=== PATIENT | male | born 1960 | race African-American/Black ===

== ENCOUNTER 2017-05-29 13:09 | Inpatient (IN) | payer OTHER ==
[2017-05-29] MEDS ORDERED: ASPIRIN 81 MG CHEWABLE TABLETS PO ONE (13:33)
--- NOTE | 2017-05-29 13:38 | PDOC ---
History of Present Illness - General Stated Complaint: DEFIBRILLATOR WENT OFF Time Seen by Provider: 05/29/17 13:25 History Source: Patient Exam Limitations: No Limitations - History of Present Illness Initial Comments: 05/29/17 13:36 Patient is a 56M with history of HTN, HLD, non-ischemic cardiomyopthy s/p defibrillator placement due to arrhythmia, TIA s/p ANTONIO showing vegetation, and ? afib (patient reported, not on chart or ekg) here today complaining of defibrillator discharge. Patient states that he was getting out of bed, started feeling dizzy, short of breath and off, then he was shocked. He states that he felt normal afterwards. He states that he feels fine now. He specifically denies chest pain, shortness of breath, abdominal pain and palpitations. [employer] was contacted, they state that the device discharged at 13:15 twice for vfib at 21 and 41J, with a normal rhythm both before and after the event. They also state that the device is still working properly according to their diagnostics. Patient denies nausea, vomiting, fever and chills. Past History - Past Medical History Allergies/Adverse Reactions: Allergies Allergy/AdvReac Type Severity Reaction Status Date / Time No Known Allergies Allergy Verified 05/29/17 13:37 Home Medications: Ambulatory Orders Metoprolol Tartrate [Lopressor -] 25 mg PO DAILY 02/15/12 Lisinopril [Prinivil -] 10 mg PO DAILY 07/16/13 Warfarin Na [Coumadin] 5 mg PO DAILY@1800 07/16/13 Atorvastatin Ca [Lipitor] 20 mg PO HS 05/29/17 Cardiac Disorders: Yes (cardiomyopathy; mural thrombus, defibrilator) CVA: Yes HTN: Yes - Surgical History Cardiac Surgery: Yes (ICD) - Suicide/Smoking/Psychosocial Hx Smoking Status: No Smoking History: Never smoked Number of Cigarettes Smoked Daily: 0 Hx Alcohol Use: Yes (OCCASIONALLY) Drug/Substance Use Hx: No Substance Use Type: Alcohol Review of Systems - Review of Systems Comments:: 05/29/17 13:54 GENERAL/CONSTITUTIONAL: No fever or chills. No weakness. HEAD, EYES, EARS, NOSE AND THROAT: No change in vision. No sore throat. CARDIOVASCULAR: No chest pain. Positive for shortness of breath RESPIRATORY: No cough, wheezing, or hemoptysis. GASTROINTESTINAL: No nausea, vomiting, diarrhea or constipation. GENITOURINARY: No dysuria, frequency, or change in urination. MUSCULOSKELETAL: No joint or muscle swelling or pain. No neck or back pain. SKIN: No rash NEUROLOGIC: No headache, vertigo, loss of consciousness, or change in strength/ sensation. ALLERGIC/IMMUNOLOGIC: No hives or skin allergy. *Physical Exam - Physical Exam Comments: 05/29/17 14:25 GENERAL: Awake, alert, and fully oriented, in no acute distress HEAD: No signs of trauma, normocephalic, atraumatic EYES: PERRLA, EOMI, sclera anicteric, conjunctiva clear LUNGS: No distress, speaks full sentences, clear to auscultation bilaterally HEART: Regular rate and rhythm, normal S1 and S2, no murmurs, rubs or gallops, peripheral pulses normal and equal bilaterally. ABDOMEN: Soft, nontender, normoactive bowel sounds. No guarding, no rebound. No masses EXTREMITIES: Normal inspection, Normal range of motion, no edema. No clubbing or cyanosis. NEUROLOGICAL: Cranial nerves II through XII grossly intact. Normal speech, no focal sensorimotor deficits SKIN: Warm, Dry, normal turgor, no rashes or lesions noted. ED Treatment Course - LABORATORY CBC & Chemistry Diagram: 05/29/17 14:00 05/29/17 14:00 - RADIOLOGY Radiology Studies Ordered: Category Date Time Status CHEST X-RAY PORTABLE* [RAD] Stat Radiology 05/29/17 13:34 Ordered Medical Decision Making - Medical Decision Making 05/29/17 14:25 56M with history of HTN, HLD, non-ischemic cardiomyopthy s/p defibrillator placement due to arrhythmia, TIA s/p ANTONIO showing vegetation, and ?afib (patient reported, not on chart or ekg) here today complaining of defibrillator discharge. Vital signs stable. Exam unremarkable. Two shocks for vfib per [employer] tech. Records and rhythm strip pending fax. Will evaluate further with cbc, cmp, mag, ekg, cxr, trop. Will give aspirin. EKG shows normal sinus rhythm with one PVC. Normal rate, normal axis. No st elevations/depressions. T-wave inversions in lateral leads. 05/29/17 14:40 Dr Leana Perez consulted on patient, requested full rhythm strip. No further reqs. Will put in formal consult. 05/29/17 14:47 CXR shows no acute cardiopulmonary process. 05/29/17 14:56 Laboratory Tests 05/29/17 05/29/17 14:00 14:00 WBC 6.8 Hgb 13.6 Hct 43.2 Plt Count 209 Potassium 4.6 Creatinine 1.7 H Troponin I 0.02 CBC normal. K and mag normal. Cr 1.7 at baseline. Trop .02. Spoke with Dr Acevedo , will admit to inpatient tele. Second trop scheduled for 7:15. *DC/Admit/Observation/Transfer Diagnosis at time of Disposition: Arrhythmia - Discharge Dispostion Condition at time of disposition: Stable Admit: Yes - Referrals - Patient Instructions - Post Discharge Activity
[2017-05-29] MEDS ORDERED: ASPIRIN 81 MG CHEWABLE TABLETS ONE (13:49)
[2017-05-29 14:13] LABS: BASO % 0.3 % (0-2.0); EOS % 1.2 % (0-4.5); MCH 28.6 pg (25.7-33.7); MCHC 31.5 g/dl (32.0-35.9); MEAN CELL VOLUME 90.8 fl (80-96); MEAN PLT VOLUME 10.2 fl (7.5-11.1); NEUT % 70.9 % (42.8-82.8); PLATELET COUNT 209 K/MM3 (134-434); RDW 13.6 % (11.9-15.9); WHITE BLOOD COUNT 6.8 K/mm3 (4.0-10.0)
--- NOTE | 2017-05-29 14:23 | PDOC ---
Attending Attestation - Resident Resident Name: Kirill Rivas - ED Attending Attestation I have performed the following: I have examined & evaluated the patient, The case was reviewed & discussed with the resident, I agree w/resident's findings & plan, Exceptions are as noted - HPI HPI: 05/29/17 15:19 56yo male presnets for eval of debrillator firing. Per [employer] had vfib at home. Defib x 2 episodes. Currently in sinus. [place] normal prior to defibrillation - Physicial Exam PE: 05/29/17 15:20 Gen: aaox3, nad heart: +s1s2 reg Lungs: cta b/l, L defib L chest wall abd: soft, nt/nd +bs ext: no c/c/e - Medical Decision Making 05/29/17 14:17 I, Dr. Terri Arango, DO, attest that this document has been prepared under my direction and personally reviewed by me in its entirety. I further attest, that it accurately reflects all work, treatment, procedures and medical decision -making performed by me. 05/29/17 14:17 56yo male s/p ICD defibrillation -vfib per [employer] strip faxed from them will check labs cxr currently in sinus rhythm sinus at 85, q waves anterior leads, t wave inversions lateral leads, abnl ekg 05/29/17 14:55 patient will be admitted to tele currently stable will be admitted to dr. brown
[2017-05-29 14:35] LABS: INR 1.54 (0.82-1.09); PROTHROMBIN TIME (PATIENT) 17.4 SEC (9.98-11.88)
[2017-05-29 14:45] LABS: ALBUMIN 3.7 g/dl (3.4-5.0); ANION GAP 7 (8-16); BILIRUBIN,TOTAL 0.4 mg/dL (0.2-1.0); CALCIUM 9.2 mg/dL (8.5-10.1); CO2 26 mmol/L (21-32); CPK 77 IU/L (39-308); CREATININE 1.7 mg/dL (0.7-1.3); GLUCOSE,RANDOM 119 mg/dL (74-106); MAGNESIUM 2.1 mg/dL (1.8-2.4); SGOT/AST 28 U/L (15-37); SGPT/ALT 39 U/L (12-78); TOT PROT 6.7 g/dl (6.4-8.2)
[2017-05-29 14:48] LABS: ALK PHOS 89 U/L (45-117); TROPONIN I 0.02 ng/ml (0.00-0.05)
--- NOTE | 2017-05-29 15:03 | CON.CARD ---
Cardiology Consult (text) - Consultation Consultation Note: CC: ICD shock History of Present Illness: 56 m hx syst chf (nicm, non obs cad on cath 2007 and 2014), icd ([employer]), VF s/p icd shocks 07/2014, dvt? , hld, htn, cva/tia's, ckd who presents s/p ICD shock. reports sitting up in bed today and briefly feeling a little nausea and dizziness. Within seconds he lost consciousness and awoke from the shock from his defibrillator. Monthly weights have been stable. Endorses a GI illness with diarrhea a couple of weeks ago, but otherwise was in good health. Sedentary, but did not notice change in functional capacity. Denies etoh or changes in medication doses. Of note, patient was thought to be on 50 mg of metoprolol, but according to his pill bottle was only on 25 mg of metoprolol. No palps, sob, cp, pnd, orthopnea, le edema, pmhx/Pshx: per hpi social hx: Never smoked family hx: Denies (h/o CAD or chf) ros: per hpi. no f/c/s, cough, congestion, visual disturbances, rashes, bleeding, h/a Ambulatory Orders Metoprolol succinate 25 mg PO DAILY 02/15/12 Lisinopril [Prinivil -] 10 mg PO DAILY 07/16/13 Warfarin Na [Coumadin] 5 mg PO DAILY@1800 07/16/13 Atorvastatin Ca [Lipitor] 20 mg PO HS 05/29/17 Vital Signs - 24 hr 05/29/17 13:34 Temperature 98.5 F Pulse Rate 85 Respiratory 20 Rate Blood Pressure 147/95 O2 Sat by Pulse 96 Oximetry (%) Intake & Output 05/27/17 05/28/17 05/29/17 05/30/17 07:59 07:59 07:59 07:59 Weight 230 lb Constitutional: Yes: Well Nourished, No Distress Eyes: No: Sclera Icterus HENT: No: Nasal Congestion Neck: No: Decreased ROM Respiratory: Yes: CTA Bilaterally. No: Accessory Muscle Use, Rales, Wheezes Gastrointestinal: Yes: Normal Bowel Sounds. No: Distention, Hepatomegaly, Palpable Mass, Tenderness Cardiovascular: Yes: Regular Rate and Rhythm JVD: No Carotid Bruit: No PMI: Non-Displaced Heart Sounds: Yes: S1, S2. No: Gallop Murmur: No: Systolic Murmur, Diastolic Murmur Musculoskeletal: Yes: Other (No kyphosis) Extremities: No: Cool, Cyanosis Edema: No Peripheral Pulses: 2+ Left Carotid, 2+ Right Carotid, 2+ Left Doralis Pedis, 2+ Right Dorsalis Pedis Integumentary: No: Jaundice Neurological: Yes: Alert, Oriented (x3) Psychiatric: No: Agitated - Other Data Labs, Other Data: Laboratory Tests 07/19/14 05/29/17 05/29/17 05:50 14:00 14:00 WBC 6.8 Hgb 13.6 Plt Count 209 INR 1.54 H Potassium Creatinine 1.5 H D Magnesium Troponin I 05/29/17 14:00 WBC Hgb Plt Count INR Potassium 4.6 Creatinine 1.7 H Magnesium 2.1 Troponin I 0.02 ekg: sr with pvc. lateral twi. ICD interrogation: VF treated with 2 shocks echo 08/2015: mod lve, mod-sev dec lvef, global hk, nl rv, mild AR, mild ao root dil 4.3 cm cath 07/2014: non obs cad (only <30% pRCA). Imaging - Results Chest X-ray: Report Reviewed (clear lungs/pleura) Assessment/Plan 56 m hx syst chf (nicm, non obs cad on cath 2007 and 2014), icd ([employer]), VF s/p icd shocks 07/2014, dvt? , hld, htn, cva/tia's, ckd who presents s/p ICD shock. Ventricular fibrillation: - device interrogated in ER ([employer]) shows appropriate therapy delivered x 2 for VF. Electrolytes wnl. - CE neg x 1. Con't toby - No obvious signs of overload, will defer diuresis for now. - repeat echo. - Patient was only on 25 mg of toprol instead of 50 mg. Would increase dose back to 50 mg. nonisch CMP: - appears euvolemic. con't megan, bb. repeat echo HTN: - meds as above. monitor bp. CKD: - slightly increased from baseline. h/o CVA: - no new neurologic defecits. - unclear if patient is on coumadin for h/o CVA or for h/o DVT. - currently INR subtherapeutic, coumadin dosing per pmd. - con't statin.
[2017-05-29] MEDS ORDERED: WARFARIN NA 5 MG TABLET (UD) PO ONE (18:00)
[2017-05-29] MEDS: WARFARIN NA 5 MG TABLET (UD) PO SCH (18:02)
[2017-05-29] MEDS ORDERED: ACETAMINOPHEN 325 MG TABLET (FP) PO PRN (18:25)
--- NOTE | 2017-05-29 18:25 | HP ---
Admitting History and Physical - Primary Care Physician PCP: Sulma Acevedo - Admission History of Present Illness: Patient is a 56M with history of HTN, HLD, ckd, non-ischemic cardiomyopthy s/p defibrillator placement due to arrhythmia, TIA and afib--- here today complaining of defibrillator discharge. Patient states that he was getting out of bed, started feeling dizzy, short of breath and off, then he was shocked. He states that he felt normal afterwards. He states that he feels fine now. He specifically denies chest pain, shortness of breath, abdominal pain and palpitations. [employer] was contacted, they state that the device discharged at 13:15 twice for vfib at 21 and 41J, with a normal rhythm both before and after the event. They also state that the device is still working properly according to their diagnostics. Patient denies nausea, vomiting, fever and chills. pt well known to me from office pt to be admitted to tele seen by me in er at present comfortable denies cp/sob/ abd pain denies headche/ dizziness no u /b trouble had discussed with er physician earlier also. History Source: Patient Limitations to Obtaining History: No Limitations - Past Medical History [employer]USTOM [employer]ILOR: Yes: TIA Cardiovascular: Yes: Other (nonischemic cardiomyopathy--status post AICD) - Smoking History Smoking history: Never smoked Have you smoked in the past 12 months: No Aproximately how many cigarettes per day: 0 - Alcohol/Substance Use Hx Alcohol Use: Yes (OCCASIONALLY) Home Medications - Allergies Allergies/Adverse Reactions: Allergies Allergy/AdvReac Type Severity Reaction Status Date / Time No Known Allergies Allergy Verified 05/29/17 13:37 - Home Medications Home Medications: Ambulatory Orders Metoprolol Tartrate [Lopressor -] 25 mg PO DAILY 02/15/12 Lisinopril [Prinivil -] 10 mg PO DAILY 07/16/13 Warfarin Na [Coumadin] 5 mg PO DAILY@1800 07/16/13 Atorvastatin Ca [Lipitor] 20 mg PO HS 05/29/17 Review of Systems Unable to obtain ROS, reason: see barrow Physical Examination Vital Signs: Vital Signs Temperature 98.5 F 05/29/17 13:34 Pulse Rate 83 05/29/17 17:12 Respiratory Rate 20 05/29/17 13:34 Blood Pressure 136/86 12/20/17 17:12 O2 Sat by Pulse Oximetry (%) 100 05/29/17 17:12 Constitutional: Yes: No Distress, Calm Eyes: Yes: Conjunctiva Clear, PERRL HENT: Yes: WNL Neck: Yes: Supple Cardiovascular: Yes: Regular Rate and Rhythm Respiratory: Yes: CTA Bilaterally Gastrointestinal: Yes: Normal Bowel Sounds, Soft Edema: No Neurological: Yes: WNL, Alert Psychiatric: Yes: Alert Labs: CBC, BMP 05/29/17 14:00 05/29/17 14:00 Imaging - Results Chest X-ray: Report Reviewed Problem List - Problems (1) Defibrillator discharge Code(s): Z45.02 - ENCNTR FOR ADJUST AND MGMT OF AUTOMATIC IMPLNTBL CARD DEFIB (2) Hypertension Code(s): I10 - ESSENTIAL (PRIMARY) HYPERTENSION (3) Renal insufficiency Code(s): N28.9 - DISORDER OF KIDNEY AND URETER, UNSPECIFIED Assessment/Plan monitor on tele closely preet goetz blockers cardiology on case inr subtherapeutic- extra dose today discussed with nursing staff also. will follow cc time 30 min.
[2017-05-29 19:01] VITALS: BMI 31.8
[2017-05-29 19:34] LABS: TROPONIN I 0.05 ng/ml (0.00-0.05)
[2017-05-29] MEDS ORDERED: ATORVASTATIN CA 40 MG TABLET (FP) ONE (21:34)
[2017-05-29] MEDS: ATORVASTATIN CA 20 MG TABLET (FP) PO SCH (21:44)
[2017-05-30 07:17] LABS: BASO % 0.9 % (0-2.0); EOS % 1.6 % (0-4.5); MCH 28.9 pg (25.7-33.7); MCHC 31.8 g/dl (32.0-35.9); MEAN CELL VOLUME 90.8 fl (80-96); MEAN PLT VOLUME 11.2 fl (7.5-11.1); PLATELET COUNT 195 K/MM3 (134-434); RDW 13.8 % (11.9-15.9); WHITE BLOOD COUNT 8.2 K/mm3 (4.0-10.0)
[2017-05-30 07:46] LABS: INR 1.6 (0.82-1.09); PROTHROMBIN TIME (PATIENT) 18.1 SEC (9.98-11.88)
[2017-05-30 08:09] LABS: ALBUMIN 3.5 g/dl (3.4-5.0); ANION GAP 9 (8-16); CALCIUM 8.6 mg/dL (8.5-10.1); CHOLESTEROL 167 mg/dL (50-200); CO2 22 mmol/L (21-32); CREATININE 1.4 mg/dL (0.7-1.3); GLUCOSE,RANDOM 93 mg/dL (74-106); SGOT/AST 29 U/L (15-37); SGPT/ALT 41 U/L (12-78)
[2017-05-30 08:15] LABS: TROPONIN I 0.03 ng/ml (0.00-0.05)
[2017-05-30 08:21] LABS: ALK PHOS 90 U/L (45-117); BILIRUBIN,TOTAL 0.6 mg/dL (0.2-1.0); THYROID STIMULATING HORMONE 5.59 uIU/ml (0.358-3.74); TOT PROT 6.5 g/dl (6.4-8.2)
[2017-05-30] MEDS ORDERED: METOPROLOL SUCCINATE 50 MG TAB.SR.24H (FP) ONE (10:27)
[2017-05-30] MEDS ORDERED: LISINOPRIL 5 MG TABLET (FP) ONE (10:28)
[2017-05-30] MEDS: LISINOPRIL 10 MG TABLET (FP) PO SCH (10:32)
[2017-05-30] MEDS: METOPROLOL SUCCINATE 50 MG TAB.SR.24H (FP) PO SCH (10:33)
[2017-05-30 10:58] LABS: FREE T4 1.07 ng/dl (0.76-1.16)
--- NOTE | 2017-05-30 11:20 | PN ---
Progress Note (short form) - Note Progress Note: s: feeling well, at baseline. no cp sob palps dizzy o: Vital Signs Period Temp Pulse Resp BP Sys/Palmer Pulse Ox Last 24 Hr 98.5 F-98.7 F 65-85 18-20 136-167/77-95 95-100 Constitutional: Yes: Well Nourished, No Distress Eyes: No: Sclera Icterus Respiratory: Yes: CTA Bilaterally. No: Accessory Muscle Use, Rales, Wheezes Gastrointestinal: Yes: Normal Bowel Sounds. No: Distention, Hepatomegaly, Palpable Mass, Tenderness Cardiovascular: Yes: Regular Rate and Rhythm JVD: No Heart Sounds: Yes: S1, S2. No: Gallop Murmur: No: Systolic Murmur, Diastolic Murmur Musculoskeletal: Yes: Other (No kyphosis) Extremities: No: Cool, Cyanosis Edema: No Integumentary: No: Jaundice Neurological: Yes: Alert, Oriented (x3) Psychiatric: No: Agitated Current Medications Generic Name Dose Route Start Last Admin Trade Name Freq PRN Reason Stop Dose Admin Acetaminophen 650 mg 05/29/17 18:25 Tylenol - PO Q6H PRN FEVER OR PAIN Atorvastatin Calcium 20 mg 05/29/17 22:00 05/29/17 21:44 Lipitor - PO 20 mg HS MARIANA Administration Lisinopril 10 mg 05/30/17 10:00 05/30/17 10:32 Prinivil PO Not Given DAILY MARIANA Metoprolol Succinate 50 mg 05/30/17 10:00 05/30/17 10:33 Toprol Xl - PO Not Given DAILY [facility] Warfarin Sodium 5 mg 05/29/17 18:00 05/29/17 18:02 Coumadin - PO Not Given DAILY@1800 MARIANA Warfarin Sodium 3 mg 05/30/17 18:00 Coumadin - PO 05/30/17 18:01 ONCE@1800 ONE - Other Data Labs, Other Data: CBC, BMP 05/30/17 06:00 05/30/17 06:00 ekg: sr with pvc. lateral twi. ICD interrogation: VF treated with 2 shocks echo 08/2015: mod lve, mod-sev dec lvef, global hk, nl rv, mild AR, mild ao root dil 4.3 cm cath 07/2014: non obs cad (only <30% pRCA). tele: sr, nsvt 6 beats Assessment/Plan 56 m hx syst chf (nicm, non obs cad on cath 2007 and 2014), icd ([employer]), VF s/p icd shocks 07/2014, dvt? , hld, htn, cva/tia's, ckd who presents s/p ICD shock. Ventricular fibrillation: - device interrogated in ER ([employer])) shows appropriate therapy delivered x 2 for VF. Electrolytes wnl. - Dillon neg, no signs acs - No obvious signs of overload, will defer diuresis for now. - repeat echo. - Patient was only on 25 mg of toprol instead of 50 mg. Will increase dose back to 50 mg. - monitor on tele 24 hours, possible dc home tomorrow nonisch CMP: - appears euvolemic. con't megan, bb. repeat echo HTN: - meds as above. monitor bp. CKD: - slightly increased from baseline. h/o CVA: - no new neurologic defecits. - unclear if patient is on coumadin for h/o CVA or for h/o DVT. - currently INR subtherapeutic, coumadin dosing per pmd. - con't statin.
--- NOTE | 2017-05-30 16:33 | EKG ---
Test Reason : Blood Pressure : / mmHG Vent. Rate : 085 BPM Atrial Rate : 085 BPM P-R Int : 190 ms QRS Dur : 116 ms QT Int : 376 ms P-R-T Axes : 046 -18 105 degrees QTc Int : 447 ms SINUS RHYTHM WITH OCCASIONAL PREMATURE VENTRICULAR COMPLEXES SEPTAL INFARCT (CITED ON OR BEFORE 18-JUL-2014) T WAVE ABNORMALITY, CONSIDER LATERAL ISCHEMIA ABNORMAL ECG WHEN COMPARED WITH ECG OF 18-JUL-2014 12:22, PREMATURE VENTRICULAR COMPLEXES ARE NOW PRESENT QUESTIONABLE CHANGE IN INITIAL FORCES OF SEPTAL LEADS NONSPECIFIC T WAVE ABNORMALITY, WORSE IN INFERIOR LEADS Confirmed by EVERETTE FELDMAN MD ([id number]) on 05/30/2017 4:33:10 PM Referred By: Confirmed By:EVERETTE FELDMAN MD
[2017-05-30] MEDS ORDERED: WARFARIN NA 3 MG TABLET PO ONE (18:00)
[2017-05-30] MEDS ORDERED: WARFARIN NA 1 MG TABLET (FP) ONE (18:07)
[2017-05-30] MEDS ORDERED: WARFARIN NA 5 MG TABLET (UD) ONE (18:07)
[2017-05-30] MEDS: WARFARIN NA 5 MG TABLET (UD) PO SCH (18:13)
--- NOTE | 2017-05-30 19:21 | PN ---
Progress Note (short form) - Note Progress Note: Patient seen and examined. Comfortable No complaints Feels well and denies chest pain or short of breath. Vital Signs Temp 98.2 F 05/30/17 18:59 Pulse 74 05/30/17 18:59 Resp 14 05/30/17 18:59 BP 162/96 05/30/17 18:59 Pulse Ox 99 05/30/17 17:59 Intake & Output 05/29/17 05/30/17 05/30/17 23:59 11:59 23:59 Intake Total 400 Balance 400 Weight 235 lb Intake: Oral 400 Other: Voiding Method Toilet Height 6 ft Body Mass Index (BMI) 31.8 Weight Measurement Method Stated by Patient Weight Measurement Method Est/Stated by Patient Active Medications Acetaminophen (Tylenol -) 650 mg PO Q6H PRN PRN Reason: FEVER OR PAIN Amlodipine Besylate (Norvasc -) 5 mg PO DAILY [facility] Atorvastatin Calcium (Lipitor -) 20 mg PO HS [facility] Last Admin: 05/29/17 21:44 Dose: 20 mg Lisinopril (Prinivil) 10 mg PO DAILY [facility] Last Admin: 05/30/17 10:32 Dose: Not Given Metoprolol Succinate (Toprol Xl -) 50 mg PO DAILY [facility] Last Admin: 05/30/17 10:33 Dose: Not Given Warfarin Sodium (Coumadin -) 5 mg PO DAILY@1800 [facility] Last Admin: 05/30/17 18:13 Dose: 5 mg CBC, BMP 05/30/17 06:00 05/30/17 06:00 Physical Examination Vital Signs: Vital Signs Temperature 98.5 F 05/29/17 13:34 Pulse Rate 83 05/29/17 17:12 Respiratory Rate 20 05/29/17 13:34 Blood Pressure 136/86 05/29/17 17:12 O2 Sat by Pulse Oximetry (%) 100 05/29/17 17:12 Constitutional: Yes: No Distress, Calm/comfortable Eyes: Yes: Conjunctiva Clear, PERRLA HENT: Yes: WNL Neck: Yes: Supple Cardiovascular: Yes: Regular Rate and Rhythm Respiratory: Yes: CTA Bilaterally Gastrointestinal: Yes: Normal Bowel Sounds, Soft Edema: No Neurological: Yes: WNL, Alert--no deficits Psychiatric: Yes: Alert Imaging - Results Chest X-ray: Report Reviewed Assessment/Plan clinically stable Continue present care Extra dose of Coumadin today Cardiology on case Overall stable Anticipate discharge tomorrow if cleared by cardiology Discussed with patient Patient in agreement Problem List - Problems (1) Defibrillator discharge Code(s): Z45.02 - ENCNTR FOR ADJUST AND MGMT OF AUTOMATIC IMPLNTBL CARD DEFIB (2) Hypertension Code(s): I10 - ESSENTIAL (PRIMARY) HYPERTENSION (3) Renal insufficiency Code(s): N28.9 - DISORDER OF KIDNEY AND URETER, UNSPECIFIED
[2017-05-30] MEDS: ATORVASTATIN CA 20 MG TABLET (FP) PO SCH (21:10)
[2017-05-30] MEDS: amLODIPine BESYLATE 5 MG TABLET (FP) PO SCH (21:11)
[2017-05-31 07:54] LABS: INR 1.72 (0.82-1.09); PROTHROMBIN TIME (PATIENT) 19.4 SEC (9.98-11.88)
--- NOTE | 2017-05-31 09:33 | DS ---
Physical Examination Vital Signs: Vital Signs patient seen eand examined today in his room wants to go home feels well no complaints denies chest pain, sob, dizziness, palpitations Temperature 98.6 F 05/31/17 06:00 Pulse Rate 84 05/31/17 06:00 Respiratory Rate 18 05/31/17 06:00 Blood Pressure 145/95 05/31/17 06:00 O2 Sat by Pulse Oximetry (%) 99 05/30/17 21:00 Constitutional: Yes: No Distress, Calm Eyes: Yes: WNL, Conjunctiva Clear Neck: Yes: Supple Cardiovascular: Yes: Regular Rate and Rhythm Respiratory: Yes: Regular, CTA Bilaterally Gastrointestinal: Yes: Normal Bowel Sounds, Soft Labs: CBC, BMP 05/30/17 06:00 05/30/17 06:00 Discharge Summary Reason For Visit: CARDIAC ARRHYTHMIA Current Active Problems Arrhythmia (Acute) Defibrillator discharge (Acute) Hypertension (Acute) Renal insufficiency (Acute) Hospital Course: Patient admitted after defibrillator discharge ICD interrogation - VF- S/P defibrillator discharge seen by cardiology, echo done electrolytes, TSH were WNL no more arrythmia in tele history of NICM- EF-38% History of TIA ? PAF non obstructive CAD - PATIENT to follow up with PMD AND cardiology in one week will give extra dose of coumadin tonight Condition: Stable - Instructions Referrals: Sulma Acevedo MD [Primary Care Provider] - Disposition: HOME - Home Medications Comprehensive Discharge Medication List: Ambulatory Orders SEE MEDICATION LIST IN D/C PLAN
[2017-05-31 09:45] VITALS: BP 154/88; PULSE 88; TEMP 98.2
[2017-05-31] MEDS: amLODIPine BESYLATE 5 MG TABLET (FP) PO SCH (09:51)
[2017-05-31] MEDS: LISINOPRIL 10 MG TABLET (FP) PO SCH (09:51)
[2017-05-31] MEDS: METOPROLOL SUCCINATE 50 MG TAB.SR.24H (FP) PO SCH (09:52)
--- NOTE | 2017-05-31 11:27 | PN ---
Progress Note (short form) - Note Progress Note: s: feeling well, at baseline. no cp sob palps dizzy o: Vital Signs Period Temp Pulse Resp BP Sys/Palmer Pulse Ox Last 24 Hr 98.2 F-98.9 F 68-88 14-18 129-162/75-96 98-99 Constitutional: Yes: Well Nourished, No Distress Eyes: No: Sclera Icterus Respiratory: Yes: CTA Bilaterally. No: Accessory Muscle Use, Rales, Wheezes Gastrointestinal: Yes: Normal Bowel Sounds. No: Distention, Hepatomegaly, Palpable Mass, Tenderness Cardiovascular: Yes: Regular Rate and Rhythm JVD: No Heart Sounds: Yes: S1, S2. No: Gallop Murmur: No: Systolic Murmur, Diastolic Murmur Musculoskeletal: Yes: Other (No kyphosis) Extremities: No: Cool, Cyanosis Edema: No Integumentary: No: Jaundice Neurological: Yes: Alert, Oriented (x3) Psychiatric: No: Agitated Current Medications Generic Name Dose Route Start Last Admin Trade Name Freq PRN Reason Stop Dose Admin Acetaminophen 650 mg 05/29/17 18:25 Tylenol - PO Q6H PRN FEVER OR PAIN Amlodipine Besylate 5 mg 05/30/17 19:30 05/31/17 09:51 Norvasc - PO 5 mg DAILY MARIANA Administration Atorvastatin Calcium 20 mg 05/29/17 22:00 05/30/17 21:10 Lipitor - PO 20 mg HS MARIANA Administration Lisinopril 10 mg 05/30/17 10:00 05/31/17 09:51 Prinivil PO Not Given DAILY MARIANA Metoprolol Succinate 50 mg 05/30/17 10:00 05/31/17 09:52 Toprol Xl - PO Not Given DAILY MARIANA Warfarin Sodium 5 mg 05/29/17 18:00 05/30/17 18:13 Coumadin - PO 5 mg DAILY@1800 MARIANA Administration Warfarin Sodium 2 mg 05/31/17 11:30 Coumadin - PO 05/31/17 11:31 ONCE ONE - Other Data Labs, Other Data: CBC, BMP 05/30/17 06:00 05/30/17 06:00 ekg: sr with pvc. lateral twi. ICD interrogation: VF treated with 2 shocks echo 08/2015: mod lve, mod-sev dec lvef, global hk, nl rv, mild AR, mild ao root dil 4.3 cm echo 05/2017: lvef 25-30, global hk, nl rv, mild ar, rvsp 30-40 cath 07/2014: non obs cad (only <30% pRCA). tele: sr, brief nsvt Assessment/Plan 56 m hx syst chf (nicm, non obs cad on cath 2007 and 2014), icd ([employer]), VF s/p icd shocks 07/2014, dvt? , hld, htn, cva/tia's, ckd who presents s/p ICD shock. Ventricular fibrillation: - device interrogated in ER ([employer]) shows appropriate therapy delivered x 2 for VF. Electrolytes wnl. - Dillon neg, no signs acs - No obvious signs of overload, will defer diuresis for now. - repeat echo similar to prior - tele benign - Patient was only on 25 mg of toprol instead of 50 mg. Will increase dose back to 50 mg. nonisch CMP: - appears euvolemic. con't megan, bb. HTN: - meds as above. CKD: -stable h/o CVA: - no new neurologic defecits. - unclear if patient is on coumadin for h/o CVA or for h/o DVT. - con't statin. cardiac armenta stable for dc
[2017-05-31] MEDS: WARFARIN NA 5 MG TABLET (UD) PO SCH (11:38)
[2017-05-31] MEDS: WARFARIN NA 2 MG TABLET (UD) PO ONE ×2 (11:38→11:39)
--- NOTE | 2017-05-31 18:12 | PN ---
Progress Note (short form) - Note Progress Note: patient seen and examined with DEEPAK Harding earlier today. Patient has no complaints I reviewed the documentation I discussed the case with [employer] Meaghan I reconciled the medications with her. Agree with exam assessment and plan Discharged today patient to follow in office--Next Saturday--recheck INR Patient also to follow with cardiology Patient in agreement Vital Signs Period Temp Pulse Resp BP Sys/Palmer Pulse Ox Last 24 Hr 98.2 F-98.9 F 68-88 14-18 139-162/75-96 99-99 CBC, BMP 05/30/17 06:00 05/30/17 06:00 INR, PTT INR 1.72 (0.82-1.09) H 05/31/17 05:05 Physical Examination Constitutional: Yes: No Distress, Calm/comfortable Eyes: Yes: Conjunctiva Clear, PERRLA HENT: Yes: WNL Neck: Yes: Supple Cardiovascular: Yes: Regular Rate and Rhythm Respiratory: Yes: CTA Bilaterally Gastrointestinal: Yes: Normal Bowel Sounds, Soft Edema: No Neurological: Yes: WNL, Alert--no deficits Psychiatric: Yes: Alert assessment and plan stable Extra dose of Coumadin today Before discharge Problem List - Problems (1) Defibrillator discharge Code(s): Z45.02 - ENCNTR FOR ADJUST AND MGMT OF AUTOMATIC IMPLNTBL CARD DEFIB (2) Hypertension Code(s): I10 - ESSENTIAL (PRIMARY) HYPERTENSION (3) Renal insufficiency Code(s): N28.9 - DISORDER OF KIDNEY AND URETER, UNSPECIFIED
== END 2017-05-31 11:48 | disposition home or self-care (01) | DRG 309 ==
LOC: JER 13:09 → JERBED 14:58 → J4W 05-30 18:21
PROVIDERS: ADMIT Internal Medicine; ATTEND Internal Medicine
PROC: 4A02XFZ Measurement of Cardiac Rhythm, External Approach (ICD-10-PCS; principal; 2017-05-30)
DX: I49.01 Ventricular fibrillation (principal); I50.22 Chronic systolic (congestive) heart failure; I13.0 Hypertensive heart and chronic kidney disease with heart failure and stage 1 through stage 4 chronic kidney disease, or unspecified chronic kidney disease; I42.8 Other cardiomyopathies; E78.5 Hyperlipidemia, unspecified; Z86.73 Personal history of transient ischemic attack (TIA), and cerebral infarction without residual deficits; N18.9 Chronic kidney disease, unspecified; I25.10 Atherosclerotic heart disease of native coronary artery without angina pectoris; Z95.810 Presence of automatic (implantable) cardiac defibrillator
CPT/HCPCS: 36415; 71010-TC; 80053; 82465; 82550; 83735; 84439; 84443; 84484; 85025; 85610; 93005; 93010; 93306-TC; 99285-25

== ENCOUNTER 2017-06-08 07:38 | Inpatient (IN) | payer OTHER ==
[2017-06-08 07:48] VITALS: BMI 31.6
--- NOTE | 2017-06-08 07:52 | PDOC ---
History of Present Illness - General Chief Complaint: Lightheaded Stated Complaint: LIGHTHEADED, SOB Time Seen by Provider: 06/08/17 07:51 History Source: Patient - History of Present Illness Initial Comments: 06/08/17 08:23 Patient is a 56M with history of HTN, HLD, ckd, non-ischemic cardiomyopthy s/p defibrillator placement due to arrhythmia, TIA and afib admitted to telemetry last week (d/c on the ) for defibrillator discharge, presents to the ER today after waking up this morning with nausea, dizziness and shortness of breath. He describes the dizziness as feeling off balance "like drunk". Was discharged on amlodipine last time but stopped it two days ago due to side effect of nausea , product support representative aware. Did not take his Metoprolol and Lasix this morning. Still nauseous in the ED but denies any episode of vomiting. Denies headache. Patient doesn't feel this is due to defibrillator like last time. Denies acute changes in vision, neurological deficits. Echo done on the describes sever left ventricular ejection fraction of 25- 30%. 06/08/17 08:41 06/08/17 08:53 Past History - Past Medical History Allergies/Adverse Reactions: Allergies Allergy/AdvReac Type Severity Reaction Status Date / Time No Known Allergies Allergy Verified 06/08/17 07:46 Home Medications: Ambulatory Orders Lisinopril [Prinivil] 10 mg PO DAILY 07/16/13 Atorvastatin Ca [Lipitor] 20 mg PO HS 05/29/17 Acetaminophen [Tylenol .Regular Strength -] 650 mg PO Q6H PRN tablet 05/31/17 Metoprolol Succinate [Toprol XL -] 50 mg PO DAILY 30 Days #30 tab.sr.24h Warfarin Na [Coumadin -] 5 mg PO DAILY@1800 tablet 05/31/17 Warfarin Na [Coumadin] 7.5 mg PO DAILY 06/08/17 Cardiac Disorders: Yes (cardiomyopathy; mural thrombus, defibrilator) CVA: Yes COPD: No HTN: Yes - Surgical History Cardiac Surgery: Yes (ICD) - Immunization History Immunization Up to Date: Yes - Suicide/Smoking/Psychosocial Hx Smoking Status: No Smoking History: Never smoked Have you smoked in the past 12 months: No Number of Cigarettes Smoked Daily: 0 Hx Alcohol Use: Yes (social) Drug/Substance Use Hx: No Substance Use Type: Alcohol Review of Systems - Review of Systems Able to Perform ROS?: Yes Is the patient limited Kazakh proficient: No Constitutional: Yes: See HPI HEENTM: No: Symptoms Reported Respiratory: Yes: See HPI, Shortness of Breath Cardiac (ROS): No: Symptoms Reported ABD/GI: No: Symptoms Reported : No: Symptoms Reported Musculoskeletal: No: Symptoms Reported Integumentary: No: Symptoms Reported Neurological: Yes: See HPI Endocrine: No: Symptoms Reported Hematologic/Lymphatic: No: Symptoms Reported All Other Systems: Reviewed and Negative *Physical Exam - Vital Signs Last Vital Signs Temp Pulse Resp BP Pulse Ox 98.3 F 55 L 20 184/89 96 06/08/17 07:43 06/08/17 07:43 06/08/17 07:43 06/08/17 07:43 06/08/17 07:43 - Physical Exam General Appearance: Yes: Nourished, Appropriately Dressed. No: Apparent Distress HEENT: positive: EOMI, CHAVEZ, Normal ENT Inspection Neck: positive: Trachea midline. negative: Tender Respiratory/Chest: positive: Lungs Clear, Normal Breath Sounds. negative: Chest Tender, Respiratory Distress Cardiovascular: positive: Irregularly Irregular Vascular Pulses: Dorsalis-Pedis (R): 2+, Doralis-Pedis (L): 2+ Gastrointestinal/Abdominal: positive: Normal Bowel Sounds, Flat. negative: Tender Musculoskeletal: positive: Normal Inspection Extremity: positive: Delayed Capillary Refill Neurologic: positive: Fully Oriented, Alert, Normal Mood/Affect ED Treatment Course - LABORATORY CBC & Chemistry Diagram: 06/08/17 08:27 06/08/17 08:27 Medical Decision Making - Medical Decision Making 06/08/17 09:42 Patient is a 56M with history of HTN, HLD, ckd, non-ischemic cardiomyopthy s/p defibrillator placement due to arrhythmia, TIA and afib presenting with dizziness, sob and nausea. workup for arrythmia with defib. interrogation, cardiac workup vs pneumonia vs stroke EKG: Sinus rhtym with occasional PVC's. Possible Left atrial enlargement Septal infarct, age undertermined Inferior infarct, age undertermined T wave abnormality, consider lateral ischemia.. Ventricular rate 93 LA:190 QRS: 110. QT:382 [employer] Defibrillator device interrogated. Fax pending 06/08/17 09:44 Chest xray negative. Labs pending. TSh ordered as it was elevated last visit. 06/08/17 10:13 All labs WNL. BP repeated: 158/100 06/08/17 10:15 Morning Home meds administered (toprol xl and lisinopril) 06/08/17 11:[address] [facility] obs for evaluation of vertigo in the context of stroke history, cva event. *DC/Admit/Observation/Transfer Diagnosis at time of Disposition: Vertigo, Pre-syncope - Discharge Dispostion Admit: Yes - Referrals Referrals: Sulma Acevedo MD [Primary Care Provider] - - Patient Instructions - Post Discharge Activity
--- NOTE | 2017-06-08 07:52 | PDOC ---
Attending Attestation - Resident Resident Name: [email or web address] - HPI HPI: 06/08/17 09:35 pt presents to the ED complaining of generalized malaise, shortness of breath and feeling " off balance" . Denies chest pain. States that he feels like he is on a boat or has been drinking. Recent admission for defibrilator firing, with negative work up. - Physicial Exam PE: 06/08/17 09:36 Agree with resident exam. Patient is well appearing with clear lungs. - Medical Decision Making 06/08/17 09:36 Pt presents to the ED complaining of shortness of breath and a feeling of being "off balance" that seems consistent with vertigo. Patient is high risk for CVA. Will admit to observation for MRI. Patient is also complaining of SOB and ROCK. May be an anginal equivalent, although the patient has a recent negative cardiac work up. Will check serial cardiac enzymes.
[2017-06-08 08:51] LABS: BASO % 1.2 % (0-2.0); EOS % 1.8 % (0-4.5); HEMATOCRIT 45.6 % (35.4-49); HEMOGLOBIN 14.2 GM/dL (11.7-16.9); LYMPH % 21.6 % (8-40); MCH 28.2 pg (25.7-33.7); MCHC 31.2 g/dl (32.0-35.9); MEAN CELL VOLUME 90.4 fl (80-96); MEAN PLT VOLUME 10.8 fl (7.5-11.1); MONO % 9.9 % (3.8-10.2); NEUT % 65.5 % (42.8-82.8); PLATELET COUNT 165 K/MM3 (134-434); RBC 5.05 M/mm3 (4.00-5.60); RDW 13.1 % (11.9-15.9); WHITE BLOOD COUNT 6.4 K/mm3 (4.0-10.0)
[2017-06-08 09:10] LABS: ALBUMIN 3.7 g/dl (3.4-5.0); ANION GAP 9 (8-16); BILIRUBIN,TOTAL 0.6 mg/dL (0.2-1.0); BLOOD UREA NITROGEN 19 mg/dL (7-18); CALCIUM 8.8 mg/dL (8.5-10.1); CHLORIDE 110 mmol/L (98-107); CO2 21 mmol/L (21-32); CREATININE 1.6 mg/dL (0.7-1.3); GLUCOSE,RANDOM 140 mg/dL (74-106); SGPT/ALT 36 U/L (12-78); SODIUM 140 mmol/L (136-145); TOT PROT 6.6 g/dl (6.4-8.2)
[2017-06-08 09:19] LABS: ALK PHOS 110 U/L (45-117)
[2017-06-08 09:22] LABS: INR 2.12 (0.82-1.09)
[2017-06-08 09:23] LABS: POTASSIUM 4.3 mmol/L (3.5-5.1); SGOT/AST 27 U/L (15-37)
[2017-06-08] MEDS ORDERED: LISINOPRIL 10 MG TABLET (FP) PO ONE (10:14)
[2017-06-08] MEDS ORDERED: METOPROLOL SUCCINATE 50 MG TAB.SR.24H (FP) PO ONE (10:14)
--- NOTE | 2017-06-08 10:55 | EKG ---
Test Reason : Blood Pressure : / mmHG Vent. Rate : 093 BPM Atrial Rate : 093 BPM P-R Int : 190 ms QRS Dur : 110 ms QT Int : 382 ms P-R-T Axes : 047 -22 088 degrees QTc Int : 474 ms SINUS RHYTHM WITH OCCASIONAL PREMATURE VENTRICULAR COMPLEXES POSSIBLE LEFT ATRIAL ENLARGEMENT SEPTAL INFARCT (CITED ON OR BEFORE 18-JUL-2014) T WAVE ABNORMALITY, CONSIDER LATERAL ISCHEMIA ABNORMAL ECG WHEN COMPARED WITH ECG OF 29-MAY-2017 13:18, NO SIGNIFICANT CHANGE WAS FOUND Confirmed by MAX MONAHAN, ERROL ([id number]) on 06/08/2017 10:54:41 AM Referred By: Confirmed By:ERROL SANTANA MD
[2017-06-08] MEDS ORDERED: METOPROLOL SUCCINATE 50 MG TAB.SR.24H (FP) ONE (11:03)
[2017-06-08 11:30] LABS: N-TERMINAL BNP 2628.6 pg/ml (5-125)
[2017-06-08] MEDS ORDERED: ACETAMINOPHEN 325 MG TABLET (FP) PO PRN (15:23)
--- NOTE | 2017-06-08 15:36 | HP ---
Admitting History and Physical - Primary Care Physician PCP: Sulma Acevedo - Admission History of Present Illness: Patient is a 56M with history of HTN, HLD, ckd, non-ischemic cardiomyopthy s/p defibrillator placement due to arrhythmia, TIA and afib admitted to telemetry last week (d/c on the ) for defibrillator discharge, presents to the ER today after waking up this morning with nausea, dizziness and shortness of breath. He describes the dizziness as feeling off balance "like drunk". 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 Did not take his Metoprolol and Lasix this morning. Still nauseous in the ED but denies any episode of vomiting. Denies headache. Patient doesn't feel this is due to defibrillator like last time. Denies acute changes in vision, neurological deficits. Echo done on the describes sever left ventricular ejection fraction of 25- 30%. ct head -ve pt admitted to tele for observation/ neuro consult discussed with er physician. pt seen by me in tele at present comfortable still feels dizzy denies cp/sob. no abd pain. no fever/ chills no headche. 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: Yes: TIA Cardiovascular: Yes: Other (nonischemic cardiomyopathy--status post AICD) - Smoking History Smoking history: Never smoked Have you smoked in the past 12 months: No Aproximately how many cigarettes per day: 0 - Alcohol/Substance Use Hx Alcohol Use: Yes (social) Home Medications - Allergies Allergies/Adverse Reactions: Allergies Allergy/AdvReac Type Severity Reaction Status Date / Time No Known Allergies Allergy Verified 06/08/17 07:46 - Home Medications Home Medications: Ambulatory Orders Lisinopril [Prinivil] 10 mg PO DAILY 07/16/13 Atorvastatin Ca [Lipitor] 20 mg PO HS 05/29/17 Acetaminophen [Tylenol .Regular Strength -] 650 mg PO Q6H PRN tablet 05/31/17 Metoprolol Succinate [Toprol XL -] 50 mg PO DAILY 30 Days #30 tab.sr.24h Warfarin Na [Coumadin -] 5 mg PO DAILY@1800 tablet 05/31/17 Warfarin Na [Coumadin] 7.5 mg PO DAILY 06/08/17 Review of Systems Unable to obtain ROS, reason: see [place] Physical Examination Vital Signs: Vital Signs Temperature 98.3 F 06/08/17 07:43 Pulse Rate 64 06/08/17 14:20 Respiratory Rate 16 06/08/17 14:20 Blood Pressure 136/93 06/08/17 14:20 O2 Sat by Pulse Oximetry (%) 98 06/08/17 14:20 Constitutional: Yes: No Distress, Calm Eyes: Yes: Conjunctiva Clear, PERRL HENT: Yes: WNL Neck: Yes: Supple, Trachea Midline, Other (no bruie) Cardiovascular: Yes: Regular Rate and Rhythm Respiratory: Yes: CTA Bilaterally Gastrointestinal: Yes: Normal Bowel Sounds, Soft Edema: No Peripheral Pulses WNL: Yes Neurological: Yes: WNL, Alert ...Motor Strength: WNL Psychiatric: Yes: Alert Labs: CBC, BMP 06/08/17 08:27 06/08/17 08:27 Imaging - Results Chest X-ray: Report Reviewed Cat Scan: Report Reviewed EKG: Report Reviewed Problem List - Problems (1) Dizziness Code(s): R42 - DIZZINESS AND GIDDINESS (2) AF (paroxysmal atrial fibrillation) Code(s): I48.0 - PAROXYSMAL ATRIAL FIBRILLATION (3) Hypertension Code(s): I10 - ESSENTIAL (PRIMARY) HYPERTENSION (4) Renal insufficiency Code(s): N28.9 - DISORDER OF KIDNEY AND URETER, UNSPECIFIED Assessment/Plan clinically stable. exam benign continue meds reviewed monitor inr neurology consult inr therapeutic will follow
--- NOTE | 2017-06-08 16:42 | CON.CARD ---
Cardiology Consult (text) - Consultation Consultation Note: CC: presyncope/sob History of Present Illness: 56 m hx syst chf (nicm, non obs cad on cath 2007 and 2014), icd ([employer]), VF s/p icd shocks 07/2014 and this month 05/2017, dvt? , hld, htn, cva/tia's, ckd who p/w presyncope/sob States he was recently discharged on amlodipine in addition to toprol. He took it for 2 days but stopped it 2/2 nausea. Yesterday woke up feeling unwell. Sensation of dizziness with brief nausea and sob lasting a few seconds. Dizziness subsequently persisted for the rest of the day. Intermittent worsening and intermittent episodes of sob. Denies shock from ICD. Patient states dizziness persists. States he followed up with pmd after discharge from hospital last week and his weight was stable. no palps, orthopnea, pnd, le edema, bleeding, cp. pmhx/Pshx: per hpi social hx: Never smoked family hx: Denies (h/o CAD or chf) ros: per hpi. no f/c/s, vomiting, diarrhea, cough, congestion, visual disturbances, rashes, h/a Ambulatory Orders Lisinopril [Prinivil] 10 mg PO DAILY 07/16/13 Atorvastatin Ca [Lipitor] 20 mg PO HS 05/29/17 Acetaminophen [Tylenol .Regular Strength -] 650 mg PO Q6H PRN tablet 05/31/17 Metoprolol Succinate [Toprol XL -] 50 mg PO DAILY 30 Days #30 tab.sr.24h Warfarin Na [Coumadin -] 5 mg PO DAILY@1800 tablet 05/31/17 Warfarin Na [Coumadin] 7.5 mg PO DAILY 06/08/17 Current Medications Acetaminophen (Tylenol -) 650 mg PO Q6H PRN PRN Reason: FEVER OR PAIN Atorvastatin Calcium (Lipitor -) 20 mg PO HS MARIANA Lisinopril (Prinivil) 10 mg PO DAILY [facility]IANA Metoprolol Succinate (Toprol Xl -) 50 mg PO DAILY MARIANA Warfarin Sodium (Coumadin -) 5 mg PO DAILY@1800 MARIANA Vital Signs - 24 hr 06/08/17 06/08/17 06/08/17 07:43 10:57 11:31 Temperature 98.3 F 98.1 F Pulse Rate 55 L 76 Pulse Rate [ 82 Apical] Respiratory 20 18 16 Rate Blood Pressure 184/89 138/85 Blood Pressure 152/106 [Left Arm] O2 Sat by Pulse 96 99 Oximetry (%) 06/08/17 06/08/17 06/08/17 14:20 15:26 16:03 Temperature 98 F Pulse Rate 78 Pulse Rate [ 64 Apical] Respiratory 16 19 16 Rate Blood Pressure 138/84 Blood Pressure 136/93 [Left Arm] O2 Sat by Pulse 98 99 99 Oximetry (%) Intake & Output 06/06/17 06/07/17 06/08/17 06/09/17 07:59 07:59 07:59 07:59 Weight 233 lb 233 lb Constitutional: Yes: Well Nourished, No Distress Eyes: No: Sclera Icterus HENT: No: Nasal Congestion Neck: No: Decreased ROM Respiratory: Yes: CTA Bilaterally. No: Accessory Muscle Use, Rales, Wheezes Gastrointestinal: Yes: Normal Bowel Sounds. No: Distention, Hepatomegaly, Palpable Mass, Tenderness Cardiovascular: Yes: Regular Rate and Rhythm JVD: No Carotid Bruit: No PMI: Non-Displaced Heart Sounds: Yes: S1, S2. No: Gallop Murmur: No: Systolic Murmur, Diastolic Murmur Musculoskeletal: Yes: Other (No kyphosis) Extremities: No: Cool, Cyanosis Edema: No Peripheral Pulses: 2+ Left Carotid, 2+ Right Carotid, 2+ Left Doralis Pedis, 2+ Right Dorsalis Pedis Integumentary: No: Jaundice Neurological: Yes: Alert, Oriented (x3) Psychiatric: No: Agitated - Other Data Labs, Other Data: CBC, BMP 06/08/17 08:27 06/08/17 08:27 Laboratory Tests 05/29/17 05/30/17 06/08/17 14:00 06:00 08:27 INR Creatinine 1.7 H 1.4 H B-Natriuretic Peptide 2628.6 H TSH 3.26 D 06/08/17 08:27 INR 2.12 H Creatinine B-Natriuretic Peptide TSH ekg: sr with pvc. leftward axis. incomplete LBBB. anterior q waves. lateral twi. similar to priors. tele: SR, occ 3 beat nsvt, freq pvc's echo 05/2017: lvef 25-30, global hk, nl rv, mild ar, rvsp 30-40 echo 08/2015: mod lve, mod-sev dec lvef, global hk, nl rv, mild AR, mild ao root dil 4.[address]: old occipital, parietal, and cerebellar infarcts. no acute pathology. cxr; wnl cath 07/2014: non obs cad (only <30% pRCA). Assessment/Plan 56 m hx syst chf (nicm, non obs cad on cath 2007 and 2014), icd ([facility] [employer]), VF s/p icd shocks 07/2014 and this month 05/2017, dvt? , hld, htn, cva/tia's, ckd who p/w presyncope/sob presyncope - con't toby. - similar sx's to VF prodrome, --> tele monitoring, for recurrence. see below. - neuro/vertigo work up per neuro/pmd Ventricular fibrillation with ICD shock on prior admit last week: - 05/29 device interrogated in ER ([employer]) --> appropriate therapy delivered x 2 for VF. Electrolytes were wnl. Ischemic work up was negative. Did not appear volume overloaded. Echo was similar to priors. - No recurrence of ICD shocks since last admit. On current admit again appears euvolemic. con't TOBY. - will uptitrate toprol dose to 50 mg bid. lyte repletion prn. - tele monitoring nonisch CMP: - appears euvolemic. not on diuretic as outpatient. con't megan, bb. HTN: - initially elevated, improving on toprol. con't lisinopril CKD: - stable at baseline h/o CVA: - no new neurologic defecits. - unclear if patient is on coumadin for h/o CVA or for h/o DVT. - coumadin dosing per pmd. - con't statin. - neuro following.
[2017-06-08] MEDS: WARFARIN NA 5 MG TABLET (UD) PO SCH (17:29)
--- NOTE | 2017-06-08 19:28 | CON.NEURO ---
Consult - History of Present Illness Chief Complaint: DIZZINESS History of Present Illness: Patient is a 56M with history of HTN, HLD, ckd, non-ischemic cardiomyopthy s/p defibrillator placement due to arrhythmia, TIA and afib ON AC , admitted to telemetry last week (d/c on the ) for defibrillator discharge, presents to the ER today after waking up this morning with nausea, dizziness and shortness of breath. He describes the dizziness as feeling off balance "like drunk" and lightheadedness . Pt attributes his symptoms w starting new medication - amlodipine so stopped it two days ago. Echo done on the describes sever left ventricular ejection fraction of 25-30%. He denies any visual symptoms , no worsening dizziness with turning his head, no dysmetria or weakness ; his symptoms are steady. 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 Cardio/Vascular: Yes: Other (nonischemic cardiomyopathy--status post AICD) - Alcohol/Substance Use Hx Alcohol Use: Yes (social) - Smoking History Smoking history: Never smoked Have you smoked in the past 12 months: No Aproximately how many cigarettes per day: 0 Home Medications - Allergies Allergies/Adverse Reactions: Allergies Allergy/AdvReac Type Severity Reaction Status Date / Time No Known Allergies Allergy Verified 06/08/17 07:46 - Home Medications Home Medications: Ambulatory Orders Lisinopril [Prinivil] 10 mg PO DAILY 07/16/13 Atorvastatin Ca [Lipitor] 20 mg PO HS 05/29/17 Acetaminophen [Tylenol .Regular Strength -] 650 mg PO Q6H PRN tablet 05/31/17 Metoprolol Succinate [Toprol XL -] 50 mg PO DAILY 30 Days #30 tab.sr.24h Amiodarone HCl [Cordarone -] 400 mg PO BID #60 tab 06/11/17 Warfarin Na [Coumadin -] 5 mg PO DAILY@1800 #0 tablet 06/11/17 Review of Systems - Review of Systems Constitutional: reports: No Symptoms (all 14 organs were reviewed and -ve beside HPI.) Eyes: reports: No Symptoms HENT: reports: No Symptoms Neck: reports: No Symptoms Physical Exam-Neuro Vital Signs: Vital Signs Temperature 98 F 06/08/17 15:26 Pulse Rate 78 06/08/17 15:26 Respiratory Rate 16 06/08/17 16:03 Blood Pressure 138/84 06/08/17 15:26 O2 Sat by Pulse Oximetry (%) 99 06/08/17 16:03 Constitutional: Yes: Well Nourished, No Distress Neck: Yes: Supple Cardiovascular: Yes: WNL Respiratory: Yes: CTA Bilaterally Musculoskeletal: Yes: WNL Edema: No Psychiatric: Yes: Alert, Oriented Labs: CBC, BMP 06/08/17 08:27 06/08/17 08:27 INR, PTT INR 2.12 (0.82-1.09) H 06/08/17 08:27 - Neuro Exam Level Of Consciousness: Yes: Alert, Oriented to Person, Oriented to Place, Oriented to Time Eyes: Yes: PERRLA Speech: WNL Cranial Nerves II-XII Intact: Yes Gag: Present DTR's: 1+ Left Bicep, 1+ Right Bicep, 1+ Left Tricep, 1+ Right Tricep, 1+ Left Brachioradialis, 1+ Right Brachioradialis, 1+ Left Achilles, 1+ Right Achilles Babinski: Absent Response to light touch: Normal Response to pain prick: Normal Coordination: Normal: Finger to Nose, Heel to Jacobo Motor Strength: 5/5: Left Arm, Right Arm, Left Leg, Right Leg Gait: Normal Imaging - Results Cat Scan: Report Reviewed, Image Reviewed (No acute finding) Problem List - Problems (1) AF (paroxysmal atrial fibrillation) Code(s): I48.0 - PAROXYSMAL ATRIAL FIBRILLATION (2) Dizziness Code(s): R42 - DIZZINESS AND GIDDINESS (3) Vertigo Code(s): R42 - DIZZINESS AND GIDDINESS (4) Defibrillator discharge Code(s): Z45.02 - ENCNTR FOR ADJUST AND MGMT OF AUTOMATIC IMPLNTBL CARD DEFIB Assessment/Plan 56M with history of HTN, HLD, ckd, non-ischemic cardiomyopthy s/p defibrillator placement due to arrhythmia, TIA and afib ON AC p/w dizziness and lightheadednes ; on exam no focal weakness or sensory impairment; no cerebellar dysmetria or nystagmous ; no evidence of posterior circulation infarct ; CTH wo -ve . Given the hx and exam is suggestive of cardiac cause for dizziness such as orthostatic hypotension - starting amlodipin triggered his symptoms. I suggest repeat CTH wo in 24 hours - not compatible w MRI carotid u/s fall precautions VNG as OP f/u w cardiology PT for dizziness Health maintenance per primary team. Akanksha Caro MD
[2017-06-08] MEDS: ATORVASTATIN CA 20 MG TABLET (FP) PO SCH (21:48)
[2017-06-08] MEDS: METOPROLOL SUCCINATE 50 MG TAB.SR.24H (FP) PO SCH (21:48)
[2017-06-08] MEDS: AMIODARONE HCL 200 MG TABLET (FP) PO SCH (23:34)
[2017-06-09 07:50] LABS: HEMATOCRIT 43.7 % (35.4-49); HEMOGLOBIN 13.9 GM/dL (11.7-16.9); MCH 28.5 pg (25.7-33.7); MCHC 31.7 g/dl (32.0-35.9); MEAN CELL VOLUME 89.8 fl (80-96); MEAN PLT VOLUME 10.7 fl (7.5-11.1); PLATELET COUNT 157 K/MM3 (134-434); RBC 4.86 M/mm3 (4.00-5.60); RDW 12.9 % (11.9-15.9); WHITE BLOOD COUNT 6.7 K/mm3 (4.0-10.0)
[2017-06-09 07:59] LABS: INR 2.02 (0.82-1.09); PROTHROMBIN TIME (PATIENT) 22.8 SEC (9.98-11.88)
[2017-06-09 08:19] LABS: ALBUMIN 3.5 g/dl (3.4-5.0); ALK PHOS 104 U/L (45-117); ANION GAP 8 (8-16); BILIRUBIN,TOTAL 0.6 mg/dL (0.2-1.0); BLOOD UREA NITROGEN 21 mg/dL (7-18); CALCIUM 8.6 mg/dL (8.5-10.1); CHLORIDE 107 mmol/L (98-107); CO2 23 mmol/L (21-32); CREATININE 1.5 mg/dL (0.7-1.3); GLUCOSE,RANDOM 100 mg/dL (74-106); POTASSIUM 4.2 mmol/L (3.5-5.1); SGOT/AST 23 U/L (15-37); SGPT/ALT 34 U/L (12-78); SODIUM 138 mmol/L (136-145); TOT PROT 6.2 g/dl (6.4-8.2)
[2017-06-09] MEDS: LISINOPRIL 10 MG TABLET (FP) PO SCH (09:47)
[2017-06-09] MEDS: METOPROLOL SUCCINATE 50 MG TAB.SR.24H (FP) PO SCH ×2 (09:47→21:26)
[2017-06-09] MEDS: AMIODARONE HCL 200 MG TABLET (FP) PO SCH ×2 (09:47→21:26)
[2017-06-09] MEDS ORDERED: WARFARIN NA 7.5 MG TABLET (FP) PO SCH (10:00)
[2017-06-09] MEDS ORDERED: METOPROLOL SUCCINATE 50 MG TAB.SR.24H (FP) PO SCH (10:00)
--- NOTE | 2017-06-09 15:14 | PN ---
Progress Note (short form) - Note Progress Note: better was dizzy earlier today denies cp/sob. short runs of arrythmia started on amiodarone. all consaults noted pt on coumadin - because of cva/ and severe reduction of lf function Vital Signs Temp 98.2 F 06/09/17 13:57 Pulse 62 06/09/17 13:57 Resp 20 06/09/17 13:57 BP 115/77 06/09/17 13:57 Pulse Ox 97 06/09/17 07:00 Intake & Output 06/08/17 06/09/17 06/09/17 23:59 11:59 23:59 Intake Total 800 Balance 800 Weight 217 lb 4 oz Intake: Oral 800 Other: Voiding Method Toilet Toilet Toilet # Unmeasured Voids Void 2 Bowel Movement No Weight Measurement Method Standing Scale Active Medications Acetaminophen (Tylenol -) 650 mg PO Q6H PRN PRN Reason: FEVER OR PAIN Last Admin: 06/09/17 06:51 Dose: 650 mg Amiodarone HCl (Cordarone -) 400 mg PO BID [facility] Last Admin: 06/09/17 09:47 Dose: 400 mg Atorvastatin Calcium (Lipitor -) 20 mg PO HS [facility] Last Admin: 06/08/17 21:48 Dose: 20 mg Lisinopril (Prinivil) 10 mg PO DAILY [facility] Last Admin: 06/09/17 09:47 Dose: 10 mg Metoprolol Succinate (Toprol Xl -) 50 mg PO BID [facility] Last Admin: 06/09/17 09:47 Dose: 50 mg Warfarin Sodium (Coumadin -) 5 mg PO DAILY@1800 [facility] Last Admin: 06/08/17 17:29 Dose: 5 mg CBC, BMP 06/09/17 07:30 06/09/17 07:30 INR, PTT INR 2.02 (0.82-1.09) H 06/09/17 07:30 Physical Examination Constitutional: Yes: No Distress, Calm Eyes: Yes: Conjunctiva Clear, PERRLA HENT: Yes: WNL Neck: Yes: Supple, Trachea Midline, Other (no bruie) Cardiovascular: Yes: Regular Rate and Rhythm Respiratory: Yes: CTA Bilaterally Gastrointestinal: Yes: Normal Bowel Sounds, Soft Edema: No Peripheral Pulses WNL: Yes Neurological: Yes: WNL, Alert ...Motor Strength: WNL Psychiatric: Yes: Alert Imaging - Results Chest X-ray: Report Reviewed Cat Scan: Report Reviewed EKG: Report Reviewed ct head - old cva -- no acute changes. Assessment/Plan clinically stable. continue current meds monitor inr monitor on tele discussed with pt/ nursing staff will discuss with cardio/ neuro also. inr therapeutic will follow Problem List - Problems (1) Dizziness Code(s): R42 - DIZZINESS AND GIDDINESS (2) AF (paroxysmal atrial fibrillation) Code(s): I48.0 - PAROXYSMAL ATRIAL FIBRILLATION (3) Hypertension Code(s): I10 - ESSENTIAL (PRIMARY) HYPERTENSION (4) Renal insufficiency Code(s): N28.9 - DISORDER OF KIDNEY AND URETER, UNSPECIFIED
--- NOTE | 2017-06-09 17:13 | PN ---
Progress Note (short form) - Note Progress Note: CC: nausea/presyncope S: recurrent 18-19 beat VT overnight. started on amiodarone. patient states dizziness slightly improved today, no longer constant, now occurring intermittently. Also with intermittent sensation of sob lasting a few seconds. Patient endorsed brief flutter sensation during episodes of VT/nsvt, no other sx's. No icd shocks. Current Medications Acetaminophen (Tylenol -) 650 mg PO Q6H PRN PRN Reason: FEVER OR PAIN Last Admin: 06/09/17 06:51 Dose: 650 mg Amiodarone HCl (Cordarone -) 400 mg PO BID [facility] Last Admin: 06/09/17 09:47 Dose: 400 mg Atorvastatin Calcium (Lipitor -) 20 mg PO HS [facility] Last Admin: 06/08/17 21:48 Dose: 20 mg Lisinopril (Prinivil) 10 mg PO DAILY [facility] Last Admin: 06/09/17 09:47 Dose: 10 mg Metoprolol Succinate (Toprol Xl -) 50 mg PO BID [facility] Last Admin: 06/09/17 09:47 Dose: 50 mg Warfarin Sodium (Coumadin -) 5 mg PO DAILY@1800 [facility] Last Admin: 06/08/17 17:29 Dose: 5 mg Vital Signs - 24 hr 06/08/17 06/08/17 06/08/17 18:40 21:00 23:00 Temperature 98.3 F 98.7 F Pulse Rate 68 64 Respiratory 18 18 20 Rate Blood Pressure 133/93 144/91 O2 Sat by Pulse 97 Oximetry (%) 06/08/17 06/09/17 06/09/17 23:10 02:00 06:00 Temperature 98.2 F 98.5 F 98.3 F Pulse Rate 63 63 62 Respiratory 20 20 20 Rate Blood Pressure 148/99 135/89 139/89 O2 Sat by Pulse Oximetry (%) 06/09/17 06/09/17 06/09/17 07:00 09:52 09:53 Temperature 98 F Pulse Rate 72 73 Respiratory 20 20 20 Rate Blood Pressure 129/77 132/87 O2 Sat by Pulse 97 Oximetry (%) 06/09/17 06/09/17 13:57 15:35 Temperature 98.2 F Pulse Rate 62 Respiratory 20 Rate Blood Pressure 115/77 136/98 O2 Sat by Pulse Oximetry (%) Intake & Output 06/07/17 06/08/17 06/09/17 06/10/17 07:59 07:59 07:59 07:59 Intake Total 800 Balance 800 Weight 233 lb 217 lb 4 oz Constitutional: Yes: Well Nourished, No Distress Eyes: No: Sclera Icterus HENT: No: Nasal Congestion Neck: No: Decreased ROM Respiratory: Yes: CTA Bilaterally. No: Accessory Muscle Use, Rales, Wheezes Gastrointestinal: Yes: Normal Bowel Sounds. No: Distention, Hepatomegaly, Palpable Mass, Tenderness Cardiovascular: Yes: Regular Rate and Rhythm JVD: No Carotid Bruit: No PMI: Non-Displaced Heart Sounds: Yes: S1, S2. No: Gallop Murmur: No: Systolic Murmur, Diastolic Murmur Musculoskeletal: Yes: Other (No kyphosis) Extremities: No: Cool, Cyanosis Edema: No Peripheral Pulses: 2+ Left Carotid, 2+ Right Carotid, 2+ Left Doralis Pedis, 2+ Right Dorsalis Pedis Integumentary: No: Jaundice Neurological: Yes: Alert, Oriented (x3) Psychiatric: No: Agitated - Other Data Labs, Other Data: CBC, BMP 06/09/17 07:30 06/09/17 07:30 Laboratory Tests 06/08/17 06/08/17 06/08/17 08:27 16:45 16:45 INR Magnesium 2.0 Total Bilirubin 0.6 AST 27 ALT 36 Alkaline Phosphatase 110 D Creatine Kinase 73 63 Troponin I 0.02 D 0.03 D Albumin 3.7 TSH 3.26 D 06/08/17 06/09/17 06/09/17 21:40 07:30 07:30 INR 2.02 H Magnesium Total Bilirubin AST ALT Alkaline Phosphatase Creatine Kinase 74 Troponin I 0.04 D Albumin 3.5 TSH ekg: sr with pvc. leftward axis. incomplete LBBB. anterior q waves. lateral twi. similar to priors. tele: sr with pvc's, nsvt and recurrent vt up to 20 beats. 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 no acute pathology. repeat head ct 06/09: no change. cxr; wnl cath 07/2014: non obs cad (only <30% pRCA). Assessment/Plan 56 m hx syst chf (nicm, non obs cad on cath 2007 and 2014), icd ([employer]), VF s/p icd shocks 07/2014, dvt? , hld, htn, cva/tia's, ckd who presents s/p ICD shock. nausea/presyncope - CE's neg x 3. No acute ischemic ekg changes. - similar sx's to VF prodrome, --> tele monitoring with recurrent VT (not correlated with presyncopal symptoms, but 06/08 episode on ICD interrogation was significantly more prolonged (lasting up to 2 min). see mgm't below. - neuro/vertigo work up per neuro/pmd. head ct negative. plan for carotid u/ s. Ventricular fibrillation with ICD shock on prior admit last week: - 05/29 device interrogated in ER ([employer]) --> appropriate therapy delivered x 2 for VF. Electrolytes were wnl. Ischemic work up was negative. Did not appear volume overloaded. Echo was similar to priors. - No recurrence of ICD shocks since last admit. 06/08 device interrogation --> 2 prolonged episode of VT (vs. SVT) morning of 06/08 lasting ~ 1 min and 2 1/2 minutes respectively. Prior to that --> frequent recurrent VT episodes < 20 seconds. -appears euvolemic. no evidence of acs. - 06/08 toprol uptitrated to 50 mg bid and amio 400 bid added in evening. - 06/09 con't same mgmt. If prolonged episodes of VT persist overnight, will uptitrate toprol further tomorrow. Discussed case with patient's EP doctor ( Joni). Agrees with plan. No need for invasive intervention/EPS at this time. will con't to monitor. - lyte repletion prn. tele monitoring nonisch CMP: - appears euvolemic. not on diuretic as outpatient. con't megan, bb. - daily standing weights, i/o's HTN: - initially elevated, improving on toprol. con't lisinopril, will uptitrate dose from 10 mg to 20 mg. CKD: - stable at baseline h/o CVA: - no new neurologic defecits. - unclear if patient is on coumadin for h/o CVA or for h/o DVT. - coumadin dosing per pmd. - con't statin. - neuro following.
[2017-06-09] MEDS: WARFARIN NA 5 MG TABLET (UD) PO SCH (18:34)
--- NOTE | 2017-06-09 20:40 | PN ---
Progress Note, Physician History of Present Illness: Patient is a 56M with history of HTN, HLD, ckd, non-ischemic cardiomyopthy s/p defibrillator placement due to arrhythmia, TIA and afib ON AC , admitted to telemetry last week (d/c on the ) for defibrillator discharge, presents to the ER today after waking up this morning with nausea, dizziness and shortness of breath. He describes the dizziness as feeling off balance "like drunk" and lightheadedness . Pt attributes his symptoms w starting new medication - amlodipine so stopped it two days ago. Echo done on the describes sever left ventricular ejection fraction of 25- 30%. He denies any visual symptoms , no worsening dizziness with turning his head, no dysmetria or weakness ; his symptoms are steady. F/U: No new complaints,feels better today. - Current Medication List Current Medications: Active Medications Acetaminophen (Tylenol -) 650 mg PO Q6H PRN PRN Reason: FEVER OR PAIN Last Admin: 06/09/17 06:51 Dose: 650 mg Amiodarone HCl (Cordarone -) 400 mg PO BID [facility] Last Admin: 06/09/17 09:47 Dose: 400 mg Atorvastatin Calcium (Lipitor -) 20 mg PO HS [facility] Last Admin: 06/08/17 21:48 Dose: 20 mg Lisinopril (Prinivil) 10 mg PO DAILY [facility] Last Admin: 06/09/17 09:47 Dose: 10 mg Metoprolol Succinate (Toprol Xl -) 50 mg PO BID [facility] Last Admin: 06/09/17 09:47 Dose: 50 mg Warfarin Sodium (Coumadin -) 5 mg PO DAILY@1800 [facility] Last Admin: 06/09/17 18:34 Dose: 5 mg - Objective Vital Signs: Vital Signs Temperature 98.3 F 06/09/17 17:27 Pulse Rate 66 06/09/17 17:27 Respiratory Rate 20 06/09/17 17:27 Blood Pressure 143/87 06/09/17 17:27 O2 Sat by Pulse Oximetry (%) 97 06/09/17 07:00 Labs: CBC, BMP 06/09/17 07:30 06/09/17 07:30 INR, PTT INR 2.02 (0.82-1.09) H 06/09/17 07:30 Problem List - Problems (1) AF (paroxysmal atrial fibrillation) Code(s): I48.0 - PAROXYSMAL ATRIAL FIBRILLATION (2) Dizziness Code(s): R42 - DIZZINESS AND GIDDINESS (3) Vertigo Code(s): R42 - DIZZINESS AND GIDDINESS (4) Defibrillator discharge Code(s): Z45.02 - ENCNTR FOR ADJUST AND MGMT OF AUTOMATIC IMPLNTBL CARD DEFIB Assessment/Plan - Neuro Exam Level Of Consciousness: Yes: Alert, Oriented to Person, Oriented to Place, Oriented to Time Eyes: Yes: PERRLA Speech: WNL Cranial Nerves II-XII Intact: Yes Gag: Present DTR's: 1+ Left Bicep, 1+ Right Bicep, 1+ Left Tricep, 1+ Right Tricep, 1+ Left Brachioradialis, 1+ Right Brachioradialis, 1+ Left Achilles, 1+ Right Achilles Babinski: Absent Response to light touch: Normal Response to pain prick: Normal Coordination: Normal: Finger to Nose, Heel to Jacobo Motor Strength: 5/5: Left Arm, Right Arm, Left Leg, Right Leg Gait: Normal Imaging - Results Cat Scan: Report Reviewed, Image Reviewed (No acute finding) Problem List - Problems (1) AF (paroxysmal atrial fibrillation) Code(s): I48.0 - PAROXYSMAL ATRIAL FIBRILLATION (2) Dizziness Code(s): R42 - DIZZINESS AND GIDDINESS (3) Vertigo Code(s): R42 - DIZZINESS AND GIDDINESS (4) Defibrillator discharge Code(s): Z45.02 - ENCNTR FOR ADJUST AND MGMT OF AUTOMATIC IMPLNTBL CARD DEFIB Assessment/Plan 56M with history of HTN, HLD, ckd, non-ischemic cardiomyopthy s/p defibrillator placement due to arrhythmia, TIA and afib ON AC p/w dizziness and lightheadednes ; on exam no focal weakness or sensory impairment; no cerebellar dysmetria or nystagmous ; no evidence of posterior circulation infarct ; CTH wo -ve .Given the hx and exam is suggestive of cardiac cause for dizziness such as orthostatic hypotension - starting amlodipin triggered his symptoms. Repeat CTH wo in 24 hours was unremarkable.- not compatible w MRI carotid u/s fall precautions VNG as OP f/u w cardiology PT for dizziness Health maintenance per primary team. Akanksha Caro MD
[2017-06-09] MEDS: ATORVASTATIN CA 20 MG TABLET (FP) PO SCH (21:26)
[2017-06-10 08:48] LABS: INR 1.92 (0.82-1.09); PROTHROMBIN TIME (PATIENT) 21.7 SEC (9.98-11.88)
[2017-06-10 09:43] LABS: ANION GAP 7 (8-16); BLOOD UREA NITROGEN 22 mg/dL (7-18); CALCIUM 8.9 mg/dL (8.5-10.1); CHLORIDE 108 mmol/L (98-107); CO2 25 mmol/L (21-32); CREATININE 1.7 mg/dL (0.7-1.3); GLUCOSE,RANDOM 97 mg/dL (74-106); POTASSIUM 4.8 mmol/L (3.5-5.1); SODIUM 140 mmol/L (136-145)
[2017-06-10] MEDS: LISINOPRIL 10 MG TABLET (FP) PO SCH (09:58)
[2017-06-10] MEDS: AMIODARONE HCL 200 MG TABLET (FP) PO SCH ×2 (09:58→21:10)
[2017-06-10] MEDS: METOPROLOL SUCCINATE 50 MG TAB.SR.24H (FP) PO SCH ×2 (09:58→21:10)
--- NOTE | 2017-06-10 12:04 | PN ---
Progress Note (short form) - Note Progress Note: CC: nausea/presyncope S: no cp sob palps syncope Current Medications Generic Name Dose Route Start Last Admin Trade Name Freq PRN Reason Stop Dose Admin Acetaminophen 650 mg 06/08/17 15:23 06/09/17 06:51 Tylenol - PO 650 mg Q6H PRN Administration FEVER OR PAIN Amiodarone HCl 400 mg 06/08/17 23:30 06/10/17 09:58 Cordarone - PO 400 mg BID [facility] Administration Atorvastatin Calcium 20 mg 06/08/17 22:00 06/09/17 21:26 Lipitor - PO 20 mg HS [facility] Administration Lisinopril 10 mg 06/09/17 10:00 06/10/17 09:58 Prinivil PO 10 mg DAILY [facility] Administration Metoprolol Succinate 50 mg 06/08/17 22:00 06/10/17 09:58 Toprol Xl - PO 50 mg BID [facility] Administration Warfarin Sodium 5 mg 06/08/17 18:00 06/09/17 18:34 Coumadin - PO 5 mg DAILY@1800 [facility] Administration Vital Signs Period Temp Pulse Resp BP Sys/Palmer Pulse Ox Last 24 Hr 97.5 F-98.6 F 58-67 20-20 131-143/61-98 96 Constitutional: Yes: Well Nourished, No Distress Eyes: No: Sclera Icterus Respiratory: Yes: CTA Bilaterally. No: Accessory Muscle Use, Rales, Wheezes Gastrointestinal: Yes: Normal Bowel Sounds. No: Distention, Hepatomegaly, Palpable Mass, Tenderness Cardiovascular: Yes: Regular Rate and Rhythm JVD: No Heart Sounds: Yes: S1, S2. No: Gallop Murmur: No: Systolic Murmur, Diastolic Murmur Musculoskeletal: Yes: Other (No kyphosis) Extremities: No: Cool, Cyanosis Edema: No Integumentary: No: Jaundice Neurological: Yes: Alert, Oriented (x3) Psychiatric: No: Agitated - Other Data Labs, Other Data: CBC, BMP 06/09/17 07:30 06/10/17 08:55 ekg: sr with pvc. leftward axis. incomplete LBBB. anterior q waves. lateral twi. similar to priors. 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 no acute pathology. repeat head ct 06/09: no change. cxr; wnl cath 07/2014: non obs cad (only <30% pRCA). Assessment/Plan 56 m hx syst chf (nicm, non obs cad on cath 2007 and 2014), icd ([employer]), VF s/p icd shocks 07/2014, dvt? , hld, htn, cva/tia's, ckd who presents with nausea, dizzy. nausea/presyncope - CE's neg x 3. No acute ischemic ekg changes. - pt with sxs this AM 06/10, and tele showed only sr, no vt/vf, so likely not arrhythmia related symptoms. - neuro/vertigo work up per neuro/pmd. head ct negative. plan for carotid u/ s. Ventricular fibrillation with ICD shock on prior admit last week: - 05/29 device interrogated in ER ([employer]) --> appropriate therapy delivered x 2 for VF. Electrolytes were wnl. Ischemic work up was negative. Did not appear volume overloaded. Echo was similar to priors. - No recurrence of ICD shocks since last admit. 06/08 device interrogation --> 2 prolonged episode of VT (vs. SVT) morning of 06/08 lasting ~ 1 min and 2 1/2 minutes respectively. Prior to that --> frequent recurrent VT episodes < 20 seconds. -appears euvolemic. no evidence of acs. - 06/08 toprol uptitrated to 50 mg bid and amio 400 bid added in evening. - 06/09-06/10: con't same mgmt. If prolonged episodes of VT persist overnight, will uptitrate toprol further tomorrow. Discussed case with patient's EP doctor (Joni). Agrees with plan. No need for invasive intervention/EPS at this time. will con't to monitor. - lyte repletion prn. tele monitoring nonisch CMP: - appears euvolemic. not on diuretic as outpatient. con't megan, bb. - daily standing weights, i/o's HTN: - cont current meds CKD: - stable at baseline h/o CVA: - no new neurologic defecits. - unclear if patient is on coumadin for h/o CVA or for h/o DVT. - coumadin dosing per pmd. - con't statin. - neuro following.
--- NOTE | 2017-06-10 15:30 | PN ---
Progress Note (short form) - Note Progress Note: pt seen/ examined feels ok no complains denies cp/sob. pt on coumadin - because of cva/ and severe reduction of LV function Vital Signs Temp 97.9 F 06/10/17 14:16 Pulse 65 06/10/17 14:16 Resp 16 06/10/17 14:16 BP 127/86 06/10/17 14:16 Pulse Ox 96 06/10/17 07:00 Intake & Output 06/09/17 06/10/17 06/10/17 23:59 11:59 23:59 Intake Total 770 Balance 770 Weight 215 lb Intake: Oral 770 Other: Voiding Method Toilet Toilet Toilet Bowel Movement No Yes Weight Measurement Method Standing Scale Active Medications Acetaminophen (Tylenol -) 650 mg PO Q6H PRN PRN Reason: FEVER OR PAIN Last Admin: 06/09/17 06:51 Dose: 650 mg Amiodarone HCl (Cordarone -) 400 mg PO BID [facility] Last Admin: 06/09/17 09:47 Dose: 400 mg Atorvastatin Calcium (Lipitor -) 20 mg PO HS [facility] Last Admin: 06/08/17 21:48 Dose: 20 mg Lisinopril (Prinivil) 10 mg PO DAILY [facility] Last Admin: 06/09/17 09:47 Dose: 10 mg Metoprolol Succinate (Toprol Xl -) 50 mg PO BID [facility] Last Admin: 06/09/17 09:47 Dose: 50 mg Warfarin Sodium (Coumadin -) 5 mg PO DAILY@1800 [facility] Last Admin: 06/08/17 17:29 Dose: 5 mg INR, PTT INR 1.92 (0.82-1.09) H 06/10/17 08:20 CBC, BMP 06/09/17 07:30 06/10/17 08:55 Physical Examination Constitutional: Yes: No Distress, Calm Eyes: Yes: Conjunctiva Clear, PERRLA HENT: Yes: WNL Neck: Yes: Supple, Trachea Midline, Other (no bruie) Cardiovascular: Yes: Regular Rate and Rhythm Respiratory: Yes: CTA Bilaterally Gastrointestinal: Yes: Normal Bowel Sounds, Soft Edema: No Peripheral Pulses WNL: Yes Neurological: Yes: WNL, Alert ...Motor Strength: WNL Psychiatric: Yes: Alert Imaging - Results Chest X-ray: Report Reviewed Cat Scan: Report Reviewed EKG: Report Reviewed ct head - old cva -- no acute changes. Assessment/Plan clinically stable. continue current meds monitor inr monitor on tele discussed with pt/ nursing staff Extra coumadin today if stable- anticipate d/c in am Problem List - Problems (1) Dizziness Code(s): R42 - DIZZINESS AND GIDDINESS (2) AF (paroxysmal atrial fibrillation) Code(s): I48.0 - PAROXYSMAL ATRIAL FIBRILLATION (3) Hypertension Code(s): I10 - ESSENTIAL (PRIMARY) HYPERTENSION (4) Renal insufficiency Code(s): N28.9 - DISORDER OF KIDNEY AND URETER, UNSPECIFIED
[2017-06-10] MEDS: WARFARIN NA 5 MG TABLET (UD) PO SCH (17:47)
[2017-06-10] MEDS ORDERED: WARFARIN NA 2 MG TABLET (UD) PO ONE (18:00)
[2017-06-10] MEDS: ATORVASTATIN CA 20 MG TABLET (FP) PO SCH (21:10)
[2017-06-11 06:14] VITALS: TEMP 97.6
[2017-06-11 07:58] LABS: INR 2.27 (0.82-1.09); PROTHROMBIN TIME (PATIENT) 25.7 SEC (9.98-11.88)
--- NOTE | 2017-06-11 08:28 | DS ---
Physical Examination Vital Signs: Vital Signs Temperature 97.6 F 06/11/17 06:00 Pulse Rate 68 06/11/17 06:00 Respiratory Rate 18 06/11/17 06:00 Blood Pressure 139/84 06/11/17 06:00 O2 Sat by Pulse Oximetry (%) 98 06/10/17 21:00 Findings/Remarks: feels well no complaints No new issues Constitutional: Yes: No Distress, Calm Eyes: Yes: Conjunctiva Clear Neck: Yes: Supple Cardiovascular: Yes: Regular Rate and Rhythm Respiratory: Yes: CTA Bilaterally Gastrointestinal: Yes: Normal Bowel Sounds, Soft Edema: No Neurological: Yes: Alert Psychiatric: Yes: Alert Labs: CBC, BMP 06/09/17 07:30 06/10/17 08:55 Discharge Summary Reason For Visit: PRE- SYNCOPE, VERTIGO Current Active Problems AF (paroxysmal atrial fibrillation) (Acute) Dizziness (Acute) Pre-syncope (Acute) Vertigo (Acute) Hospital Course: Patient is a 56M with history of HTN, HLD, ckd, non-ischemic cardiomyopthy s/p defibrillator placement due to arrhythmia, TIA and afib admitted to telemetry last week (d/c on the ) for defibrillator discharge, presents to the ER today after waking up this morning with nausea, dizziness and shortness of breath. He describes the dizziness as feeling off balance "like drunk". Was discharged on amlodipine last time but stopped it two days ago due to side effect of nausea , video operator aware. Did not take his Metoprolol and Lasix this morning. Still nauseous in the ED but denies any episode of vomiting. Denies headache. Patient doesn't feel this is due to defibrillator like last time. Denies acute changes in vision, neurological deficits. Echo done on the describes sever left ventricular ejection fraction of 25- 30%. ct head -ve pt admitted to tele for observation/ neuro consult pt seen by neurology and cardiology Exam essentially benign Workup negative CT head negative 2 Patient has episode Of arrhythmia--- on monitor--started on amiodarone Patient now stable for discharge Wants to go home Will discharge home--- if cleared by cardiology today Medications reconciled Prescription sent to pharmacy patient to follow-up in office next week Patient in agreement Cardiology and neurology follow-up and advised Will follow Discussed with nursing staff also. Condition: Improved - Instructions Referrals: Sulma Acevedo MD [Primary Care Provider] - Disposition: HOME - Home Medications Comprehensive Discharge Medication List: Ambulatory Orders Lisinopril [Prinivil] 10 mg PO DAILY 07/16/13 Atorvastatin Ca [Lipitor] 20 mg PO HS 05/29/17 Acetaminophen [Tylenol .Regular Strength -] 650 mg PO Q6H PRN tablet 05/31/17 Metoprolol Succinate [Toprol XL -] 50 mg PO DAILY 30 Days #30 tab.sr.24h Amiodarone HCl [Cordarone -] 400 mg PO BID #60 tab 06/11/17 Warfarin Na [Coumadin -] 5 mg PO DAILY@1800 #0 tablet 06/11/17
[2017-06-11 09:34] VITALS: BP 145/57; PULSE 77
[2017-06-11] MEDS: AMIODARONE HCL 200 MG TABLET (FP) PO SCH (09:44)
[2017-06-11] MEDS: LISINOPRIL 10 MG TABLET (FP) PO SCH (09:44)
[2017-06-11] MEDS: METOPROLOL SUCCINATE 50 MG TAB.SR.24H (FP) PO SCH (09:44)
== END 2017-06-11 11:11 | disposition home or self-care (01) | DRG 149 ==
LOC: JER 07:38 → JERBED 10:57 → J4S 15:19 → OBSVTOIN 15:34
PROVIDERS: ADMIT Internal Medicine; ATTEND Internal Medicine
DX: R42 Dizziness and giddiness (principal); I42.9 Cardiomyopathy, unspecified; I47.2 Ventricular tachycardia; I13.0 Hypertensive heart and chronic kidney disease with heart failure and stage 1 through stage 4 chronic kidney disease, or unspecified chronic kidney disease; I50.20 Unspecified systolic (congestive) heart failure; I48.0 Paroxysmal atrial fibrillation; R55 Syncope and collapse; N18.9 Chronic kidney disease, unspecified; E78.5 Hyperlipidemia, unspecified; N28.9 Disorder of kidney and ureter, unspecified
CPT/HCPCS: 36415; 70450-TC; 71020-TC; 80048; 80053; 82550; 83735; 83880; 84443; 84484; 85025; 85027; 85610; 93005; 93010; 99285-25; G0378

== ENCOUNTER 2017-06-18 00:57 | Observation (INO) | payer OTHER ==
--- NOTE | 2017-06-18 01:26 | PDOC ---
Attending Attestation - HPI HPI: 06/18/17 01:49 The patient is a 56 year old male with history of HTN, HLD, ckd, non-ischemic cardiomyopthy s/p defibrillator placement due to arrhythmia, TIA and afib admitted last week (d/c 06/11/17) for defibrillator discharge, presents to the ER today with mild chest discomfort, dizziness and shakiness while watching college football. The patient states he did not feel his ICD fire. He states he has been more short of breath today. The patient reportedly increased his "Amnio " under the direction of Dr. Leana Perez after his last admission. He also reports increasing his metoprolol since his recent admission. Echo done on May 29 describes sever left ventricular ejection fraction of 25- 30% - Physicial Exam PE: 06/18/17 01:57 Constitutional: Awake, alert, oriented. No acute distress. Head: Normocephalic. Atraumatic Eyes: PERRL. EOMI. Conjunctivae are not pale. ENT: Mucous membranes are moist and intact. Posterior pharynx without exudates or erythema. Uvula midline. Neck: Supple. Full ROM. No lymphadenopathy. Cardiovascular: Regular rate. Regular rhythm. S1, S2 regular. Distal pulses are 2+ and symmetric. Pulmonary/Chest: (+) pacemaker to left chest. No evidence of respiratory distress. Clear to auscultation bilaterally No wheezing, rales or rhonchi. Abdominal: Soft and non-distended. There is no tenderness. No rebound, guarding or rigidity. No organomegaly. No palpable masses. Good bowel sounds. Back: No CVA tenderness. Musculoskeletal: No edema. No cyanosis. No clubbing. Full range of motion in all extremities. Nocalf tenderness. Radial/pedal pulses are intact and 2+ bilaterally Skin: Skin is warm and dry. No petechiae. No purpura. Neurological: Alert and oriented to person, place, and time. Cranial nerves II -XII are grossly intact. Normal speech. Strength is grossly symmetric. No sensory deficits. Psychiatric: Good eye contact. Normal interaction, affect and behavior. Documentation prepared by Sloane Marquez, acting as certified medical coding specialist for Terri Arango DO <Sloane Marquez - Last Filed: 06/18/17 01:59> - Resident Resident Name: Jon Murguia - ED Attending Attestation I have performed the following: I have examined & evaluated the patient, The case was reviewed & discussed with the resident, I agree w/resident's findings & plan, Exceptions are as noted - Medical Decision Making 06/18/17 01:26 I, Dr. Terri Arango, , attest that this document has been prepared under my direction and personally reviewed by me in its entirety. I further attest, that it accurately reflects all work, treatment, procedures and medical decision -making performed by me. 06/18/17 02:09 a/p: 56yo male with recent vt and icd firing and palpitations -hypertensive in the Ed -will dose metoprolol -will check labs, trop, ekg, cxr -will keep obs vs admission pending labs -will need cards consult in the AM 06/18/17 03:28 trop negative ekg nonacute cr at baseline will place in tele obs pending cards eval in am case discussed with hospitalist HOSPICE PATIENT CARE SECRETARY who accepts pt to service <Terri Arango - Last Filed: 06/18/17 03:29> Discharge Disposition - Discharge Dispostion Last Admission D/C Date: 06/11/17 Admit: Yes <Terri Arango - Last Filed: 06/18/17 03:29> - Diagnosis Palpitations - Discharge Dispostion Condition at time of disposition: Fair - Referrals Referrals: Sulma Acevedo MD [Primary Care Provider] - - Patient Instructions - Post Discharge Activity Heart Score/ECG Review - ECG Intrepretation Comment:: 06/18/17 02:11 sinus at 69 w 1st degree av block and lbbb, unchanged from prior <Terri Arango - Last Filed: 06/18/17 03:29>
[2017-06-18] MEDS ORDERED: METOPROLOL SUCCINATE 50 MG TAB.SR.24H (FP) PO ONE (01:29)
--- NOTE | 2017-06-18 01:29 | PDOC ---
History of Present Illness - General Chief Complaint: Palpitations Stated Complaint: LIGHTHEADED Time Seen by Provider: 06/18/17 01:15 History Source: Patient Exam Limitations: No Limitations - History of Present Illness Initial Comments: 06/18/17 01:28 The patient is a 56M with a PMH HTN, HLD, ckd, non-ischemic cardiomyopthy s/p defibrillator placement due to arrhythmia, TIA and A-fib (on coumadin) who presents to the ED with complaints of chest pain, shortness of breath, lightheaded, and some changes in his vision. The patient states that he was sitting down and watching TV when he felt an onset of chest pain which is sternal, and radiates to his L upper chest. He says there is associated SOB with feelings of lightheadedness and generalized weakness. He says this is the same exact presentation that he had in his previous admission. Past History - Past Medical History Allergies/Adverse Reactions: Allergies Allergy/AdvReac Type Severity Reaction Status Date / Time No Known Allergies Allergy Verified 06/18/17 01:20 Home Medications: Ambulatory Orders Lisinopril [Prinivil] 10 mg PO DAILY 07/16/13 Atorvastatin Ca [Lipitor] 20 mg PO HS 05/29/17 Acetaminophen [Tylenol .Regular Strength -] 650 mg PO Q6H PRN tablet 05/31/17 Metoprolol Succinate [Toprol XL -] 50 mg PO DAILY 30 Days #30 tab.sr.24h Amiodarone HCl [Cordarone -] 400 mg PO BID #60 tab 06/11/17 Warfarin Na [Coumadin -] 7.5 mg PO DAILY@1800 06/18/17 Cardiac Disorders: Yes (cardiomyopathy; mural thrombus, defibrilator) CVA: Yes COPD: No HTN: Yes - Surgical History Cardiac Surgery: Yes (ICD) - Immunization History Immunization Up to Date: Yes - Suicide/Smoking/Psychosocial Hx Smoking Status: No Smoking History: Never smoked Have you smoked in the past 12 months: No Number of Cigarettes Smoked Daily: 0 Information on smoking cessation initiated: No Hx Alcohol Use: No Drug/Substance Use Hx: No Substance Use Type: Alcohol Hx Substance Use Treatment: No Review of Systems - Review of Systems Able to Perform ROS?: Yes Comments:: 06/18/17 01:49 GENERAL/CONSTITUTIONAL: No fever or chills. No weakness. HEAD, EYES, EARS, NOSE AND THROAT: Positive for changes in vision. No ear pain or discharge. No sore throat. GASTROINTESTINAL: No nausea, vomiting, diarrhea, constipation, or abdominal pain. GENITOURINARY: No dysuria, frequency, hematuria, or change in urination. CARDIOVASCULAR: Positive for chest pain, palpitations, and lightheadedness. RESPIRATORY: Positive for shortness of breath. No cough, wheezing, shortness of breath, or hemoptysis. MUSCULOSKELETAL: No joint or muscle swelling or pain. No neck or back pain. SKIN: No rash or lesions. NEUROLOGIC: No headache, numbness, tingling, weakness, loss of consciousness, or change in strength/sensation. ENDOCRINE: No increased thirst. No abnormal weight change. HEMATOLOGIC/LYMPHATIC: No anemia, easy bleeding, or history of blood clots. ALLERGIC/IMMUNOLOGIC: No hives or skin allergy. Is the patient limited Slovak proficient: No *Physical Exam - Vital Signs Last Vital Signs Temp Pulse Resp BP Pulse Ox 98.6 F 85 14 126/97 96 06/18/17 01:03 06/18/17 01:03 06/18/17 01:03 06/18/17 01:03 06/18/17 01:03 - Physical Exam Comments: 06/18/17 01:55 GENERAL: Well developed, well nourished. Awake and alert. No acute distress. HEENT: Normocephalic, atraumatic. Hearing grossly normal. Moist mucous membranes. PERRLA, EOMI. No conjunctival pallor. Sclera are non-icteric. Oropharynx is clear. NECK: Supple. Full ROM. No JVD. CARDIOVASCULAR: Irregular rate and rhythm, not tachycardic. No murmurs, rubs, or gallops. PULMONARY: No evidence of respiratory distress. Lungs clear to auscultation bilaterally. No wheezing, rales or rhonchi. ABDOMINAL: Soft. Non-tender. Non-distended. No rebound or guarding. GENITOURINARY: No CVA tenderness bilaterally. MUSCULOSKELETAL: Normal range of motion at all joints. No bony deformities or tenderness. EXTREMITIES: No cyanosis. No clubbing. No edema. No calf tenderness. SKIN: Warm and dry. Normal capillary refill. No rashes. No jaundice. NEUROLOGICAL: Alert, awake, appropriate. Cranial nerves 2-12 intact. Normal speech. Gait is normal without ataxia. PSYCHIATRIC: Cooperative. Good eye contact. Appropriate mood and affect. Heart Score/ECG Review #1 General ECG Interpretation: Sinus Rhythm, Normal Rate, Normal Intervals, No acute ischemic changes Compared to previous ECG there are: Changes noted (Incomplete LBBB morphology maintained. R waves no longer inverted in V4 and V5.) ED Treatment Course - LABORATORY CBC & Chemistry Diagram: 06/18/17 01:30 06/18/17 01:30 Medical Decision Making - Medical Decision Making 06/18/17 01:58 The patient is a 56M with an extensive PMH who presents to the ED with complaints of CP, SOB, weakness, lightheadedness. I am concerned for a cardio cause of his CP, so I will evaluate with cardiac profile and EKG. CXR ordered to look for pulmonary cause of his presentation. He recently started taking 200 mg amio BID starting last week but says the symptoms that he has are the same as his prior presentation 2 weeks ago. *DC/Admit/Observation/Transfer - Referrals Referrals: Sulma Acevedo MD [Primary Care Provider] - - Patient Instructions - Post Discharge Activity
[2017-06-18] MEDS ORDERED: METOPROLOL SUCCINATE 50 MG TAB.SR.24H (FP) ONE ×2 (01:40→09:37)
[2017-06-18 01:51] LABS: BASO % 1.1 % (0-2.0); EOS % 2.3 % (0-4.5); HEMATOCRIT 43.8 % (35.4-49); HEMOGLOBIN 13.9 GM/dL (11.7-16.9); LYMPH % 25.9 % (8-40); MCH 28.6 pg (25.7-33.7); MCHC 31.8 g/dl (32.0-35.9); MEAN CELL VOLUME 89.9 fl (80-96); MONO % 10.4 % (3.8-10.2); NEUT % 60.3 % (42.8-82.8); PLATELET COUNT 227 K/MM3 (134-434); RBC 4.87 M/mm3 (4.00-5.60); RDW 13.3 % (11.9-15.9); WHITE BLOOD COUNT 7.5 K/mm3 (4.0-10.0)
[2017-06-18 02:05] LABS: INR 2.87 (0.82-1.09); PROTHROMBIN TIME (PATIENT) 32.4 SEC (9.98-11.88)
[2017-06-18 02:08] LABS: ACTIVATED PTT 45.5 SECONDS (26.9-34.4)
[2017-06-18 02:15] LABS: ALBUMIN 3.6 g/dl (3.4-5.0); ANION GAP 9 (8-16); BILIRUBIN,TOTAL 0.4 mg/dL (0.2-1.0); BLOOD UREA NITROGEN 23 mg/dL (7-18); CALCIUM 8.3 mg/dL (8.5-10.1); CHLORIDE 107 mmol/L (98-107); CO2 25 mmol/L (21-32); CREATININE 1.7 mg/dL (0.7-1.3); GLUCOSE,RANDOM 104 mg/dL (74-106); POTASSIUM 4.2 mmol/L (3.5-5.1); SGOT/AST 27 U/L (15-37); SGPT/ALT 38 U/L (12-78); SODIUM 141 mmol/L (136-145); TOT PROT 6.4 g/dl (6.4-8.2)
[2017-06-18 02:17] LABS: ALK PHOS 89 U/L (45-117)
--- NOTE | 2017-06-18 03:35 | HP ---
Admitting History and Physical - Primary Care Physician PCP: Sulma Acevedo - Admission Chief Complaint: Palpitations, Chest Pain, SOB History of Present Illness: This is a 56 y/o man with significant medical history of HTN, HLD, CKD, non ischemic cardiomyopathy, s/p defibrillator, TIA, Afib (on Coumadin). Who presents to the ED with palpitations, chest pain and increased SOB x1 day. Patient was recently d/c 06/11/17 for Palpitations, Recent admission 05/29/17 for Defibrillator discharge. Patient reports while watching a [employer] football game , he began to have chest pain, palpitations which were similar to his last admission. He reports increased SOB as well. Patient denies fever, chills, cough , AP, N/V/D, constipation, dysuria. History Source: Patient, Medical Record Limitations to Obtaining History: No Limitations - Past Medical History [employer]: Yes: TIA Cardiovascular: Yes: AFIB, HTN, Hyperlipdemia, Other (nonischemic cardiomyopathy --status post AICD) Renal/: Yes: Renal Inusuff (CKD) - Past Surgical History Past Surgical History: Yes: AICD Additional Past Surgical History: R- Achilles Repair - Smoking History Smoking history: Never smoked Have you smoked in the past 12 months: No Aproximately how many cigarettes per day: 0 - Alcohol/Substance Use Hx Alcohol Use: No Home Medications - Allergies Allergies/Adverse Reactions: Allergies Allergy/AdvReac Type Severity Reaction Status Date / Time No Known Allergies Allergy Verified 06/18/17 01:20 - Home Medications Home Medications: Ambulatory Orders Lisinopril [Prinivil] 10 mg PO DAILY 07/16/13 Atorvastatin Ca [Lipitor] 20 mg PO HS 05/29/17 Acetaminophen [Tylenol .Regular Strength -] 650 mg PO Q6H PRN tablet 05/31/17 Metoprolol Succinate [Toprol XL -] 50 mg PO DAILY 30 Days #30 tab.sr.24h Amiodarone HCl [Cordarone -] 400 mg PO BID #60 tab 06/11/17 Warfarin Na [Coumadin -] 7.5 mg PO DAILY@1800 06/18/17 Review of Systems - Review of Systems Constitutional: reports: No Symptoms Eyes: reports: No Symptoms HENT: reports: No Symptoms Neck: reports: No Symptoms Cardiovascular: reports: Chest Pain, Palpitations, Shortness of Breath Respiratory: reports: SOB, SOB on Exertion Gastrointestinal: reports: No Symptoms Genitourinary: reports: No Symptoms Breasts: reports: No Symptoms Reported Musculoskeletal: reports: No Symptoms Integumentary: reports: No Symptoms Neurological: reports: Dizziness Endocrine: reports: No Symptoms Hematology/Lymphatic: reports: No Symptoms Psychiatric: reports: No Symptoms Physical Examination Vital Signs: Vital Signs Temperature 98.6 F 06/18/17 01:03 Pulse Rate 69 06/18/17 02:09 Respiratory Rate 21 06/18/17 02:09 Blood Pressure 136/85 06/18/17 02:09 O2 Sat by Pulse Oximetry (%) 99 06/18/17 02:09 Constitutional: Yes: Well Nourished, No Distress, Calm, Obese Eyes: Yes: WNL, Conjunctiva Clear, EOM Intact, PERRL HENT: Yes: WNL, Atraumatic, Normocephalic, Other (poor dentition) Neck: Yes: WNL, Supple, Trachea Midline Cardiovascular: Yes: WNL, Regular Rate and Rhythm Respiratory: Yes: WNL, Regular, CTA Bilaterally Gastrointestinal: Yes: WNL, Normal Bowel Sounds, Soft ...Rectal Exam: Yes: Deferred Renal/: Yes: WNL Breast(s): Yes: WNL Musculoskeletal: Yes: WNL Extremities: Yes: WNL Edema: No Peripheral Pulses WNL: Yes Integumentary: Yes: WNL Neurological: Yes: WNL, Alert, Oriented, Cran Nerves II-XII Intact ...Motor Strength: WNL Psychiatric: Yes: WNL, Alert, Oriented Labs: CBC, BMP 06/18/17 01:30 06/18/17 01:30 Laboratory Results - last 24 hr 06/18/17 06/18/17 06/18/17 01:30 01:30 01:30 WBC 7.5 RBC 4.87 Hgb 13.9 Hct 43.8 MCV 89.9 MCH 28.6 MCHC 31.8 L RDW 13.3 Plt Count 227 D MPV 10.0 Neutrophils % 60.3 Lymphocytes % 25.9 Monocytes % 10.4 H Eosinophils % 2.3 Basophils % 1.1 PT with INR 32.40 H INR 2.87 H PTT (Actin FS) 45.5 H D Sodium 141 Potassium 4.2 Chloride 107 Carbon Dioxide 25 Anion Gap 9 BUN 23 H Creatinine 1.7 H Creat Clearance w eGFR 41.75 Random Glucose 104 Calcium 8.3 L Total Bilirubin 0.4 D AST 27 ALT 38 Alkaline Phosphatase 89 Creatine Kinase 58 Troponin I 0.02 D Total Protein 6.4 Albumin 3.6 Intake & Output 06/15/17 06/16/17 06/17/17 06/18/17 23:59 23:59 23:59 23:59 Weight 97.069 kg Current Medications Generic Name Dose Route Start Last Admin Trade Name Freq PRN Reason Stop Dose Admin Amiodarone HCl 400 mg 06/18/17 10:00 Cordarone - PO BID [facility] Atorvastatin Calcium 20 mg 06/18/17 22:00 Lipitor - PO HS [facility] Lisinopril 10 mg 06/18/17 10:00 Prinivil PO DAILY [facility] Metoprolol Succinate 50 mg 06/18/17 10:00 Toprol Xl - PO DAILY [facility] Warfarin Sodium 7.5 mg 06/18/17 18:00 Coumadin - PO DAILY@1800 [facility] - Results Chest X-ray: Pending EKG: Image Reviewed Problem List - Problems (1) Palpitations Assessment/Plan: - Likely possible to medication vs PE vs Anxiety - Continue cardiac monitoring - EKG reviewed, NSR with L- BBB, 1st degree AV block no change from prior study - Wells Score 1.5 - Continue Metoprolol, Amiodarone - Appreciate Cardiology Consult Code(s): R00.2 - PALPITATIONS (2) Chest pain Assessment/Plan: - r/o ACS - HEART Score 4 - EKG reviewed - Chest xray-pending - Continue Asa, BB, Lipitor - Serial Enzymes - Appreciate Cardiology consult - Continue architecture analyst - Echo 05/2017 lvef 25-30, global hk, nlrv, mild ar, rvsp 30-40 - Cath 07/2014 non obs cad (only < 30% pRCA) Code(s): R07.9 - CHEST PAIN, UNSPECIFIED (3) Dyspnea Assessment/Plan: - O2 - Chest Xray pending r/o HF - Monitor vitals Code(s): R06.00 - DYSPNEA, UNSPECIFIED (4) Exertional shortness of breath Assessment/Plan: - See Above Code(s): R06.02 - SHORTNESS OF BREATH (5) AF (paroxysmal atrial fibrillation) Assessment/Plan: - EKG- SR 69bpm with 1st degree AV Block - Continue Metoprolol, Coumadin - [id number] Score 3 Code(s): I48.0 - PAROXYSMAL ATRIAL FIBRILLATION (6) Dizziness Assessment/Plan: - Likely secondary to Arrhythmia vs Vertigo - Monitor CBC, BMP - Monitor vitals - Head Ct 06/08/17- no ICH, mass or lesion. - Consider repeat head CT if condition worsens - Neuro checks - Fall precautions Code(s): R42 - DIZZINESS AND GIDDINESS (7) Hypertension Assessment/Plan: - Not controlled - Given Metoprolol in ED - Continue home meds - Monitor renal function Code(s): I10 - ESSENTIAL (PRIMARY) HYPERTENSION (8) Renal insufficiency Assessment/Plan: - 1.7 at baseline - Avoid nephrotoxins Code(s): N28.9 - DISORDER OF KIDNEY AND URETER, UNSPECIFIED (9) DVT prophylaxis Assessment/Plan: - OOB - SCDs - Continue Coumadin Code(s): FOI1662 - Assessment/Plan 56 y/o man HTN, HLD, CKD, non-ischemic cardiomyopathy, s/p defibrillator placed in Tele Observation for Palpitations, Chest Pain r/o ACS. F/E/N - PO Fluids - Replete lytes - Low Na, Low Cholesterol Diet Code Status: Full Code Dispo: Obs Visit type - Emergency Visit Emergency Visit: Yes ED Registration Date: 06/17/17 Care time: The patient presented to the Emergency Department on the above date and was hospitalized for further evaluation of their emergent condition. - New Patient This patient is new to me today: Yes Date on this admission: 06/18/17 - Critical Care Critical Care patient: No
[2017-06-18 06:51] LABS: BASO % 0.9 % (0-2.0); EOS % 1.4 % (0-4.5); HEMATOCRIT 41.6 % (35.4-49); HEMOGLOBIN 13.4 GM/dL (11.7-16.9); LYMPH % 26.9 % (8-40); MCHC 32.3 g/dl (32.0-35.9); MEAN CELL VOLUME 89.9 fl (80-96); MONO % 9.8 % (3.8-10.2); PLATELET COUNT 226 K/MM3 (134-434); RBC 4.63 M/mm3 (4.00-5.60); RDW 13.2 % (11.9-15.9); WHITE BLOOD COUNT 8.8 K/mm3 (4.0-10.0)
[2017-06-18 07:21] LABS: ANION GAP 7 (8-16); BLOOD UREA NITROGEN 21 mg/dL (7-18); CALCIUM 8.9 mg/dL (8.5-10.1); CHLORIDE 108 mmol/L (98-107); CO2 26 mmol/L (21-32); GLUCOSE,RANDOM 95 mg/dL (74-106); MAGNESIUM 2.1 mg/dL (1.8-2.4); POTASSIUM 4.5 mmol/L (3.5-5.1); SODIUM 141 mmol/L (136-145)
[2017-06-18 07:27] LABS: CREATININE 1.5 mg/dL (0.7-1.3); PHOSPHOROUS 3.1 mg/dL (2.5-4.9)
--- NOTE | 2017-06-18 09:35 | PN ---
Progress Note (short form) - Note Progress Note: patient seen and examined in emergency room Chart reviewed Patient well known to me. Agree with current management Will resume care of the patient from hospitalist. Discussed with nursing staff also. Vital Signs Temp 98.6 F 06/18/17 01:03 Pulse 64 06/18/17 08:45 Resp 16 06/18/17 06:56 BP 120/84 06/18/17 06:56 Pulse Ox 100 06/18/17 08:45 Intake & Output 06/17/17 06/17/17 06/18/17 11:59 23:59 11:59 Weight 214 lb Other: Voiding Method Toilet Height 6 ft Body Mass Index (BMI) 29.0 Weight Measurement Method Est/Stated by Patient Active Medications Amiodarone HCl (Cordarone -) 400 mg PO BID [facility] Atorvastatin Calcium (Lipitor -) 20 mg PO HS [facility] Lisinopril (Prinivil) 10 mg PO DAILY [facility] Metoprolol Succinate (Toprol Xl -) 50 mg PO DAILY [facility] Warfarin Sodium (Coumadin -) 7.5 mg PO DAILY@1800 [facility] CBC, BMP 06/18/17 06:34 06/18/17 06:33
[2017-06-18] MEDS ORDERED: ONDANSETRON *ODT* 4 MG TABLET ONE (09:38)
[2017-06-18] MEDS ORDERED: AMIODARONE HCL 200 MG TABLET (FP) ONE (09:38)
[2017-06-18] MEDS ORDERED: LISINOPRIL 5 MG TABLET (FP) ONE (09:38)
[2017-06-18] MEDS: LISINOPRIL 10 MG TABLET (FP) PO SCH (09:39)
[2017-06-18] MEDS ORDERED: AMIODARONE HCL 200 MG TABLET (FP) PO SCH (10:00)
[2017-06-18] MEDS ORDERED: METOPROLOL SUCCINATE 50 MG TAB.SR.24H (FP) PO SCH (10:00)
--- NOTE | 2017-06-18 10:52 | CON.CARD ---
Cardiology Consult (text) - Consultation Consultation Note: CC: presyncope/sob History of Present Illness: 56 m hx syst chf (nicm, non obs cad on cath 2007 and 2014), icd ([employer]), VF s/p icd shocks 07/2014 and this month 05/2017, dvt? , hld, htn, cva/tia's, ckd who p/w presyncope. Was watching football when he had recurrence of sensation of dizziness/unstable gait with brief nausea, diaphoresis and sob lasting a few seconds. Dizziness subsequently persisted for the rest of the day. Intermittent worsening and intermittent episodes of sob like he can't get enough air in. Sob not worse with exertion or position. Denies shock from ICD. Recent admit for similar sx's. Had increased VT/nsvt on tele. amiodarone started on toprol uptitrated. Endorses adherence to new regimen. no palps, orthopnea, pnd, le edema, bleeding, cp. pmhx/Pshx: per hpi social hx: Never smoked family hx: Denies (h/o CAD or chf) ros: per hpi. no f/c/s, vomiting, diarrhea, cough, congestion, visual disturbances, rashes, h/a Ambulatory Orders Lisinopril [Prinivil] 10 mg PO DAILY 07/16/13 Atorvastatin Ca [Lipitor] 20 mg PO HS 05/29/17 Acetaminophen [Tylenol .Regular Strength -] 650 mg PO Q6H PRN tablet 05/31/17 Metoprolol Succinate [Toprol XL -] 50 mg PO DAILY 30 Days #30 tab.sr.24h Amiodarone HCl [Cordarone -] 400 mg PO BID #60 tab 06/11/17 Warfarin Na [Coumadin -] 7.5 mg PO DAILY@1800 06/18/17 Current Medications Amiodarone HCl (Cordarone -) 400 mg PO BID [facility] Last Admin: 06/18/17 09:39 Dose: 400 mg Atorvastatin Calcium (Lipitor -) 20 mg PO HS [facility] Lisinopril (Prinivil) 10 mg PO DAILY [facility] Last Admin: 06/18/17 09:39 Dose: 10 mg Metoprolol Succinate (Toprol Xl -) 50 mg PO DAILY [facility] Last Admin: 06/18/17 09:39 Dose: 50 mg Warfarin Sodium (Coumadin -) 7.5 mg PO DAILY@1800 [facility] Vital Signs - 24 hr 06/18/17 06/18/17 06/18/17 01:03 01:40 02:09 Temperature 98.6 F Pulse Rate 85 Pulse Rate [ 70 69 Apical] Respiratory 14 21 Rate Blood Pressure 126/97 Blood Pressure 154/103 136/85 [Left Arm] O2 Sat by Pulse 96 99 Oximetry (%) 06/18/17 06/18/17 06/18/17 06:56 08:45 09:48 Temperature 98.0 F Pulse Rate 64 Pulse Rate [ 52 L 57 L Apical] Respiratory 16 18 Rate Blood Pressure Blood Pressure 120/84 136/90 [Left Arm] O2 Sat by Pulse 97 100 95 Oximetry (%) Intake & Output 06/16/17 06/17/17 06/18/17 06/19/17 07:59 07:59 07:59 07:59 Weight 214 lb Constitutional: Yes: Well Nourished, No Distress Eyes: No: Sclera Icterus HENT: No: Nasal Congestion Neck: No: Decreased ROM Respiratory: Yes: CTA Bilaterally. No: Accessory Muscle Use, Rales, Wheezes Gastrointestinal: Yes: Normal Bowel Sounds. No: Distention, Hepatomegaly, Palpable Mass, Tenderness Cardiovascular: Yes: Regular Rate and Rhythm JVD: No Carotid Bruit: No PMI: Non-Displaced Heart Sounds: Yes: S1, S2. No: Gallop Murmur: No: Systolic Murmur, Diastolic Murmur Musculoskeletal: Yes: Other (No kyphosis) Extremities: No: Cool, Cyanosis Edema: No Peripheral Pulses: 2+ Left Carotid, 2+ Right Carotid, 2+ Left Doralis Pedis, 2+ Right Dorsalis Pedis Integumentary: No: Jaundice Neurological: Yes: Alert, Oriented (x3) Psychiatric: No: Agitated - Other Data Labs, Other Data: CBC, BMP 06/18/17 06:34 06/18/17 06:33 Laboratory Tests 06/18/17 06/18/17 06/18/17 01:30 01:30 06:33 INR 2.87 H Magnesium 2.1 Total Bilirubin 0.4 D AST 27 ALT 38 Alkaline Phosphatase 89 Troponin I 0.02 D 0.02 Albumin 3.6 ekg: sr. av delay. leftward axis. ivcb. anterior q waves. lateral twi. similar to priors. 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 no acute pathology. cxr; wnl cath 07/2014: non obs cad (only <30% pRCA). 56 m hx syst chf (nicm, non obs cad on cath 2007 and 2014), icd ([employer]), VF s/p icd shocks 07/2014 and this month 05/2017, dvt? , hld, htn, cva/tia's, ckd who p/w presyncope/sob presyncope - CE's neg x 2. No acute ischemic ekg changes. - on recent admit last week had frequent nsvt/vt. Con't current regimen for suppression. Monitor tele for need to uptitrate toprol regimen. - neuro/vertigo work up per pmd. Ventricular fibrillation with ICD shock on prior admit last week: - 05/29 device interrogated in ER ([employer]) --> appropriate therapy delivered x 2 for VF. Electrolytes were wnl. Ischemic work up was negative. Did not appear volume overloaded. Echo was similar to priors. - No recurrence of ICD shocks since last admit. 06/08 device interrogation --> 2 prolonged episode of VT (vs. SVT) morning of 06/08 lasting ~ 1 min and 2 1/2 minutes respectively. Prior to that --> frequent recurrent VT episodes < 20 seconds. -appears euvolemic. no evidence of acs. - discussed case with EP on last admit. No need for invasive intervention/ EPS at that time. - lyte repletion prn. tele monitoring nonisch CMP: - appears euvolemic. not on diuretic as outpatient. con't megan, bb. - daily standing weights, i/o's HTN: - cont current meds CKD: - stable at baseline h/o CVA: - no new neurologic defecits. - unclear if patient is on coumadin for h/o CVA or for h/o DVT. - coumadin dosing per pmd. - con't statin.
--- NOTE | 2017-06-18 14:45 | EKG ---
Test Reason : Blood Pressure : / mmHG Vent. Rate : 069 BPM Atrial Rate : 069 BPM P-R Int : 212 ms QRS Dur : 130 ms QT Int : 428 ms P-R-T Axes : 036 -21 054 degrees QTc Int : 458 ms SINUS RHYTHM WITH 1ST DEGREE A-V BLOCK POSSIBLE LEFT ATRIAL ENLARGEMENT NON-SPECIFIC INTRA-VENTRICULAR CONDUCTION BLOCK NONSPECIFIC T WAVE ABNORMALITY ABNORMAL ECG Confirmed by Eleuterio Nicholson MD ([id number]) on 06/18/2017 2:45:14 PM Referred By: Confirmed By:Eleuterio Nicholson MD
[2017-06-18] MEDS ORDERED: WARFARIN NA 7.5 MG TABLET (FP) PO SCH (18:00)
[2017-06-18] MEDS ORDERED: ATORVASTATIN CA 20 MG TABLET (FP) PO SCH (22:00)
[2017-06-18] MEDS: AMIODARONE HCL 200 MG TABLET (FP) PO SCH (23:15)
[2017-06-18 23:37] VITALS: BMI 29.9
[2017-06-19 06:35] VITALS: TEMP 98.2
[2017-06-19 08:46] LABS: INR 2.9 (0.82-1.09); PROTHROMBIN TIME (PATIENT) 32.8 SEC (9.98-11.88)
[2017-06-19] MEDS: LISINOPRIL 10 MG TABLET (FP) PO SCH (09:58)
[2017-06-19] MEDS: AMIODARONE HCL 200 MG TABLET (FP) PO SCH (09:58)
--- NOTE | 2017-06-19 09:59 | PN ---
Progress Note (short form) - Note Progress Note: patient seen and examined Feels little better still feels weak denies chest pain as such No shortness of breath denies headache INR, PTT INR 2.90 (0.82-1.09) H 06/19/17 07:09 Vital Signs Temp 98.2 F 06/19/17 06:00 Pulse 62 06/19/17 06:00 Resp 20 06/19/17 06:00 BP 117/80 06/19/17 06:00 Pulse Ox 97 06/19/17 00:00 Intake & Output 06/18/17 06/18/17 06/19/17 11:59 23:59 11:59 Intake Total 360 Balance 360 Weight 214 lb 220 lb 6.4 oz 218 lb 9.6 oz Intake: Oral 360 Other: Voiding Method Toilet Toilet Toilet # Unmeasured Voids Void 1 Height 6 ft 6 ft Body Mass Index (BMI) 29.0 29.9 Weight Measurement Method Standing Scale Standing Scale Weight Measurement Method Est/Stated by Patient Active Medications Amiodarone HCl (Cordarone -) 200 mg PO BID [facility] Last Admin: 06/19/17 09:58 Dose: 200 mg Atorvastatin Calcium (Lipitor -) 20 mg PO HS [facility] Last Admin: 06/18/17 23:15 Dose: 20 mg Lisinopril (Prinivil) 10 mg PO DAILY [facility] Last Admin: 06/19/17 09:58 Dose: 10 mg Metoprolol Succinate (Toprol Xl -) 50 mg PO BID [facility] Last Admin: 06/19/17 09:58 Dose: 50 mg Warfarin Sodium (Coumadin -) 7.5 mg PO DAILY@1800 [facility] Last Admin: 06/18/17 18:38 Dose: 7.5 mg CBC, BMP 06/18/17 06:34 06/18/17 06:33 physical exam Awake and comfortable neck supple Lungs clear CVS--heart sounds regular Abdomen--soft Extremities--no edema Neuro--- alert and oriented 3 Assessment and plan Clinically stable still feels weak and little dizzy Monitor on the telemetry today INR therapeutic cardiology follow-ups noted I had discussed with Dr. Gutierrez--- last visit--- why patient is on Coumadin They still keep writing--- do not know !! Will discuss again. Problem List - Problems (1) Chest pain Code(s): R07.9 - CHEST PAIN, UNSPECIFIED (2) Palpitations Code(s): R00.2 - PALPITATIONS (3) Dizziness Code(s): R42 - DIZZINESS AND GIDDINESS
[2017-06-19] MEDS ORDERED: METOPROLOL SUCCINATE 50 MG TAB.SR.24H (FP) PO SCH (10:00)
[2017-06-19 10:54] VITALS: BP 112/73; PULSE 72
--- NOTE | 2017-06-19 10:56 | PN ---
Progress Note (short form) - Note Progress Note: s: feeling well. no sob palps dizzy cp o: Vital Signs Period Temp Pulse Resp BP Sys/Palmer Pulse Ox Last 24 Hr 97.7 F-98.4 F 56-64 16-20 117-144/50-93 95-98 Constitutional: Yes: Well Nourished, No Distress Eyes: No: Sclera Icterus Respiratory: Yes: CTA Bilaterally. No: Accessory Muscle Use, Rales, Wheezes Gastrointestinal: Yes: Normal Bowel Sounds. No: Distention, Hepatomegaly, Palpable Mass, Tenderness Cardiovascular: Yes: Regular Rate and Rhythm JVD: No Heart Sounds: Yes: S1, S2. No: Gallop Murmur: No: Systolic Murmur, Diastolic Murmur Extremities: No: Cool, Cyanosis Edema: No Integumentary: No: Jaundice Neurological: Yes: Alert, Oriented (x3) Psychiatric: No: Agitated Current Medications Generic Name Dose Route Start Last Admin Trade Name Freq PRN Reason Stop Dose Admin Amiodarone HCl 200 mg 06/18/17 22:00 06/19/17 09:58 Cordarone - PO 200 mg BID MARIANA Administration Atorvastatin Calcium 20 mg 06/18/17 22:00 06/18/17 23:15 Lipitor - PO 20 mg HS MARIANA Administration Lisinopril 10 mg 06/18/17 10:00 06/19/17 09:58 Prinivil PO 10 mg DAILY MARIANA Administration Metoprolol Succinate 50 mg 06/19/17 10:00 06/19/17 09:58 Toprol Xl - PO 50 mg BID MARIANA Administration Warfarin Sodium 7.5 mg 06/18/17 18:00 06/18/17 18:38 Coumadin - PO 7.5 mg DAILY@1800 MARIANA Administration CBC, BMP 06/18/17 06:34 06/18/17 06:33 ekg: sr. av delay. leftward axis. ivcb. anterior q waves. lateral twi. similar to priors. tele: SR, few beats nsvt echo 05/2017: lvef 25-30, global hk, nl rv, mild ar, rvsp 30-40 echo 08/2015: mod lve, mod-sev dec lvef, global hk, nl rv, mild AR, mild ao root dil 4.[address]: old occipital, parietal, and cerebellar infarcts. no acute pathology. cxr; wnl cath 07/2014: non obs cad (only <30% pRCA). a/p: 56 m hx syst chf (nicm, non obs cad on cath 2007 and 2014), icd ([place]), VF s/p icd shocks 07/2014 and this month 05/2017, dvt? , hld, htn, cva/tia's, ckd who p/w presyncope/sob presyncope - CE's neg. No acute ischemic ekg changes. no signs chf/acs. - on recent admit last week had frequent nsvt/vt. Con't current regimen for suppression. Currently only minimal nsvt on tele. Ventricular fibrillation with ICD shock on prior admit last week: - 05/29 device interrogated in ER ([facility]) --> appropriate therapy delivered x 2 for VF. Electrolytes were wnl. Ischemic work up was negative. Did not appear volume overloaded. Echo was similar to priors. - No recurrence of ICD shocks since last admit. 06/08 device interrogation --> 2 prolonged episode of VT (vs. SVT) morning of 06/08 lasting ~ 1 min and 2 1/2 minutes respectively. Prior to that --> frequent recurrent VT episodes < 20 seconds. -appears euvolemic. no evidence of acs. - discussed case with EP MD on last admit. No need for invasive intervention/ EPS at that time. - cont amio 200 bid for total of 7 days then change to 200qd, pt instructed to change to qd this saturday. nonisch CMP: - appears euvolemic. not on diuretic as outpatient. con't megan, bb. HTN: - cont current meds CKD: - stable at baseline h/o CVA: - no new neurologic defecits. - unclear if patient is on coumadin for h/o CVA or for h/o DVT. - coumadin dosing per pmd. - con't statin. cardiac armenta stable for dc, will f/u with EP as outpt
--- NOTE | 2017-06-19 12:02 | DS ---
Physical Examination Vital Signs: Vital Signs Temperature 98.2 F 06/19/17 10:00 Pulse Rate 72 06/19/17 10:00 Respiratory Rate 20 06/19/17 10:00 Blood Pressure 112/73 06/19/17 10:00 O2 Sat by Pulse Oximetry (%) 98 06/19/17 08:00 Findings/Remarks: see today's progress note Labs: CBC, BMP 06/18/17 06:34 06/18/17 06:33 Discharge Summary Reason For Visit: PALPITATIONS Current Active Problems Chest pain (Acute) DVT prophylaxis (Acute) Dyspnea (Acute) Palpitations (Acute) Hospital Course: nursing staff reports to me that patient now feels much better and wants to go home Also cleared by cardiology for discharge Will discharge home today when Medications reconciled Patient follow in office next week Condition: Fair - Instructions Referrals: Sulma Acevedo MD [Primary Care Provider] - Disposition: HOME - Home Medications Comprehensive Discharge Medication List: Ambulatory Orders Lisinopril [Prinivil] 10 mg PO DAILY 07/16/13 Atorvastatin Ca [Lipitor] 20 mg PO HS 05/29/17 Acetaminophen [Tylenol .Regular Strength -] 650 mg PO Q6H PRN tablet 05/31/17 Metoprolol Succinate [Toprol XL -] 50 mg PO DAILY 30 Days #30 tab.sr.24h Amiodarone HCl [Cordarone -] 400 mg PO BID #60 tab 06/11/17 Warfarin Na [Coumadin -] 7.5 mg PO DAILY@1800 06/18/17 Metoprolol Succinate [Toprol XL -] 50 mg PO BID tab.sr.24h 06/19/17
--- NOTE | 2017-06-25 10:53 | EKG ---
Test Reason : Blood Pressure : / mmHG Vent. Rate : 067 BPM Atrial Rate : 067 BPM P-R Int : 238 ms QRS Dur : 098 ms QT Int : 400 ms P-R-T Axes : 046 -11 -08 degrees QTc Int : 422 ms SINUS RHYTHM WITH 1ST DEGREE A-V BLOCK ANTEROSEPTAL INFARCT , AGE UNDETERMINED ABNORMAL ECG WHEN COMPARED WITH ECG OF 18-JUN-2017 01:30, QRS DURATION HAS DECREASED ANTEROSEPTAL INFARCT IS NOW PRESENT T WAVE INVERSION LESS EVIDENT IN LATERAL LEADS Confirmed by MD Leopoldo, Patrice ([id number]) on 06/25/2017 10:52:51 AM Referred By: Confirmed By:Patrice Mina MD
== END 2017-06-19 12:11 | disposition home or self-care (01) ==
LOC: JER 00:57 → JERBED 04:12 → J4W 20:56
PROVIDERS: ADMIT Internal Medicine; ATTEND Internal Medicine
DX: R00.2 Palpitations (principal); R07.9 Chest pain, unspecified; R06.00 Dyspnea, unspecified; R06.02 Shortness of breath; I48.0 Paroxysmal atrial fibrillation; I44.0 Atrioventricular block, first degree; I42.8 Other cardiomyopathies; I12.9 Hypertensive chronic kidney disease with stage 1 through stage 4 chronic kidney disease, or unspecified chronic kidney disease; N18.9 Chronic kidney disease, unspecified; E78.5 Hyperlipidemia, unspecified; R42 Dizziness and giddiness; Z79.01 Long term (current) use of anticoagulants; Z95.810 Presence of automatic (implantable) cardiac defibrillator; Z86.73 Personal history of transient ischemic attack (TIA), and cerebral infarction without residual deficits
CPT/HCPCS: 36415; 71046-TC; 80048; 80053; 82550; 83735; 84100; 84484; 85025; 85610; 85730; 93005; 93010; 99285-25; G0378

== ENCOUNTER 2018-09-10 11:40 | Emergency (ER) | payer OTHER ==
[2018-09-10 11:50] VITALS: BMI 18.7
--- NOTE | 2018-09-10 12:20 | PDOC ---
History of Present Illness - General Chief Complaint: Abscess Boil Stated Complaint: RECTAL BLEEDING Time Seen by Provider: 09/10/18 12:12 History Source: Patient Exam Limitations: No Limitations - History of Present Illness Initial Comments: 09/10/18 12:18 Pt is a 58yo M with PMH of Afib (on warfarin), Cardiomyopathy s/p AICD HTN, HLD presenting to ED for a cyst underneath the L buttock. Pt states he noticed the cyst 2 days ago and says it started to drain blood today. He has never had a cyst before. Endorses pain and chills. Denies rectal bleeding, bloody stools, abdominal pain, pain with urination, fever, chest pain, sob, n/v/d. PMD: Curtis PMH: see hpi PSH: ICD placement Meds: warfarin, amiodarone, metoprolol, atorvastatin, lisinopril Allergies: nkda Past History - Past Medical History Allergies/Adverse Reactions: Allergies Allergy/AdvReac Type Severity Reaction Status Date / Time No Known Allergies Allergy Verified 09/10/18 11:46 Home Medications: Ambulatory Orders Lisinopril [Prinivil] 10 mg PO DAILY 07/16/13 Atorvastatin Ca [Lipitor] 20 mg PO HS 05/29/17 Acetaminophen [Tylenol .Regular Strength -] 650 mg PO Q6H PRN tablet 05/31/17 Metoprolol Succinate [Toprol XL -] 50 mg PO DAILY 30 Days #30 tab.sr.24h Amiodarone HCl [Cordarone -] 400 mg PO BID #60 tab 06/11/17 Warfarin Na [Coumadin -] 5 mg PO DAILY@1800 06/18/17 Cephalexin Monohydrate [Keflex -] 500 mg PO Q6H #40 capsule 09/10/18 Sulfamethoxazole/Trimethoprim [Bactrim Ds -] 2 tab PO BID #40 tablet 09/10/18 Cardiac Disorders: Yes (cardiomyopathy; mural thrombus, defibrilator) CVA: Yes COPD: No HTN: Yes Hypercholesterolemia: Yes - Surgical History Cardiac Surgery: Yes (ICD) - Immunization History Immunization Up to Date: Yes - Suicide/Smoking/Psychosocial Hx Smoking Status: No Smoking History: Never smoked Have you smoked in the past 12 months: No Number of Cigarettes Smoked Daily: 0 Hx Alcohol Use: No Drug/Substance Use Hx: No Substance Use Type: Alcohol Hx Substance Use Treatment: No Review of Systems - Review of Systems Constitutional: Yes: Chills, Weakness. No: Fever HEENTM: No: Symptoms Reported Respiratory: No: Cough, Shortness of Breath Cardiac (ROS): No: Symptoms Reported ABD/GI: No: Symptoms Reported : No: Symptoms Reported Musculoskeletal: No: Symptoms Reported Integumentary: Yes: See HPI, Lesions Neurological: No: Symptoms reported *Physical Exam - Vital Signs Last Vital Signs Temp Pulse Resp BP Pulse Ox 98.2 F 70 16 133/86 97 09/10/18 11:47 09/10/18 11:47 09/10/18 11:47 09/10/18 11:47 09/10/18 11:47 - Physical Exam General Appearance: Yes: Nourished, Appropriately Dressed. No: Apparent Distress HEENT: positive: EOMI, CHAVEZ, Normal ENT Inspection Neck: positive: Trachea midline, Supple. negative: Lymphadenopathy (R), Lymphadenopathy (L) Respiratory/Chest: positive: Lungs Clear, Normal Breath Sounds Cardiovascular: positive: Regular Rhythm, Regular Rate Vascular Pulses: Carotid (R): 2+, Carotid (L): 2+, Dorsalis-Pedis (R): 2+, Doralis-Pedis (L): 2+ Gastrointestinal/Abdominal: positive: Normal Bowel Sounds, Soft. negative: Tender Male Genitalia: positive: normal genitalia. negative: testicular tenderness Rectal Exam: positive: normal exam, normal rectal tone. negative: hemorrhoids Musculoskeletal: negative: CVA Tenderness Extremity: positive: Normal Capillary Refill, Normal Inspection. 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 Pt states he noticed the cyst 2 days ago and says it started to drain blood today. He has never had a cyst before. Endorses pain and chills. Denies rectal bleeding, bloody stools, abdominal pain, pain with urination, fever, chest pain, sob, n/v/d. Vitals: wnl PE: 3cm area of abscess in perineum extending, ttp, draining blood. Normal rectal exam ddx includes but not limited to perianal abscess, perirectal abscess, perineal abscess pt is not diabetic, low suspicion for chinedu -labs, ts -ct -bactrim due to location of abscess and proximity to pudendal nerves, will call pmd to see if there are any surgeon recommendations. can consult Dr. Rendon 09/10/18 15:22 chemistry hemolyzed. will redraw sample. pending ct based on results 09/10/18 19:23 labs wnl. Cr 2.2 (was 2.2 last time) changed CT to without contrast. No abscess found on CT. Due to INR and abscess in anterior triangle, pt will be given outpt surgery f/ u. rx for bactrim and keflex. instructions for sitz bath. pt is stable for dc home. given return precautions *DC/Admit/Observation/Transfer Diagnosis at time of Disposition: Abscess - Discharge Dispostion Disposition: HOME Condition at time of disposition: Good Decision to Admit order: No - Prescriptions Prescriptions: Cephalexin Monohydrate [Keflex -] 500 mg PO Q6H #40 capsule Sulfamethoxazole/Trimethoprim [Bactrim Ds -] 2 tab PO BID #40 tablet - Referrals Referrals: Sulma Acevedo MD [Primary Care Provider] - Paul Rendon MD [Staff Physician] - - Patient Instructions Printed Discharge Instructions: DI for Anal Abscess Additional Instructions: You were seen in the emergency room today for an abscess. The CT scan shows that it is not deep. Because you are on warfarin, we cannot drain it in the emergency room. I recommend you make an appointment with Dr. Rendon, the information is provided below. He is a general surgeon who can drain the abscess if needed. A prescription for two antibiotics was sent to your pharmacy: Keflex (take 1 capsule 4 times per day) and Bactrim (take two tablets twice a day). You can also do a sitz bath: clean the tub, fill it with 3-4 inches of warm water ad up to 1 tablespoon of baking soda or 2 teaspoons of salt. Come back to the emergency room if pain gets worse, bleeding gets worse, you develop fever, or if any new concerning symptom develops. Thank you - Post Discharge Activity
--- NOTE | 2018-09-10 12:50 | PDOC ---
Attending Attestation - HPI HPI: 09/10/18 13:18 The patient is a 58-year-old male, with a past medical history of afib (on Warfarin), cardiomyopathy s/p AICD, HTN, HLD, who presents to the ED with a cyst underneath the LT buttock. The patient states that he noticed the cyst 2 days ago and it began draining blood today. He reports chills and pain at the site. The patient denies any fever, chills, nausea, vomiting, diarrhea, constipation or abdominal pain. Denies any chest pain or palpitations. Denies any urinary symptoms. Allergies: NKDA Surgical History: ICD placement Social History: None reported. PCP: Dr. Acevedo <Светлана Estes - Last Filed: 09/10/18 13:26> - Resident Resident Name: Vidya Cornejo - ED Attending Attestation I have performed the following: I have examined & evaluated the patient, The case was reviewed & discussed with the resident, I agree w/resident's findings & plan, Exceptions are as noted - Physicial Exam PE: 09/10/18 14:15 Patient is awake and alert, well-nourished, in no distress Normocephalic and atraumatic Conjunctiva are pink CTA RRR Abdomen is soft, nontender, nondistended 2.5 cm area of fluctuance and induration to the left infra-gluteal area within the anterior triangle noncommunicating with the rectum; - Medical Decision Making 09/10/18 14:17 58-year-old male with history of atrial for relation on Coumadin who presents to the ER with a 2.5 cm perianal abscess. Will obtain CT with IV contrast to identify for drainable mass. We will administer Bactrim DS by mouth. We will consult surgery. <Jorge L Robison - Last Filed: 09/10/18 14:17> Attestations - Attestations 09/10/18 13:26 Documentation prepared by Светлана Estes, acting as medical illustrator for Jorge L Robison MD. <Светлана Estes - Last Filed: 09/10/18 13:26>
[2018-09-10] MEDS ORDERED: SULFAMETHOXAZOLE/TRIMETHOPRIM 800MG/160MG D.S. TABLET PO ONE (12:55)
[2018-09-10 13:35] LABS: BASO % 0.5 % (0-2.0); EOS % 0.2 % (0-4.5); HEMATOCRIT 42.8 % (35.4-49); HEMOGLOBIN 14.1 GM/dL (11.7-16.9); LYMPH % 11.2 % (8-40); MCH 30.1 pg (25.7-33.7); MCHC 32.9 g/dl (32.0-35.9); MEAN CELL VOLUME 91.5 fl (80-96); MEAN PLT VOLUME 10.7 fl (7.5-11.1); MONO % 12.1 % (3.8-10.2); PLATELET COUNT 201 K/MM3 (134-434); RBC 4.67 M/mm3 (4.00-5.60); RDW 13.2 % (11.9-15.9); WHITE BLOOD COUNT 9.9 K/mm3 (4.0-10.0)
[2018-09-10 13:47] LABS: INR 2.67 (0.83-1.09); PROTHROMBIN TIME (PATIENT) 31.8 SEC (9.7-13.0)
[2018-09-10] MEDS ORDERED: SULFAMETHOXAZOLE/TRIMETHOPRIM 800MG/160MG D.S. TABLET ONE (14:40)
[2018-09-10] MEDS ORDERED: SODIUM CHLORIDE 500 ML IV STA (15:36)
[2018-09-10 16:05] LABS: ALBUMIN 3.9 g/dl (3.4-5.0); ALK PHOS 89 U/L (45-117); ANION GAP 8 MMOL/L (8-16); BILIRUBIN,TOTAL 0.5 mg/dL (0.2-1); BLOOD UREA NITROGEN 37 mg/dL (7-18); CALCIUM 9.1 mg/dL (8.5-10.1); CHLORIDE 108 mmol/L (98-107); CO2 24 mmol/L (21-32); CREATININE 2.2 mg/dL (0.55-1.3); GLUCOSE,RANDOM 100 mg/dL (74-106); POTASSIUM 4.7 mmol/L (3.5-5.1); SGOT/AST 82 U/L (15-37); SGPT/ALT 127 U/L (13-61); SODIUM 140 mmol/L (136-145); TOT PROT 6.8 g/dl (6.4-8.2)
[2018-09-10 18:39] VITALS: BP 149/81; PULSE 69; TEMP 98.9
== END 2018-09-10 18:51 | disposition home or self-care (01) ==
LOC: JER 11:40
PROC: 3E0337Z Introduction of Electrolytic and Water Balance Substance into Peripheral Vein, Percutaneous Approach (ICD-10-PCS; principal; 2018-09-10)
DX: L02.31 Cutaneous abscess of buttock (principal); I10 Essential (primary) hypertension; E78.5 Hyperlipidemia, unspecified; I42.9 Cardiomyopathy, unspecified; I48.91 Unspecified atrial fibrillation; Z79.01 Long term (current) use of anticoagulants
CPT/HCPCS: 36415; 72192-TC; 80053; 85025; 85610; 86850; 86900; 86901; 99283-25

== ENCOUNTER 2018-09-19 14:09 | Inpatient (IN) | payer OTHER ==
[2018-09-19 14:27] VITALS: BMI 32.3
--- NOTE | 2018-09-19 14:42 | PDOC ---
History of Present Illness - General Chief Complaint: Weakness Stated Complaint: DIZZNESS Time Seen by Provider: 09/19/18 14:41 History Source: Patient Exam Limitations: No Limitations - History of Present Illness Initial Comments: 09/19/18 15:02 58 year old male with PMH atrial fibrillation on Coumadin, nonischemic cardiomyopathy, HTN, HLD, CKD, defibrillator, TIA presented to ED for generalized weakness since this morning. Pt admitted to nausea and bilateral hand shaking. He stated his symptoms are similar to prior when his "blood level was out of whack and I had to be admitted to stop the Coumadin for a few days." Pt was recently seen in [facility] ED for perianal abscess, was drained and placed on Keflex and Bactrim. Pt reported he has not seen his PCP since then because he has an appointment with Dr. Acevedo on 09/25. Pt denied chest pain, shortness of breath, focal weakness, dizziness, vomiting, lower extremity swelling. Pt admitted to watery diarrhea since starting the antibiotics. Allergies: NKDA PCP: Dr. Acevedo Past History - Past Medical History Allergies/Adverse Reactions: Allergies Allergy/AdvReac Type Severity Reaction Status Date / Time No Known Allergies Allergy Verified 09/10/18 11:46 Home Medications: Ambulatory Orders Lisinopril [Prinivil] 10 mg PO DAILY 07/16/13 Atorvastatin Ca [Lipitor] 20 mg PO HS 05/29/17 Acetaminophen [Tylenol .Regular Strength -] 650 mg PO Q6H PRN tablet 05/31/17 Metoprolol Succinate [Toprol XL -] 50 mg PO DAILY 30 Days #30 tab.sr.24h Amiodarone HCl [Cordarone -] 400 mg PO BID #60 tab 06/11/17 Warfarin Na [Coumadin -] 5 mg PO DAILY@1800 06/18/17 Cephalexin Monohydrate [Keflex -] 500 mg PO Q6H #40 capsule 09/10/18 Sulfamethoxazole/Trimethoprim [Bactrim Ds -] 2 tab PO BID #40 tablet 09/10/18 Cardiac Disorders: Yes (cardiomyopathy; mural thrombus, defibrilator) CVA: Yes COPD: No HTN: Yes Hypercholesterolemia: Yes - Surgical History Cardiac Surgery: Yes (ICD) - Immunization History Immunization Up to Date: Yes - Suicide/Smoking/Psychosocial Hx Smoking Status: No Smoking History: Never smoked Have you smoked in the past 12 months: No Number of Cigarettes Smoked Daily: 0 Information on smoking cessation initiated: No Hx Alcohol Use: No Drug/Substance Use Hx: No Substance Use Type: Alcohol Hx Substance Use Treatment: No Review of Systems - Review of Systems Able to Perform ROS?: Yes Comments:: 09/19/18 15:09 General: admitted to generalized weakness. HEENT: denied sore throat, rhinorrhea, ear pain. Heart: denied chest pain, palpitations, syncope, diaphoresis. Respiratory: denied shortness of breath, cough, sputum production, hemoptysis. Abdomen: admitted to nausea, diarrhea. denied abdominal pain, vomiting, constipation, blood in stool. : denied dysuria, increased urinary frequency, hematuria, urinary incontinence , flank pain. Back: denied back pain. Musculoskeletal: denied joint pain, muscle pain, joint swelling. Neurological: admitted to tremor. denied headache, dizziness, numbness, tingling , weakness. Skin: denied rash, laceration, abrasion. *Physical Exam - Vital Signs Last Vital Signs Temp Pulse Resp BP Pulse Ox 98.4 F 72 18 98/71 98 09/19/18 14:25 09/19/18 14:25 09/19/18 14:25 09/19/18 14:25 09/19/18 14:25 - Physical Exam Comments: 09/19/18 15:10 Constitutional: Well-nourished, Well-developed, appearing stated age. HEENT: head is normocephalic, atraumatic. EOMI. PERRLA. Neck: supple. Full ROM. Heart: regular rhythm. no murmurs, rubs or gallops. Lungs: clear to auscultation bilaterally. no crackles, rhonchi or wheezing. no stridor. Abdomen: soft, nontender. normal bowel sounds. no rebound, guarding, masses. Extremities: peripheral pulses intact. no lower extremity edema. Neurological: CN 2-12 grossly intact. moves all four extremities. resting tremor of bilateral hands with extension of arms. Psych: awake, alert, oriented x3. follows commands. answers questions appropriately. ED Treatment Course - LABORATORY CBC & Chemistry Diagram: 09/20/18 08:15 09/20/18 08:15 Medical Decision Making - Medical Decision Making 09/19/18 15:10 58 year old male with above PMH presented to ED for lightheadedness, generalized weakness, nausea, bilateral hand tremors since this morning, consistent with prior episode of elevated INR from Coumadin use. Pt is on Amiodarone. Initial Vital Signs Temp Pulse Resp BP Pulse Ox 98.4 F 72 18 98/71 98 09/19/18 14:25 09/19/18 14:25 09/19/18 14:25 09/19/18 14:25 09/19/18 14:25 Afebrile. No tachycardia. No tachypnea. Mild hypotension. No hypoxia on room air. Labs ordered: CBC, CMP, Mag, Phos, BNP, TSH, troponin, UA/UC Imaging ordered: CXR Medications ordered: none EKG performed at 1422: rate 65, regular rhythm, 1st degree AV block, 1 PVC, flipped T in aVL, otherwise no ST changes. 09/19/18 15:53 CBC WBC 5.9 K/mm3 (4.0-10.0) 09/19/18 14:53 RBC 4.91 M/mm3 (4.00-5.60) 09/19/18 14:53 Hgb 14.8 GM/dL (11.7-16.9) 09/19/18 14:53 Hct 45.7 % (35.4-49) 09/19/18 14:53 MCV 93.0 fl (80-96) 09/19/18 14:53 MCH 30.0 pg (25.7-33.7) 09/19/18 14:53 MCHC 32.3 g/dl (32.0-35.9) 09/19/18 14:53 RDW 13.6 % (11.9-15.9) 09/19/18 14:53 Plt Count 219 K/MM3 (134-434) 09/19/18 14:53 MPV 9.8 fl (7.5-11.1) 09/19/18 14:53 Absolute Neuts (auto) 4.0 K/mm3 (1.5-8.0) 09/19/18 14:53 Neutrophils % 66.9 % (42.8-82.8) 09/19/18 14:53 Lymphocytes % 12.8 % (8-40) 09/19/18 14:53 Monocytes % 16.6 % (3.8-10.2) H 09/19/18 14:53 Eosinophils % 2.4 % (0-4.5) D 09/19/18 14:53 Basophils % 1.3 % (0-2.0) 09/19/18 14:53 Nucleated RBC % 0 % (0-0) 09/19/18 14:53 No leukocytosis. No anemia. CMP Sodium 135 mmol/L (136-145) L 09/19/18 14:43 Potassium 6.0 mmol/L (3.5-5.1) H 09/19/18 14:43 Chloride 108 mmol/L (98-107) H 09/19/18 14:43 Carbon Dioxide 17 mmol/L (21-32) L 09/19/18 14:43 Anion Gap 10 MMOL/L (8-16) 09/19/18 14:43 BUN 37 mg/dL (7-18) H 09/19/18 14:43 Creatinine 2.9 mg/dL (0.55-1.3) H 09/19/18 14:43 Creat Clearance w eGFR 22.38 (>60) 09/19/18 14:43 Random Glucose 122 mg/dL (74-106) H 09/19/18 14:43 Calcium 9.4 mg/dL (8.5-10.1) 09/19/18 14:43 Phosphorus 4.0 mg/dL (2.5-4.9) 09/19/18 14:44 Magnesium 2.3 mg/dL (1.8-2.4) 09/19/18 14:43 Total Bilirubin 0.2 mg/dL (0.2-1) 09/19/18 14:43 AST 353 U/L (15-37) H 09/19/18 14:43 ALT 532 U/L (13-61) H 09/19/18 14:43 Alkaline Phosphatase 109 U/L (45-117) 09/19/18 14:43 Troponin I 0.02 ng/ml (0.00-0.05) 09/19/18 14:44 B-Natriuretic Peptide 1571.4 pg/ml (5-125) H 09/19/18 14:44 Total Protein 7.4 g/dl (6.4-8.2) 09/19/18 14:43 Albumin 4.3 g/dl (3.4-5.0) 09/19/18 14:43 TSH 6.18 uIU/ml (0.358-3.74) H D 09/19/18 14:44 Hyperkalemia. LIANNE. Transaminitis. Mildly elevated BNP. Normal troponin. Elevated TSH. INR, PTT INR 6.91 (0.83-1.09) H* 09/19/18 14:53 Severely elevated INR. Urine Test Results Urine Color Yellow 09/19/18 15: Urine Appearance Turbid 09/19/18 15:19 Urine pH 5.5 (5.0-8.0) 09/19/18 15:19 Ur Specific [place] 1.026 (1.010-1.035) 09/19/18 15:19 Urine Protein 2+ (NEGATIVE) H 09/19/18 15:19 Urine Glucose (UA) Negative (NEGATIVE) 09/19/18 15:19 Urine Ketones Negative (NEGATIVE) 09/19/18 15:19 Urine Blood Negative (NEGATIVE) 09/19/18 15:19 Urine Nitrite Negative (NEGATIVE) 09/19/18 15:19 Urine Bilirubin Negative (NEGATIVE) 09/19/18 15:19 Ur Leukocyte Esterase Trace (NEGATIVE) 09/19/18 15:19 WBC 4 Asymptomatic No UTI. Medications ordered: Albuterol neb, regular insulin 10 units, 1 amp D50, bicarb Pt to be admitted for: 1) Hyperkalemia 2) LIANNE 3) Supratherapeutic INR 09/19/18 16:[address] Sulma Acevedo, who recommended admission to [facility] for obs. Pending admission. 09/19/18 20:32 Lab called about repeat BMP, stated to RN that there was an issue with the label , but they did not call us about the issue. New label sent down. 09/19/18 20:57 CMP Sodium 136 mmol/L (136-145) 09/19/18 19:49 Potassium 5.6 mmol/L (3.5-5.1) H 09/19/18 19:49 Chloride 107 mmol/L (98-107) 09/19/18 19:49 Carbon Dioxide 19 mmol/L (21-32) L 09/19/18 19:49 Anion Gap 10 MMOL/L (8-16) 09/19/18 19:49 BUN 39 mg/dL (7-18) H 09/19/18 19:49 Creatinine 2.6 mg/dL (0.55-1.3) H 09/19/18 19:49 Creat Clearance w eGFR 25.39 (>60) 09/19/18 19:49 Random Glucose 95 mg/dL (74-106) 09/19/18 19:49 Calcium 8.8 mg/dL (8.5-10.1) 09/19/18 19:49 Phosphorus 4.0 mg/dL (2.5-4.9) 09/19/18 14:44 Magnesium 2.3 mg/dL (1.8-2.4) 09/19/18 14:43 Total Bilirubin 0.2 mg/dL (0.2-1) 09/19/18 14:43 AST 353 U/L (15-37) H 09/19/18 14:43 ALT 532 U/L (13-61) H 09/19/18 14:43 Alkaline Phosphatase 109 U/L (45-117) 09/19/18 14:43 Troponin I 0.02 ng/ml (0.00-0.05) 09/19/18 14:44 B-Natriuretic Peptide 1571.4 pg/ml (5-125) H 09/19/18 14:44 Total Protein 7.4 g/dl (6.4-8.2) 09/19/18 14:43 Albumin 4.3 g/dl (3.4-5.0) 09/19/18 14:43 TSH 6.18 uIU/ml (0.358-3.74) H D 09/19/18 14:44 Repeat potassium 5.6 Cr mildly improved Medications ordered: Albuterol neb, insulin 10 units, 1 amp D50, bicarb 09/19/18 22:15 No admission orders are in, Dr. Acevedo called, did not answer, voicemail left. *DC/Admit/Observation/Transfer Diagnosis at time of Disposition: Hyperkalemia, LIANNE (acute kidney injury), Supratherapeutic INR - Discharge Dispostion Condition at time of disposition: Stable Decision to Admit order: Yes - Referrals - Patient Instructions - Post Discharge Activity
--- NOTE | 2018-09-19 14:45 | PDOC ---
Attending Attestation - HPI HPI: 09/19/18 15:12 The patient is a 58 year old male, with a significant PMH of afib (on Coumadin) , cardiomyopathy (s/p AICD), HTN, and HLD who presents to the emergency department with generalized weakness and dizziness. The patient states he woke up this morning and felt his arms shaking, was nauseous and lightheaded. The patient notes these symptoms are similar to his prior symptoms when he had blood problems. The patient states he was recently admitted and discharged from [facility] for perianal abscess. The patient notes he has a follow up with his PCP, Dr. Acevedo, on 09/25/18. The patient denies chest pain, shortness of breath, or headache. The patient denies fever, chills, diarrhea or constipation. The patient denies dysuria, frequency, urgency or hematuria. Allergies: NKDA Surgical History: ICD placement Social History: None reported. PCP: Dr. Acevedo <Madhu Ambrosio - Last Filed: 09/19/18 15:19> - Resident Resident Name: Lee Ann Malloy - ED Attending Attestation I have performed the following: I have examined & evaluated the patient, The case was reviewed & discussed with the resident, I agree w/resident's findings & plan, Exceptions are as noted - Physicial Exam PE: GENERAL: Awake, alert, and fully oriented, in no acute distress HEAD: No signs of trauma EYES: PERRLA, EOMI, sclera anicteric, conjunctiva clear ENT: Auricles normal inspection, hearing grossly normal, nares patent, oropharynx clear without exudates. Moist mucosa NECK: Normal ROM, supple, no lymphadenopathy, JVD, or masses LUNGS: Breath sounds equal, clear to auscultation bilaterally. No wheezes, and no crackles HEART: Regular rate and rhythm, normal S1 and S2, no murmurs, rubs or gallops ABDOMEN: Soft, nontender, normoactive bowel sounds. No guarding, no rebound. No masses EXTREMITIES: Normal range of motion, no edema. No clubbing or cyanosis. No cords, erythema, or tenderness NEUROLOGICAL: Cranial nerves II through XII grossly intact. Normal speech. Motor and sensation intact. Gait not tested due to initial BP. SKIN: Warm, Dry, normal turgor, no rashes or lesions noted. - Medical Decision Making PT found to have supratherapeutic INR (but no active bleeding) and hyperkalemia in the setting of acute on chronic renal failure. Will admit. <Elisha Barney - Last Filed: 09/19/18 16:20> Attestations - Attestations 09/19/18 15:12 Documentation prepared by Madhu Ambrosio, acting as medical insurance claims processor for Elisha Barney MD, MD <Madhu Ambrosio - Last Filed: 09/19/18 15:19>
[2018-09-19 15:10] LABS: BASO % 1.3 % (0-2.0); EOS % 2.4 % (0-4.5); HEMATOCRIT 45.7 % (35.4-49); HEMOGLOBIN 14.8 GM/dL (11.7-16.9); LYMPH % 12.8 % (8-40); MCHC 32.3 g/dl (32.0-35.9); MEAN PLT VOLUME 9.8 fl (7.5-11.1); MONO % 16.6 % (3.8-10.2); NEUT % 66.9 % (42.8-82.8); PLATELET COUNT 219 K/MM3 (134-434); RBC 4.91 M/mm3 (4.00-5.60); RDW 13.6 % (11.9-15.9); WHITE BLOOD COUNT 5.9 K/mm3 (4.0-10.0)
[2018-09-19 15:27] LABS: PROTHROMBIN TIME (PATIENT) 83.1 SEC (9.7-13.0)
[2018-09-19 15:29] LABS: PH,URINE 5.5 (5.0-8.0); URINE APPEARANCE TURBID; URINE BACTERIA 1.4 /hpf (NEGATIVE); URINE BILIRUBIN NEGATIVE (NEGATIVE); URINE CASTS 47 /hpf (0-8); URINE COLOR YELLOW; URINE GLUCOSE (UA) NEGATIVE (NEGATIVE); URINE KETONE NEGATIVE (NEGATIVE); URINE LEUK ESTERASE TRACE (NEGATIVE); URINE NITRITE NEGATIVE (NEGATIVE); URINE PROTEIN 2+ (NEGATIVE); URINE RBC 3 /hpf (0-4); URINE UROBILINOGEN 0.2 mg/dL (0.2-1.0); URINE WBC 4 /hpf (0-5)
[2018-09-19 15:30] LABS: ACTIVATED PTT 68.2 SECONDS (25.2-36.5)
[2018-09-19 15:39] LABS: INR 6.91 (0.83-1.09)
[2018-09-19 15:39] LABS: ALBUMIN 4.3 g/dl (3.4-5.0); ALK PHOS 109 U/L (45-117); ANION GAP 10 MMOL/L (8-16); BILIRUBIN,TOTAL 0.2 mg/dL (0.2-1); BLOOD UREA NITROGEN 37 mg/dL (7-18); CALCIUM 9.4 mg/dL (8.5-10.1); CHLORIDE 108 mmol/L (98-107); CO2 17 mmol/L (21-32); CREATININE 2.9 mg/dL (0.55-1.3); GLUCOSE,RANDOM 122 mg/dL (74-106); MAGNESIUM 2.3 mg/dL (1.8-2.4); SGOT/AST 353 U/L (15-37); SGPT/ALT 532 U/L (13-61); SODIUM 135 mmol/L (136-145); TOT PROT 7.4 g/dl (6.4-8.2)
[2018-09-19 15:45] LABS: N-TERMINAL BNP 1571.4 pg/ml (5-125)
[2018-09-19] MEDS ORDERED: DEXTROSE 50%-WATER - 25 GM/50 ML VIAL IVPUSH ONE ×2 (15:52→20:55)
[2018-09-19] MEDS ORDERED: ALBUTEROL SO4 0.5 % INH SOLN 2.5 MG/0.5 ML VIAL.NEB. NEB ONE (15:52)
[2018-09-19] MEDS ORDERED: INSULIN REGULAR HUMAN 100 UNITS/ML *VIAL IVPUSH ONE ×2 (15:52→20:55)
[2018-09-19] MEDS ORDERED: ALBUTEROL SO4 0.083% IH SOL 2.5 MG/3 ML VIAL.NEB. NEB ONE (16:02)
[2018-09-19] MEDS ORDERED: DEXTROSE 50%-WATER 25 GM/50 ML DISP.SYRIN ONE ×2 (16:02→21:09)
[2018-09-19] MEDS ORDERED: INSULIN NPH 100 UNITS/ML *VIAL ONE (16:03)
[2018-09-19] MEDS ORDERED: SODIUM BICARBONATE 8.4% 50 MEQ/50 ML VIAL IV ONE ×2 (16:06→20:56)
[2018-09-19] MEDS ORDERED: SODIUM BICARBONATE 8.4% - 50 ML ONE ×2 (16:14→21:09)
[2018-09-19 20:44] LABS: ANION GAP 10 MMOL/L (8-16); BLOOD UREA NITROGEN 39 mg/dL (7-18); CALCIUM 8.8 mg/dL (8.5-10.1); CHLORIDE 107 mmol/L (98-107); CO2 19 mmol/L (21-32); CREATININE 2.6 mg/dL (0.55-1.3); GLUCOSE,RANDOM 95 mg/dL (74-106); POTASSIUM 5.6 mmol/L (3.5-5.1); SODIUM 136 mmol/L (136-145)
[2018-09-19] MEDS ORDERED: INSULIN REGULAR HUMAN 100 UNITS/ML *VIAL ONE (21:09)
[2018-09-20 08:40] LABS: BASO % 1.2 % (0-2.0); EOS % 2.5 % (0-4.5); HEMATOCRIT 43.1 % (35.4-49); HEMOGLOBIN 14.3 GM/dL (11.7-16.9); LYMPH % 17.4 % (8-40); MCH 30.1 pg (25.7-33.7); MCHC 33.1 g/dl (32.0-35.9); MEAN CELL VOLUME 90.9 fl (80-96); MEAN PLT VOLUME 9.5 fl (7.5-11.1); MONO % 17.5 % (3.8-10.2); NEUT % 61.4 % (42.8-82.8); PLATELET COUNT 207 K/MM3 (134-434); RBC 4.75 M/mm3 (4.00-5.60); RDW 13.3 % (11.9-15.9)
[2018-09-20] MEDS ORDERED: ACETAMINOPHEN 325 MG TABLET (FP) PO PRN (08:47)
[2018-09-20 08:57] LABS: PROTHROMBIN TIME (PATIENT) 60.8 SEC (9.7-13.0)
[2018-09-20] MEDS ORDERED: CEPHALEXIN MONOHYDRATE 500 MG CAPSULE (UD) PO SCH (09:00)
[2018-09-20] MEDS ORDERED: AMIODARONE HCL 200 MG TABLET (FP) PO SCH (10:00)
[2018-09-20 10:10] LABS: ANION GAP 9 MMOL/L (8-16); BLOOD UREA NITROGEN 38 mg/dL (7-18); CHLORIDE 106 mmol/L (98-107); CO2 20 mmol/L (21-32); CREATININE 2.8 mg/dL (0.55-1.3); GLUCOSE,RANDOM 107 mg/dL (74-106); POTASSIUM 5.6 mmol/L (3.5-5.1); SODIUM 135 mmol/L (136-145)
--- NOTE | 2018-09-20 10:12 | CON.CARD ---
Consult Consult Specialty:: cardio - History of Present Illness Chief Complaint: weakness History of Present Illness: 58 M here with generalized weakness pt states for past 2d he feels weak/drained, dizzy and shaky EVERY TIME HE IS STANDING FOR SOME TIMES. o/w no sx's. no vomiting or diarrhea (until today had loose stool). no diuretics at home. denies cp, palp, syncope. 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 Cardio/Vascular: Yes: AFIB, HTN, Hyperlipdemia, Other (nonischemic cardiomyopathy--status post AICD) Renal/: Yes: Renal Inusuff (CKD) - Past Surgical History Past Surgical History: Yes: AICD - Alcohol/Substance Use Hx Alcohol Use: No - Smoking History Smoking history: Never smoked Have you smoked in the past 12 months: No Aproximately how many cigarettes per day: 0 Home Medications - Allergies Allergies/Adverse Reactions: Allergies Allergy/AdvReac Type Severity Reaction Status Date / Time No Known Allergies Allergy Verified 09/10/18 11:46 - Home Medications Home Medications: Ambulatory Orders Lisinopril [Prinivil] 10 mg PO DAILY 07/16/13 Atorvastatin Ca [Lipitor] 20 mg PO HS 05/29/17 Acetaminophen [Tylenol .Regular Strength -] 650 mg PO Q6H PRN tablet 05/31/17 Metoprolol Succinate [Toprol XL -] 50 mg PO DAILY 30 Days #30 tab.sr.24h Amiodarone HCl [Cordarone -] 400 mg PO BID #60 tab 06/11/17 Warfarin Na [Coumadin -] 5 mg PO DAILY@1800 06/18/17 Cephalexin Monohydrate [Keflex -] 500 mg PO Q6H #40 capsule 09/10/18 Sulfamethoxazole/Trimethoprim [Bactrim Ds -] 2 tab PO BID #40 tablet 09/10/18 Family Disease History - Family Disease History Family History: Denies (no known cmp) Review of Systems - Review of Systems Constitutional: reports: Weakness. denies: Chills, Fever Eyes: denies: Eye Pain HENT: denies: Nasal Congestion Neck: denies: Stiffness Cardiovascular: denies: Palpitations Respiratory: denies: Orthopnea, PND Gastrointestinal: denies: Diarrhea, Rectal Bleeding Genitourinary: denies: Burning, Hematuria Musculoskeletal: denies: Muscle Pain Integumentary: denies: Rash Neurological: denies: Numbness, Seizure, Syncope Endocrine: denies: Excessive Sweating Hematology/Lymphatic: denies: Excessive Bleeding Vital Signs: Vital Signs Temperature 98.1 F 09/20/18 01:43 Pulse Rate 67 09/20/18 01:43 Respiratory Rate 20 09/20/18 01:43 Blood Pressure 112/56 L 09/20/18 01:43 O2 Sat by Pulse Oximetry (%) 98 09/19/18 23:00 Constitutional: Yes: Well Nourished, No Distress Eyes: No: Sclera Icterus HENT: No: Nasal Congestion Neck: No: Decreased ROM Respiratory: Yes: CTA Bilaterally. No: Accessory Muscle Use, Rales, Wheezes Gastrointestinal: Yes: Normal Bowel Sounds. No: Distention, Hepatomegaly, Palpable Mass, Tenderness Cardiovascular: Yes: Regular Rate and Rhythm JVD: No Carotid Bruit: No PMI: Non-Displaced Heart Sounds: Yes: S1, S2. No: Gallop Murmur: No: Systolic Murmur, Diastolic Murmur Musculoskeletal: Yes: Other (No kyphosis) Extremities: No: Cool, Cyanosis Edema: No Peripheral Pulses: 2+ Left Carotid, 2+ Right Carotid, 2+ Left Doralis Pedis, 2+ Right Dorsalis Pedis Integumentary: No: Jaundice Neurological: Yes: Alert, Oriented (x3) Psychiatric: No: Agitated - Other Data Labs, Other Data: CBC, BMP 09/20/18 08:15 INR, PTT INR 6.91 (0.83-1.09) H* 09/19/18 14:53 Troponin, BNP 09/19/18 14:44 Troponin I 0.02 B-Natriuretic Peptide 1571.4 H Troponin, BNP 09/19/18 14:44 Troponin I 0.02 B-Natriuretic Peptide 1571.4 H Laboratory Tests 09/19/18 09/19/18 09/20/18 14:43 14:44 08:15 WBC 6.0 Hgb 14.3 Plt Count 207 Sodium 135 L Potassium 6.0 H Carbon Dioxide BUN 37 H Creatinine 2.9 H AST 353 H ALT 532 H Troponin I 0.02 B-Natriuretic Peptide 1571.4 H TSH 6.18 H D 09/20/18 08:15 WBC Hgb Plt Count Sodium 135 L Potassium 5.6 H Carbon Dioxide 20 L BUN 38 H Creatinine 2.8 H AST ALT Troponin I B-Natriuretic Peptide TSH Assessment/Plan echo 05/2017: lvef 25-30, global hk, nl rv, mild ar, rvsp 30-40 echo 08/2015: mod lve, mod-sev dec lvef, global hk, nl rv, mild AR, mild ao root dil 4.3 cm cath 07/2014: non obs cad (only <30% pRCA). 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 , hld, htn, cva/tia's, ckd who p/w presyncope/sob weakness/dizziness/shakiness, transaminitis, elevated TSH (6), LIANNE: - sx's upon position change--check orthostatics - ? amio contributing to hi TSH--treat if indicated, per pmd (stable vs 12/25 outpt labs) - rec w/u for liver dz and if no etiology found, will need EP input regarding d/ c amio--? substitute another med, ? attempt VT ablation (d/w'd dr pizano) - sx's not c/w arrhythmia--d/c tele (not needed for K of 5.6, pt has PM/ defibrillator) Ventricular fibrillation with ICD shock 05/2017: - per d/w EP at that time, pt started on amio (to remain on 200 qd fdc for maintenance) - cont amio 200 qd until liver w/u complete--as above nonisch CMP: - severe LV hypokinesis, no signif valve dysfunction/pulm HTN on prior echoes - bp's soft--cont home metopr succ 50 bid if remains stable - hold lisinopril for now given LIANNE with K 6.0 on admit, remains mildly elevated - CXR clear. BNP 1500 (ranges 1K-2K), low GFR. appears euvolemic--no diuresis HTN: - bp initially 90s - observe closely, holding VALDO (LIANNE, hyperK), continuing metopr as bp tolerates CKD: - stable at baseline h/o CVA: - dr paniagua's notes reviewed--no prior documented afib but treated with warfarin for CVA with very low EF - cont same, INR goal 2-3 (hi here--holding for now) - hold statin while AST/LT high LIANNE on CKD: - baseline creat approx 1.5 - creat up here - per pmd, ? renal consult
[2018-09-20 10:19] LABS: INR 5.07 (0.83-1.09)
--- NOTE | 2018-09-20 11:10 | HP ---
Admitting History and Physical - Primary Care Physician PCP: Sulma Acevedo - Admission Chief Complaint: weakness History of Present Illness: ER HISTORY - HPI HPI: 09/19/18 15:12 The patient is a 58 year old male, with a significant PMH of afib (on Coumadin) , cardiomyopathy (s/p AICD), HTN, and HLD who presents to the emergency department with generalized weakness and dizziness. The patient states he woke up this morning and felt his arms shaking, was nauseous and lightheaded. The patient notes these symptoms are similar to his prior symptoms when he had blood problems. The patient states he was recently admitted and discharged from [facility] for perianal abscess. The patient notes he has a follow up with his PCP, Dr. Acevedo, on 09/25/18. The patient denies chest pain, shortness of breath, or headache. The patient denies fever, chills, diarrhea or constipation. The patient denies dysuria, frequency, urgency or hematuria. Allergies: NKDA Surgical History: ICD placement Social History: None reported. PCP: Dr. 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 Cardiovascular: Yes: AFIB, HTN, Hyperlipdemia, Other (nonischemic cardiomyopathy --status post AICD) Renal/: Yes: Renal Inusuff (CKD) - Past Surgical History Past Surgical History: Yes: AICD - Smoking History Smoking history: Never smoked Have you smoked in the past 12 months: No Aproximately how many cigarettes per day: 0 - Alcohol/Substance Use Hx Alcohol Use: No Home Medications - Allergies Allergies/Adverse Reactions: Allergies Allergy/AdvReac Type Severity Reaction Status Date / Time No Known Allergies Allergy Verified 09/10/18 11:46 - Home Medications Home Medications: Ambulatory Orders Lisinopril [Prinivil] 10 mg PO DAILY 07/16/13 Atorvastatin Ca [Lipitor] 20 mg PO HS 05/29/17 Acetaminophen [Tylenol .Regular Strength -] 650 mg PO Q6H PRN tablet 05/31/17 Metoprolol Succinate [Toprol XL -] 50 mg PO DAILY 30 Days #30 tab.sr.24h Amiodarone HCl [Cordarone -] 400 mg PO BID #60 tab 06/11/17 Warfarin Na [Coumadin -] 5 mg PO DAILY@1800 06/18/17 Cephalexin Monohydrate [Keflex -] 500 mg PO Q6H #40 capsule 09/10/18 Sulfamethoxazole/Trimethoprim [Bactrim Ds -] 2 tab PO BID #40 tablet 09/10/18 Review of Systems - Review of Systems Constitutional: denies: Chills, Fever Cardiovascular: denies: Chest Pain, Palpitations Physical Examination Vital Signs: Vital Signs Temperature 98.1 F 09/20/18 08:49 Pulse Rate 65 09/20/18 08:49 Respiratory Rate 20 09/20/18 08:49 Blood Pressure 104/80 09/20/18 08:49 O2 Sat by Pulse Oximetry (%) 98 09/20/18 08:49 Constitutional: Yes: No Distress, Calm Cardiovascular: Yes: Pulse Irregular Respiratory: Yes: CTA Bilaterally Gastrointestinal: Yes: Normal Bowel Sounds, Soft, Abdomen, Obese. No: Tenderness Edema: No Neurological: Yes: Alert, Oriented Labs: CBC, BMP 09/20/18 08:15 09/20/18 08:15 Imaging - Results Chest X-ray: Image Reviewed (clear) EKG: Image Reviewed (Afib) Problem List - Problems (1) Elevated LFTs Code(s): R94.5 - ABNORMAL RESULTS OF LIVER FUNCTION STUDIES (2) LIANNE (acute kidney injury) Code(s): N17.9 - ACUTE KIDNEY FAILURE, UNSPECIFIED (3) Hyperkalemia Code(s): E87.5 - HYPERKALEMIA (4) Supratherapeutic INR Code(s): R79.1 - ABNORMAL COAGULATION PROFILE (5) AF (paroxysmal atrial fibrillation) Code(s): I48.0 - PAROXYSMAL ATRIAL FIBRILLATION (6) Abdominal pain Code(s): R10.9 - UNSPECIFIED ABDOMINAL PAIN Assessment/Plan PLAN Pt on Amiodarone for rate control , spoke with cardiology - may need to change this Elevated LFT-- ordered abd sono trend LFT DC Bactrim ds continue one more day of kelfex kayexalate today montor renal function Bactrim DS may be the cause for worsening renal function check renal and bladder sono Telemetry TSH -- high-- start Synthroid Coumadin on hold due to elevated INR
[2018-09-20] MEDS ORDERED: SODIUM POLYSTYRENE SULFONATE 15 GM/60 ML BOTTLE PO ONE (12:00)
[2018-09-20 12:17] LABS: ALBUMIN 4.1 g/dl (3.4-5.0); ALK PHOS 105 U/L (45-117); BILIRUBIN,DIRECT 0.1 mg/dL (0.0-0.2); BILIRUBIN,TOTAL 0.5 mg/dL (0.2-1); SGOT/AST 646 U/L (15-37); SGPT/ALT 896 U/L (13-61); TOT PROT 7.2 g/dl (6.4-8.2)
[2018-09-20] MEDS ORDERED: ATORVASTATIN CA 20 MG TABLET (FP) PO SCH (22:00)
[2018-09-21] MEDS ORDERED: LEVOTHYROXINE NA 25 MCG TABLET (FP) PO SCH (07:00)
[2018-09-21 07:48] LABS: INR 3.24 (0.83-1.09); PROTHROMBIN TIME (PATIENT) 38.7 SEC (9.7-13.0)
[2018-09-21 08:19] LABS: ALBUMIN 4.4 g/dl (3.4-5.0); ALK PHOS 121 U/L (45-117); ANION GAP 9 MMOL/L (8-16); BLOOD UREA NITROGEN 44 mg/dL (7-18); CHLORIDE 104 mmol/L (98-107); CO2 22 mmol/L (21-32); CREATININE 3.1 mg/dL (0.55-1.3); GLUCOSE,RANDOM 119 mg/dL (74-106); POTASSIUM 4.8 mmol/L (3.5-5.1); SGOT/AST 850 U/L (15-37); SGPT/ALT 1354 U/L (13-61); SODIUM 135 mmol/L (136-145); TOT PROT 7.6 g/dl (6.4-8.2)
--- NOTE | 2018-09-21 09:14 | PN ---
Progress Note (short form) - Note Progress Note: feels weak and lightheaded no sob, chest pain Vital Signs - 24 hr 09/20/18 09/20/18 09/20/18 16:49 17:00 17:45 Temperature 97.8 F Pulse Rate 65 Pulse Rate [ 63 Left side Supine] Pulse Rate [ 77 Sitting] Pulse Rate [ 80 Standing] Respiratory 20 20 Rate Blood Pressure 115/72 Blood Pressure 138/88 [Left side Supine] Blood Pressure 136/82 [Sitting] Blood Pressure 116/75 [Standing] O2 Sat by Pulse 98 Oximetry (%) 09/20/18 09/20/18 09/21/18 20:10 20:15 06:00 Temperature 98.7 F 98.9 F Pulse Rate 77 61 Pulse Rate [ Left side Supine] Pulse Rate [ Sitting] Pulse Rate [ Standing] Respiratory 20 20 Rate Blood Pressure 139/55 L 123/74 Blood Pressure [Left side Supine] Blood Pressure [Sitting] Blood Pressure [Standing] O2 Sat by Pulse 97 Oximetry (%) 09/21/18 09/21/18 09/21/18 09:00 09:45 11:07 Temperature 97.9 F 98.5 F Pulse Rate 70 67 Pulse Rate [ Left side Supine] Pulse Rate [ Sitting] Pulse Rate [ Standing] Respiratory 20 20 18 Rate Blood Pressure 125/76 140/93 Blood Pressure [Left side Supine] Blood Pressure [Sitting] Blood Pressure [Standing] O2 Sat by Pulse 97 Oximetry (%) 09/21/18 13:54 Temperature 98.2 F Pulse Rate 68 Pulse Rate [ Left side Supine] Pulse Rate [ Sitting] Pulse Rate [ Standing] Respiratory 18 Rate Blood Pressure 135/85 Blood Pressure [Left side Supine] Blood Pressure [Sitting] Blood Pressure [Standing] O2 Sat by Pulse Oximetry (%) Current Medications Generic Name Dose Route Start Last Admin Trade Name Freq PRN Reason Stop Dose Admin Acetaminophen 650 mg 09/21/18 10:48 Tylenol - PO Q6H PRN FEVER Levothyroxine Sodium 25 mcg 09/22/18 07:00 Synthroid - PO DAILY@0700 MARIANA Metoprolol Succinate 50 mg 09/21/18 22:00 Toprol Xl - PO BID [facility] Laboratory Results - last 24 hr 09/21/18 09/21/18 06:40 06:40 PT with INR 38.70 H INR 3.24 H Sodium 135 L Potassium 4.8 Chloride 104 Carbon Dioxide 22 Anion Gap 9 BUN 44 H Creatinine 3.1 H Creat Clearance w eGFR 20.73 Random Glucose 119 H Calcium 9.0 Total Bilirubin 1.0 AST 850 H ALT 1354 H Alkaline Phosphatase 121 H Total Protein 7.6 Albumin 4.4 S1 Ss irregular Lungs decreased Abd-soft, obese, NT no edema No JVD PLAN LFT rising, liver sono unremarkable, check hepatitis serology Will consult GI renal function worsening- pt has been off Bactrim DS since 09/19/18, not on Lasix-renal renal shows left kidny to be atrophic- will consult Nephrology Hold Coumadin - INR still elevated dc Tele per Cardiology LFT worsening can be due to Amiodarone Problem List - Problems (1) Elevated LFTs Code(s): R94.5 - ABNORMAL RESULTS OF LIVER FUNCTION STUDIES (2) LIANNE (acute kidney injury) Code(s): N17.9 - ACUTE KIDNEY FAILURE, UNSPECIFIED (3) Hyperkalemia Code(s): E87.5 - HYPERKALEMIA (4) Supratherapeutic INR Code(s): R79.1 - ABNORMAL COAGULATION PROFILE (5) AF (paroxysmal atrial fibrillation) Code(s): I48.0 - PAROXYSMAL ATRIAL FIBRILLATION (6) Abdominal pain Code(s): R10.9 - UNSPECIFIED ABDOMINAL PAIN
--- NOTE | 2018-09-21 09:41 | PN ---
Progress Note, Physician History of Present Illness: Continues to feel lightheaded and diaphoretic when standing and walking Dyspnea going from bathroom to bed Tele: Discontinued - Current Medication List Current Medications: Active Medications Acetaminophen (Tylenol -) 650 mg PO Q6H PRN PRN Reason: FEVER Amiodarone HCl (Cordarone -) 200 mg PO DAILY [facility] Last Admin: 09/21/18 09:12 Dose: 200 mg Levothyroxine Sodium (Synthroid -) 25 mcg PO DAILY@0700 [facility] Last Admin: 09/21/18 06:33 Dose: 25 mcg Metoprolol Succinate (Toprol Xl -) 50 mg PO BID [facility] Last Admin: 09/21/18 09:12 Dose: 50 mg - Objective Vital Signs: Vital Signs Temperature 98.9 F 09/21/18 06:00 Pulse Rate 61 09/21/18 06:00 Respiratory Rate 20 09/21/18 06:00 Blood Pressure 123/74 09/21/18 06:00 O2 Sat by Pulse Oximetry (%) 97 09/20/18 20:15 Constitutional: Yes: No Distress Eyes: Yes: WNL HENT: Yes: WNL Neck: Yes: WNL Cardiovascular: Yes: Regular Rate and Rhythm Respiratory: Yes: CTA Bilaterally Gastrointestinal: Yes: Normal Bowel Sounds Musculoskeletal: Yes: WNL, Muscle Weakness Edema: No Labs: CBC, BMP 09/20/18 08:15 09/21/18 06:40 INR, PTT INR 3.24 (0.83-1.09) H 09/21/18 06:40 Assessment/Plan a/p: 56 m hx syst chf (nicm, non obs cad on cath 2007 and 2014), icd ([employer]), VF s/p icd shocks 07/2014 and this month 05/2017, dvt? , hld, htn, cva/tia's, ckd who p/w presyncope/sob weakness/dizziness/shakiness, transaminitis, elevated TSH (6), LIANNE: - sx's upon position change--check orthostatics - ? amio contributing to hi TSH--treat if indicated, per pmd (stable vs 12/25 outpt labs) - As per Dr. Penaloza: rec w/u for liver dz and if no etiology found, will need EP input regarding d/c amio--? substitute another med, ? attempt VT ablation (d/w' d dr pizano) -AST/ALT continue to rise - 850/1354 today. INR down to 3 - sx's not c/w arrhythmia--now off tele -Please check orthostatic BP today Ventricular fibrillation with ICD shock 05/2017: - per d/w EP at that time, pt started on amio (to remain on 200 qd retirement for maintenance) - cont amio 200 qd until liver w/u complete--as above nonisch CMP: - severe LV hypokinesis, no signif valve dysfunction/pulm HTN on prior echoes - bp's soft--cont home metopr succ 50 bid if remains stable - hold lisinopril for now given LIANNE with K 6.0 on admit, remains mildly elevated - CXR clear. BNP 1500 (ranges 1K-2K), low GFR. appears euvolemic--no diuresis -09/21 Euvolemic, no CHF - no diuresis in setting of rising sCreat now 3 HTN: - bp initially 90s - observe closely, holding VALDO (LIANNE, hyperK), continuing metopr as bp tolerates -09/21: BP 123/74 - continue current regimen CKD: - stable at baseline h/o CVA: - dr paniagua's notes reviewed--no prior documented afib but treated with warfarin for CVA with very low EF - cont same, INR goal 2-3 (hi here--holding for now) - hold statin while AST/LT high LIANNE on CKD: - baseline creat approx 1.5 - creat up here, now 3. - Would suggest renal consultation
[2018-09-21] MEDS ORDERED: AMIODARONE HCL 200 MG TABLET (FP) PO SCH (10:00)
[2018-09-21] MEDS ORDERED: ACETAMINOPHEN 325 MG TABLET (FP) PO PRN (10:48)
--- NOTE | 2018-09-21 14:24 | CON.GI ---
Consult Consult Specialty:: GI Referred by:: Dr Mavis Juarez Reason for Consultation:: abnl LFTs - History of Present Illness Chief Complaint: 58 y.o. M, recently treated with Keflex and Bactrim for perianal abscess, now admtted to hospital with supratherapeutic INR and aminotransferases in the 300s. Warfarin has been held as well as the antibiotics and the INR has come down but the aminotransferases have continued to rise through today. Bilirubin has been normal. 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 Cardio/Vascular: Yes: AFIB, HTN, Hyperlipdemia, Other (nonischemic cardiomyopathy--status post AICD) Renal/: Yes: Renal Inusuff (CKD) - Past Surgical History Past Surgical History: Yes: AICD - Alcohol/Substance Use Hx Alcohol Use: No - Smoking History Smoking history: Never smoked Have you smoked in the past 12 months: No Aproximately how many cigarettes per day: 0 Home Medications - Allergies Allergies/Adverse Reactions: Allergies Allergy/AdvReac Type Severity Reaction Status Date / Time No Known Allergies Allergy Verified 09/10/18 11:46 - Home Medications Home Medications: Ambulatory Orders Lisinopril [Prinivil] 10 mg PO DAILY 07/16/13 Atorvastatin Ca [Lipitor] 20 mg PO HS 05/29/17 Acetaminophen [Tylenol .Regular Strength -] 650 mg PO Q6H PRN tablet 05/31/17 Metoprolol Succinate [Toprol XL -] 50 mg PO DAILY 30 Days #30 tab.sr.24h Amiodarone HCl [Cordarone -] 400 mg PO BID #60 tab 06/11/17 Warfarin Na [Coumadin -] 5 mg PO DAILY@1800 06/18/17 Cephalexin Monohydrate [Keflex -] 500 mg PO Q6H #40 capsule 09/10/18 Sulfamethoxazole/Trimethoprim [Bactrim Ds -] 2 tab PO BID #40 tablet 09/10/18 Physical Exam-GI Vital Signs: Vital Signs Temperature 98.2 F 09/21/18 13:54 Pulse Rate 68 09/21/18 13:54 Respiratory Rate 18 09/21/18 13:54 Blood Pressure 135/85 09/21/18 13:54 O2 Sat by Pulse Oximetry (%) 97 09/21/18 09:00 Gastrointestinal Inspection: Yes: WNL Labs: CBC, BMP 09/20/18 08:15 09/21/18 06:40 INR, PTT INR 3.24 (0.83-1.09) H 09/21/18 06:40 Imaging - Results Ultrasound: Report Reviewed Problem List - Problems (1) Elevated LFTs Code(s): R94.5 - ABNORMAL RESULTS OF LIVER FUNCTION STUDIES Assessment/Plan CMP Sodium 135 mmol/L (136-145) L 09/21/18 06:40 Potassium 4.8 mmol/L (3.5-5.1) 09/21/18 06:40 Chloride 104 mmol/L (98-107) 09/21/18 06:40 Carbon Dioxide 22 mmol/L (21-32) 09/21/18 06:40 Anion Gap 9 MMOL/L (8-16) 09/21/18 06:40 BUN 44 mg/dL (7-18) H 09/21/18 06:40 Creatinine 3.1 mg/dL (0.55-1.3) H 09/21/18 06:40 Creat Clearance w eGFR 20.73 (>60) 09/21/18 06:40 Random Glucose 119 mg/dL (74-106) H 09/21/18 06:40 Calcium 9.0 mg/dL (8.5-10.1) 09/21/18 06:40 Phosphorus 4.0 mg/dL (2.5-4.9) 09/19/18 14:44 Magnesium 2.3 mg/dL (1.8-2.4) 09/19/18 14:43 Total Bilirubin 1.0 mg/dL (0.2-1) 09/21/18 06:40 Direct Bilirubin 0.1 mg/dL (0.0-0.2) 09/20/18 08:15 AST 850 U/L (15-37) H 09/21/18 06:40 ALT 1354 U/L (13-61) H 09/21/18 06:40 Alkaline Phosphatase 121 U/L (45-117) H 09/21/18 06:40 Troponin I 0.02 ng/ml (0.00-0.05) 09/19/18 14:44 B-Natriuretic Peptide 1571.4 pg/ml (5-125) H 09/19/18 14:44 Total Protein 7.6 g/dl (6.4-8.2) 09/21/18 06:40 Albumin 4.4 g/dl (3.4-5.0) 09/21/18 06:40 TSH 4.75 uIU/ml (0.358-3.74) H D 09/20/18 08:15 The continued rise in AST and ALT are worrisome and I would not discharge the patient until it is clear that they are coming down again. The AST and ALT were already over 100 on 09/10/18 when he came to the ER and that was before he received any antibiotic, so we cannot blame this on his antibiotics. 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 I will temporarily discontinue amiodarone; also obtain immune serologies.
[2018-09-21] MEDS ORDERED: SODIUM CHLORIDE 1,000 ML IV SCH (18:45)
--- NOTE | 2018-09-21 20:56 | CON.NEP ---
Consult Consult Specialty:: nephrology Referred by:: gareth pizano Reason for Consultation:: renal failure - History of Present Illness Chief Complaint: dizziness, abnormal liver enzymes History of Present Illness: admitted with generalized complaints weakness and dizziness worse on standing no sig change in BP orthostatic on warfarin, had supratherapeutic INRs and elevated LFT recently treated with abx for rectal abscess he had brief diarrhea which has resolved some nausea no current vomiting AFIB, HTN, Hyperlipdemia nonischemic cardiomyopathy--status post AICD Renal Inusuff (CKD) CVA/TIA h/o VF with shocks - Past Medical History 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 Cardio/Vascular: Yes: AFIB, HTN, Hyperlipdemia, Other (nonischemic cardiomyopathy--status post AICD) Renal/: Yes: Renal Inusuff (CKD) - Past Surgical History Past Surgical History: Yes: AICD - Alcohol/Substance Use Hx Alcohol Use: No - Smoking History Smoking history: Never smoked Have you smoked in the past 12 months: No Aproximately how many cigarettes per day: 0 Home Medications - Allergies Allergies/Adverse Reactions: Allergies Allergy/AdvReac Type Severity Reaction Status Date / Time No Known Allergies Allergy Verified 09/10/18 11:46 - Home Medications Home Medications: Ambulatory Orders Lisinopril [Prinivil] 10 mg PO DAILY 07/16/13 Atorvastatin Ca [Lipitor] 20 mg PO HS 05/29/17 Acetaminophen [Tylenol .Regular Strength -] 650 mg PO Q6H PRN tablet 05/31/17 Metoprolol Succinate [Toprol XL -] 50 mg PO DAILY 30 Days #30 tab.sr.24h Amiodarone HCl [Cordarone -] 400 mg PO BID #60 tab 06/11/17 Warfarin Na [Coumadin -] 5 mg PO DAILY@1800 06/18/17 Cephalexin Monohydrate [Keflex -] 500 mg PO Q6H #40 capsule 09/10/18 Sulfamethoxazole/Trimethoprim [Bactrim Ds -] 2 tab PO BID #40 tablet 09/10/18 Nephrology Consult - Height Height: 6 ft - Weight Weight: 238 lb - BMI Body Mass Index (BMI): 32.3 - Lab Results CBC,BMP: CBC, BMP 09/20/18 08:15 09/21/18 06:40 Anion Gap: Anion Gap Anion Gap 9 MMOL/L (8-16) 09/21/18 06:40 - Physical Examination Vital Signs: Vital Signs Temperature 97.8 F 09/21/18 18:18 Pulse Rate 67 09/21/18 18:18 Respiratory Rate 20 09/21/18 18:18 Blood Pressure 119/75 09/21/18 18:18 O2 Sat by Pulse Oximetry (%) 97 09/21/18 09:00 Constitutional: Yes: Well Nourished, No Distress, Calm Eyes: Yes: WNL, Conjunctiva Clear, EOM Intact HENT: Yes: WNL, Atraumatic, Normocephalic Neck: Yes: WNL, Supple, Trachea Midline Cardiovascular: Yes: WNL, Regular Rate and Rhythm Respiratory: Yes: WNL, Regular, CTA Bilaterally Gastrointestinal: Yes: WNL, Normal Bowel Sounds Renal/: Yes: WNL Musculoskeletal: Yes: WNL Extremities: Yes: WNL Edema: No Integumentary: Yes: WNL Neurological: Yes: WNL, Alert, Oriented Psychiatric: Yes: WNL, Alert, Oriented Assessment/Plan CKD malaise transaminitis 2/2 amiodarone? Plan- will give some IVF for persistent orthostatism may have a degree of prerenal factors (lack of intake and loose bm)
[2018-09-22] MEDS: LEVOTHYROXINE NA 25 MCG TABLET (FP) PO SCH (06:03)
[2018-09-22 06:54] LABS: BASO % 1.5 % (0-2.0); EOS % 3.4 % (0-4.5); HEMATOCRIT 39.2 % (35.4-49); HEMOGLOBIN 12.8 GM/dL (11.7-16.9); LYMPH % 27.8 % (8-40); MCH 29.8 pg (25.7-33.7); MCHC 32.6 g/dl (32.0-35.9); MEAN CELL VOLUME 91.6 fl (80-96); MEAN PLT VOLUME 9.7 fl (7.5-11.1); MONO % 16.2 % (3.8-10.2); NEUT % 51.1 % (42.8-82.8); PLATELET COUNT 195 K/MM3 (134-434); RBC 4.28 M/mm3 (4.00-5.60); WHITE BLOOD COUNT 5.4 K/mm3 (4.0-10.0)
[2018-09-22 07:13] LABS: INR 2.32 (0.83-1.09); PROTHROMBIN TIME (PATIENT) 27.6 SEC (9.7-13.0)
[2018-09-22 07:40] LABS: ALBUMIN 3.5 g/dl (3.4-5.0); ALBUMIN 3.6 g/dl (3.4-5.0); ALK PHOS 101 U/L (45-117); ANION GAP 4 MMOL/L (8-16); BILIRUBIN,DIRECT 0.3 mg/dL (0.0-0.2); BILIRUBIN,TOTAL 0.8 mg/dL (0.2-1); BLOOD UREA NITROGEN 44 mg/dL (7-18); CALCIUM 8.3 mg/dL (8.5-10.1); CHLORIDE 108 mmol/L (98-107); CO2 23 mmol/L (21-32); CREATININE 2.4 mg/dL (0.55-1.3); GLUCOSE,RANDOM 103 mg/dL (74-106); POTASSIUM 5.1 mmol/L (3.5-5.1); SGOT/AST 561 U/L (15-37); SGPT/ALT 1049 U/L (13-61); SODIUM 135 mmol/L (136-145); TOT PROT 6.3 g/dl (6.4-8.2)
--- NOTE | 2018-09-22 09:37 | PN ---
Progress Note, Physician History of Present Illness: GI FOLLOW UP NOTE Patient examined lying in bed. Denies abdominal pain, nausea, vomiting, melena , or rectal bleeding. Recent labs show minor downtrend in LFTs but still severely elevated, AST 549, ALT 1051, and normal Alk phos 102. Abdominal US reviewed and shows no evidence of cholelithiasis, acute cholecystitis, no definite biliary tract dilation, and no obvious hepatic pathology. - Current Medication List Current Medications: Active Medications Acetaminophen (Tylenol -) 650 mg PO Q6H PRN PRN Reason: FEVER Sodium Chloride (Normal Saline -) 1,000 mls @ 75 mls/hr IV ASDIR [facility] Last Admin: 09/21/18 19:43 Dose: 75 mls/hr Levothyroxine Sodium (Synthroid -) 25 mcg PO DAILY@0700 [facility] Last Admin: 09/22/18 06:03 Dose: 25 mcg Metoprolol Succinate (Toprol Xl -) 50 mg PO BID [facility] Last Admin: 09/21/18 22:21 Dose: 50 mg - Objective Vital Signs: Vital Signs Temperature 98.4 F 09/22/18 06:15 Pulse Rate 61 09/22/18 06:15 Respiratory Rate 20 09/22/18 06:15 Blood Pressure 122/66 09/22/18 06:15 O2 Sat by Pulse Oximetry (%) 98 09/21/18 21:00 Constitutional: Yes: No Distress, Calm Eyes: Yes: Conjunctiva Clear HENT: Yes: Atraumatic Cardiovascular: Yes: Regular Rate and Rhythm Respiratory: Yes: Regular, CTA Bilaterally Gastrointestinal: Yes: Normal Bowel Sounds, Soft. No: WNL, Abdomen, Obese, Ascites, Distention, Hematemesis, Hemorrhoids, Hepatomegaly, Hernia, Hyperactive Bowel Sounds, Hypoactive Bowel Sounds, Melena, Palpable Mass, Pulsatile Mass, Rectal Bleeding, Splenomegaly, Tenderness, Tenderness, Epigastrium, Tenderness, Rebound, Vomiting, Other Labs: CBC, BMP 09/22/18 06:10 09/22/18 06:10 INR, PTT INR 2.32 (0.83-1.09) H 09/22/18 06:10 Problem List - Problems (1) Elevated LFTs Assessment/Plan: R> most likely secondary to amiodarone >cardiology on board >monitor LFTs daily Code(s): R94.5 - ABNORMAL RESULTS OF LIVER FUNCTION STUDIES
[2018-09-22] MEDS ORDERED: AMIODARONE HCL 200 MG TABLET (FP) PO SCH (10:00)
--- NOTE | 2018-09-22 10:43 | EKG ---
Test Reason : Blood Pressure : / mmHG Vent. Rate : 065 BPM Atrial Rate : 065 BPM P-R Int : 236 ms QRS Dur : 136 ms QT Int : 412 ms P-R-T Axes : 050 -07 142 degrees QTc Int : 428 ms SINUS RHYTHM WITH 1ST DEGREE A-V BLOCK WITH OCCASIONAL PREMATURE VENTRICULAR COMPLEXES POSSIBLE LEFT ATRIAL ENLARGEMENT LEFT BUNDLE BRANCH BLOCK ABNORMAL ECG WHEN COMPARED WITH ECG OF 18-JUN-2017 09:18, PREMATURE VENTRICULAR COMPLEXES ARE NOW PRESENT LEFT BUNDLE BRANCH BLOCK IS NOW PRESENT CRITERIA FOR ANTEROSEPTAL INFARCT ARE NO LONGER PRESENT Confirmed by SHAD PADRON MD ([id number]) on 09/22/2018 10:43:30 AM Referred By: Confirmed By:SHAD PADRON MD
--- NOTE | 2018-09-22 11:43 | PN ---
Progress Note (short form) - Note Progress Note: Pt seen/ examined chart reviewed awake/ comfortable feels better all f/u noted discussed with Dr. Reese also today denies cp breathing ok denies abd pain lfts remain elevated Off Amiodarone Vital Signs Temp 98.4 F 09/22/18 06:15 Pulse 61 09/22/18 06:15 Resp 20 09/22/18 06:15 BP 122/66 09/22/18 06:15 Pulse Ox 98 09/21/18 21:00 Intake & Output 09/21/18 09/21/18 09/22/18 11:59 23:59 11:59 Intake Total 900 Balance 900 Weight 238 lb Intake: IV 900 Normal Saline - 1,000 ml 900 @ 75 mls/hr IV ASDIR [facility] Rx#:[id number] Other: Voiding Method Toilet Toilet Toilet # Unmeasured Voids Void 2 Bowel Movement No Height 6 ft Body Mass Index (BMI) 32.3 Active Medications Levothyroxine Sodium (Synthroid -) 25 mcg PO DAILY@0700 [facility] Last Admin: 09/22/18 06:03 Dose: 25 mcg Metoprolol Succinate (Toprol Xl -) 50 mg PO BID [facility] Last Admin: 09/22/18 09:49 Dose: 50 mg Warfarin Sodium (Coumadin -) 4 mg PO DAILY@1800 [facility] CBC, BMP 09/22/18 06:10 09/22/18 06:10 Physical Exam. Awake Comfortable S1 S2 irregular Lungs decreased Abd-soft, obese, NT no edema PLAN LFT elevated liver sono unremarkable, check hepatitis serology-- pending Likely due to Amiadarone -- Agree with D/C it GI consult noted renal function better d/c fluids avoid nephrotoxins d/c tylenol also restart coumadin -- lower dose. Monitor labs will follow Problem List - Problems (1) Elevated LFTs Code(s): R94.5 - ABNORMAL RESULTS OF LIVER FUNCTION STUDIES (2) LIANNE (acute kidney injury) Code(s): N17.9 - ACUTE KIDNEY FAILURE, UNSPECIFIED (3) Hyperkalemia Code(s): E87.5 - HYPERKALEMIA (4) Supratherapeutic INR Code(s): R79.1 - ABNORMAL COAGULATION PROFILE (5) AF (paroxysmal atrial fibrillation) Code(s): I48.0 - PAROXYSMAL ATRIAL FIBRILLATION (6) Abdominal pain Code(s): R10.9 - UNSPECIFIED ABDOMINAL PAIN
--- NOTE | 2018-09-22 13:26 | PN ---
Progress Note (short form) - Note Progress Note: Renal follow up for LIANNE on CKD Pt seen and examined at the bedside reproted some SOB/ROCK this am when walking to the bathroom making urine no orthopnea, PND Vital Signs Temperature 98.4 F 09/22/18 13:04 Pulse Rate 59 L 09/22/18 13:04 Respiratory Rate 18 09/22/18 13:04 Blood Pressure 128/77 09/22/18 13:04 O2 Sat by Pulse Oximetry (%) 99 09/22/18 09:00 Intake & Output 09/19/18 09/20/18 09/21/18 09/22/18 23:59 23:59 23:59 23:59 Intake Total 510 900 Balance 510 900 Weight 107.955 kg 107.955 kg NAD awake and alert neck supple, no JVD irregular no M/R no LE edema CBC, BMP 09/22/18 06:10 09/22/18 06:10 Current Medications Levothyroxine Sodium (Synthroid -) 25 mcg PO DAILY@0700 [facility] Last Admin: 09/22/18 06:03 Dose: 25 mcg Metoprolol Succinate (Toprol Xl -) 50 mg PO BID [facility] Last Admin: 09/22/18 09:49 Dose: 50 mg Warfarin Sodium (Coumadin -) 4 mg PO DAILY@1800 [facility] 58 year old gentleman with hx of CKD (baseline Cr 1.5), Afib on Coumadin, CHF (EF 25%), AICD, Hypertension, Hypelipidemia presented with weakness and dizziness and found to have LIANNE. #LIANNE likely due to renal hypoprofusion vs. normotensive ATN #CHF #Dizziness #Afib on Coumadin Renal function with mild improvement after IVF, expect to gradually improve over time no overt fluid overload noted will discontinue IVF at this time given mild sob continue to hold ACEi for now continue to trend LFTs trend renal function daily Elkin Reese DO
--- NOTE | 2018-09-22 14:49 | PN ---
Progress Note (short form) - Note Progress Note: s: no chest pain, palps, dizziness. improving dyspnea. Current Medications Levothyroxine Sodium (Synthroid -) 25 mcg PO DAILY@0700 [facility] Last Admin: 09/22/18 06:03 Dose: 25 mcg Metoprolol Succinate (Toprol Xl -) 50 mg PO BID [facility] Last Admin: 09/22/18 09:49 Dose: 50 mg Warfarin Sodium (Coumadin -) 4 mg PO DAILY@1800 [facility] Vital Signs Period Temp Pulse Resp BP Sys/Palmer Pulse Ox Last 24 Hr 97.8 F-98.6 F 59-73 18-20 118-138/66-95 98-99 Constitutional: Yes: No Distress Eyes: Yes: WNL HENT: Yes: WNL Neck: Yes: WNL Cardiovascular: Yes: Regular Rate and Rhythm Respiratory: Yes: CTA Bilaterally Gastrointestinal: Yes: Normal Bowel Sounds Musculoskeletal: Yes: WNL, Muscle Weakness Edema: No Assessment/Plan a/p: 56 m hx syst chf (nicm, non obs cad on cath 2007 and 2014), icd ([facility]), VF s/p icd shocks 07/2014 and this month 05/2017, dvt? , hld, htn, cva/tia's, ckd who p/w presyncope/sob weakness/dizziness/shakiness, transaminitis, elevated TSH (6), LIANNE: - sx's upon position change--check orthostatics - ? amio contributing to hi TSH--treat if indicated, per pmd (stable vs 12/25 outpt labs) - As per Dr. Penaloza: rec w/u for liver dz and if no etiology found, will need EP input regarding d/c amio--? substitute another med, ? attempt VT ablation (d/w' d dr pizano) - GI evaluated - now off amiodarone, likely hepatoxicity 07/12 amiodarone - monitor LFTs Ventricular fibrillation with ICD shock 05/2017: - per d/w EP at that time, pt started on amio (to remain on 200 qd [facility] for maintenance) - holding amiodarone for now, monitoring LFTs nonisch CMP: - severe LV hypokinesis, no signif valve dysfunction/pulm HTN on prior echoes - bp's soft--cont home metopr succ 50 bid if remains stable - hold lisinopril for now given LIANNE with K 6.0 on admit, remains mildly elevated - CXR clear. BNP 1500 (ranges 1K-2K), low GFR. appears euvolemic--no diuresis HTN: - bp initially 90s - observe closely, holding VALDO (LIANNE, hyperK), continuing metopr as bp tolerates CKD: - stable at baseline h/o CVA: - dr paniagua's notes reviewed--no prior documented afib but treated with warfarin for CVA with very low EF - cont same, INR goal 2-3 (hi here--holding for now) - hold statin while AST/LT high LIANNE on CKD: - renal following
[2018-09-22] MEDS ORDERED: WARFARIN NA 2 MG TABLET (UD) PO SCH (18:00)
[2018-09-23 01:11] LABS: HBSAG SCREEN Negative (Negative); HEP B CORE AB, TOT Negative (Negative)
[2018-09-23] MEDS: LEVOTHYROXINE NA 25 MCG TABLET (FP) PO SCH (06:27)
[2018-09-23 06:45] VITALS: TEMP 98.3
[2018-09-23 08:16] LABS: BASO % 2.1 % (0-2.0); EOS % 3.3 % (0-4.5); HEMATOCRIT 38.1 % (35.4-49); HEMOGLOBIN 12.6 GM/dL (11.7-16.9); MCH 30.3 pg (25.7-33.7); MCHC 33.1 g/dl (32.0-35.9); MEAN CELL VOLUME 91.4 fl (80-96); MEAN PLT VOLUME 9.3 fl (7.5-11.1); MONO % 12.6 % (3.8-10.2); PLATELET COUNT 200 K/MM3 (134-434); RBC 4.17 M/mm3 (4.00-5.60); RDW 12.9 % (11.9-15.9); WHITE BLOOD COUNT 5.1 K/mm3 (4.0-10.0)
[2018-09-23 08:33] LABS: ALBUMIN 3.5 g/dl (3.4-5.0); ALK PHOS 99 U/L (45-117); ANION GAP 7 MMOL/L (8-16); BILIRUBIN,TOTAL 0.7 mg/dL (0.2-1); BLOOD UREA NITROGEN 33 mg/dL (7-18); CALCIUM 8.9 mg/dL (8.5-10.1); CHLORIDE 110 mmol/L (98-107); CO2 20 mmol/L (21-32); CREATININE 2.1 mg/dL (0.55-1.3); GLUCOSE,RANDOM 110 mg/dL (74-106); MAGNESIUM 2.1 mg/dL (1.8-2.4); PHOSPHOROUS 3.2 mg/dL (2.5-4.9); POTASSIUM 4.7 mmol/L (3.5-5.1); SGOT/AST 343 U/L (15-37); SGPT/ALT 780 U/L (13-61); SODIUM 138 mmol/L (136-145); TOT PROT 6.1 g/dl (6.4-8.2)
[2018-09-23 10:54] VITALS: BP 120/60; PULSE 55
--- NOTE | 2018-09-23 12:07 | PN ---
Progress Note (short form) - Note Progress Note: Renal follow up for LIANNE on CKD Pt seen and examined at the bedside awake and alert denies any sob, [place] or orthopnea tolerating oral diet making urine Vital Signs Temperature 98.3 F 09/23/18 10:00 Pulse Rate 55 L 09/23/18 10:00 Respiratory Rate 20 09/23/18 10:00 Blood Pressure 120/60 09/23/18 10:00 O2 Sat by Pulse Oximetry (%) 99 09/22/18 21:00 Intake & Output 09/20/18 09/21/18 09/22/18 09/23/18 23:59 23:59 23:59 23:59 Intake Total 510 1500 300 Balance 510 1500 300 Weight 107.955 kg NAD awake and alert neck supple, no JVD irregular no M/R no LE edema CBC, BMP 09/23/18 07:30 09/23/18 07:30 Current Medications Levothyroxine Sodium (Synthroid -) 25 mcg PO DAILY@0700 [facility] Last Admin: 09/23/18 06:27 Dose: 25 mcg Metoprolol Succinate (Toprol Xl -) 50 mg PO BID [facility] Last Admin: 09/23/18 10:10 Dose: 50 mg Warfarin Sodium (Coumadin -) 4 mg PO DAILY@1800 [facility] Last Admin: 09/22/18 17:45 Dose: 4 mg 58 year old gentleman with hx of CKD (baseline Cr 1.5), Afib on Coumadin, CHF (EF 25%), AICD, Hypertension, Hypelipidemia presented with weakness and dizziness and found to have LIANNE. #LIANNE likely due to renal hypoprofusion vs. normotensive ATN #CHF #Dizziness #Afib on Coumadin Renal function with gradual improvement no further need for IVF maintain off lisinopril for now will need repeat labs in 3-5 days contact information provided so pt can follow up in our office stable for discharge with outpatient monitoring Elkin Reese DO
--- NOTE | 2018-09-23 12:08 | PN.GI ---
GI Progress Note Subjective: No acute events sitting up eating lunch No abdominal pain - Objective Vital Signs: Vital Signs Temperature 98.3 F 09/23/18 10:00 Pulse Rate 55 L 09/23/18 10:00 Respiratory Rate 20 09/23/18 10:00 Blood Pressure 120/60 09/23/18 10:00 O2 Sat by Pulse Oximetry (%) 99 09/22/18 21:00 Constitutional: Calm Eyes: No: Sclera Icterus Cardiovascular: Yes: Bradycardia (regular rhythm) Respiratory: Yes: CTA Bilaterally Gastrointestinal Inspection: No: Distention ...Auscultate: Yes: Normoactive Bowel Sounds ...Palpate: Yes: Soft. No: Hepatomegaly, Splenomegaly, Tenderness Edema: No (No LE edema) Neurological: Yes: Alert Labs: CBC, BMP 09/23/18 07:30 09/23/18 07:30 INR, PTT INR 2.32 (0.83-1.09) H 09/22/18 06:10 Laboratory Tests 09/22/18 06:10 Hepatitis A Ab Total Negative Hep Bs Antigen Negative Hep Bs Antibody Non reactive Hep B Core Total Ab Negative HCV Quantitation Pending Hepatic Panel Total Bilirubin 0.7 mg/dL (0.2-1) 09/23/18 07:30 Direct Bilirubin 0.3 mg/dL (0.0-0.2) H 09/22/18 06:10 AST 343 U/L (15-37) H 09/23/18 07:30 ALT 780 U/L (13-61) H 09/23/18 07:30 Alkaline Phosphatase 99 U/L (45-117) 09/23/18 07:30 Albumin 3.5 g/dl (3.4-5.0) 09/23/18 07:30 Assessment/Plan Transaminitis: Amiodarone has been held LFT's improving Hepatitis serologies negative to date. HCV quantitation pending. No high risk behaviors Advised avoidance of alcohol and acetaminophen Close outpatient monitoring of LFTS
--- NOTE | 2018-09-23 12:31 | PN ---
Progress Note (short form) - Note Progress Note: s: no chest pain, palps, dizziness, dyspnea Current Medications Levothyroxine Sodium (Synthroid -) 25 mcg PO DAILY@0700 [facility] Last Admin: 09/23/18 06:27 Dose: 25 mcg Metoprolol Succinate (Toprol Xl -) 50 mg PO BID [facility] Last Admin: 09/23/18 10:10 Dose: 50 mg Warfarin Sodium (Coumadin -) 4 mg PO DAILY@1800 [facility] Last Admin: 09/22/18 17:45 Dose: 4 mg Vital Signs Period Temp Pulse Resp BP Sys/Palmer Pulse Ox Last 24 Hr 98 F-98.4 F 54-59 18-20 107-135/60-78 99 Constitutional: Yes: No Distress Eyes: Yes: WNL HENT: Yes: WNL Neck: Yes: WNL Cardiovascular: Yes: Regular Rate and Rhythm Respiratory: Yes: CTA Bilaterally Gastrointestinal: Yes: Normal Bowel Sounds Musculoskeletal: Yes: WNL, Muscle Weakness Edema: No Assessment/Plan a/p: 56 m hx syst chf (nicm, non obs cad on cath 2007 and 2014), icd ([facility] [facility]), VF s/p icd shocks 07/2014 and this month 05/2017, dvt? , hld, htn, cva/tia's, ckd who p/w presyncope/sob weakness/dizziness/shakiness, transaminitis, elevated TSH (6), LIANNE: - sx's upon position change--check orthostatics - ? amio contributing to hi TSH--treat if indicated, per pmd (stable vs 12/25 outpt labs) - GI evaluated - now off amiodarone, likely hepatoxicity 07/12 amiodarone - monitor LFTs, improving Ventricular fibrillation with ICD shock 05/2017: - per d/w EP at that time, pt started on amio ([facility]) - holding amiodarone for now, monitoring LFTs, improving now. - may need discussion with EP regarding alternate medication for VT, consider ablation - has outpatient follow up with Dr. Paniagua next week - stable for dc from cardiac perspective nonisch CMP: - severe LV hypokinesis, no signif valve dysfunction/pulm HTN on prior echoes - bp's soft--cont home metopr succ 50 bid if remains stable - hold lisinopril for now given LIANNE with K 6.0 on admit, remains mildly elevated - CXR clear. BNP 1500 (ranges 1K-2K), low GFR. appears euvolemic--no diuresis HTN: - bp initially 90s - observe closely, holding VALDO (LIANNE, hyperK), continuing metopr as bp tolerates CKD: - stable at baseline h/o CVA: - dr paniagua's notes reviewed--no prior documented afib but treated with warfarin for CVA with very low EF - cont same, INR goal 2-3 (hi here--holding for now) - hold statin while AST/LT high LIANNE on CKD: - renal following
--- NOTE | 2018-09-23 12:32 | DS ---
Physical Examination Vital Signs: Vital Signs Temperature 98.3 F 09/23/18 10:00 Pulse Rate 55 L 09/23/18 10:00 Respiratory Rate 20 09/23/18 10:00 Blood Pressure 120/60 09/23/18 10:00 O2 Sat by Pulse Oximetry (%) 99 09/22/18 21:00 Constitutional: Yes: No Distress, Calm Cardiovascular: Yes: Pulse Irregular Respiratory: Yes: CTA Bilaterally Gastrointestinal: Yes: Normal Bowel Sounds, Soft, Abdomen, Obese. No: Tenderness Edema: No Labs: CBC, BMP 09/23/18 07:30 09/23/18 07:30 Discharge Summary Reason For Visit: LIANNE,SUPRATHERAPEUTIC INTERNA. NORMALIZED INR Current Active Problems LIANNE (acute kidney injury) (Acute) Elevated LFTs (Acute) Hyperkalemia (Acute) Supratherapeutic INR (Acute) Hospital Course: HISTORY - Primary Care Physician PCP: Sulma Acevedo - Admission Chief Complaint: weakness History of Present Illness: ER HISTORY - HPI HPI: 09/19/18 15:12 The patient is a 58 year old male, with a significant PMH of afib (on Coumadin) , cardiomyopathy (s/p AICD), HTN, and HLD who presents to the emergency department with generalized weakness and dizziness. The patient states he woke up this morning and felt his arms shaking, was nauseous and lightheaded. The patient notes these symptoms are similar to his prior symptoms when he had blood problems. The patient states he was recently admitted and discharged from [facility] for perianal abscess. The patient notes he has a follow up with his PCP, Dr. Acevedo, on 09/25/18. The patient denies chest pain, shortness of breath, or headache. The patient denies fever, chills, diarrhea or constipation. The patient denies dysuria, frequency, urgency or hematuria. Allergies: NKDA Surgical History: ICD placement Social History: None reported. PCP: Dr. Acevedo Pt examined by me in Telemetry states he feels weak and unsteady-- but better than yesterday no SOB , chest pain , palpitations No abd pain was recently in ER for perianal abscess -- was on keflex and bactrim DS x 10 days - no further drainage, no pain on admission , noted his INR to be elevated with worsening renal function and hyperkalemia,elevated LFT Received kayexalate, sodium bicarb baseline creatinine 2.2 Hospital Course LFT continued to get elevated , ultrasound liver unremarkable Renal function worsening-- renal sono showed left atrophied kidney GI and Nephrology were consulted hepatitis panel negative, work up for autoimmune hepatitis pending Cardiology evaluated pt-- LFT worsening and hypothyroidism due to amiodarone Amiodarone discontinued pt started on Synthroid LFT trending down, continued to improve renal function better after a short trial of iv fluids and discontinuing Lisinopril Pt feels better Ambulating without problems no dizziness or SOB stable for dc home-- will need to follow up with PMD for labs-- obtain INR, TSH , LFT and renal function Follow up with [employer]elesales specialist concerning amiodarone Condition: Stable - Instructions Referrals: Juan José Metzger DO [Staff Physician] - Dae Penaloza MD [Staff Physician] - Mavis Juarez MD [Staff Physician] - Elkin Reese MD [Staff Physician] - Disposition: HOME - Home Medications Comprehensive Discharge Medication List: Ambulatory Orders Lisinopril [Prinivil] 10 mg PO DAILY 07/16/13 Atorvastatin Ca [Lipitor] 20 mg PO HS 05/29/17 Acetaminophen [Tylenol .Regular Strength -] 650 mg PO Q6H PRN tablet 05/31/17 Metoprolol Succinate [Toprol XL -] 50 mg PO DAILY 30 Days #30 tab.sr.24h Amiodarone HCl [Cordarone -] 400 mg PO BID #60 tab 06/11/17 Warfarin Na [Coumadin -] 5 mg PO DAILY@1800 06/18/17 Cephalexin Monohydrate [Keflex -] 500 mg PO Q6H #40 capsule 09/10/18 Sulfamethoxazole/Trimethoprim [Bactrim Ds -] 2 tab PO BID #40 tablet 09/10/18
[2018-09-23 13:06] LABS: INR 1.79 (0.83-1.09); PROTHROMBIN TIME (PATIENT) 21.3 SEC (9.7-13.0)
[2018-09-25 17:13] LABS: SOLUBLE LIVER ANTIGEN ABS IgG 1.8 units (0.0-20.0)
== END 2018-09-23 13:55 | disposition home or self-care (01) | DRG 683 ==
LOC: JER 14:09 → JERBED 15:57 → J4W 23:18 → OBSVTOIN 09-21 09:52 → J5S 09-21 10:31
PROVIDERS: ADMIT Internal Medicine; ATTEND Internal Medicine
DX: N17.9 Acute kidney failure, unspecified (principal); I42.8 Other cardiomyopathies; E87.5 Hyperkalemia; I48.0 Paroxysmal atrial fibrillation; E78.5 Hyperlipidemia, unspecified; R10.9 Unspecified abdominal pain; R79.1 Abnormal coagulation profile; R94.5 Abnormal results of liver function studies; R42 Dizziness and giddiness; I12.9 Hypertensive chronic kidney disease with stage 1 through stage 4 chronic kidney disease, or unspecified chronic kidney disease; N18.9 Chronic kidney disease, unspecified; Z95.810 Presence of automatic (implantable) cardiac defibrillator; Z86.73 Personal history of transient ischemic attack (TIA), and cerebral infarction without residual deficits; Z79.01 Long term (current) use of anticoagulants
CPT/HCPCS: 36415; 71045-TC-FY; 76700-TC; 76856-TC; 80048; 80053; 80076; 81003; 83036; 83516; 83735; 83880; 84100; 84443; 84484; 85025; 85610; 85730; 86038; 86376; 86704; 86706; 86708; 87086; 87340; 87522; 93005; 93010; 99285-25; G0378; J7030

== ENCOUNTER 2019-03-17 08:31 | Inpatient (IN) | payer OTHER ==
--- NOTE | 2019-03-17 09:35 | PDOC ---
History of Present Illness - General Chief Complaint: Shortness of Breath Stated Complaint: SOB W/PRODUCTIVE COUGH Time Seen by Provider: 03/17/19 09:12 History Source: Patient Exam Limitations: No Limitations - History of Present Illness Initial Comments: 03/17/19 09:45 58M with PMH Afib (Coumadin), Cardiomyopathy-AICD ([employer]), HTN, HLD , CKD, CVA presenting to ED with complaints of SOB and cough for the past 4-5d. Cough is productive of white phlegm. Patient states that he feels more short of breath when laying down, not with exertion or sitting up. Also endorses night sweats and chills. Denies fever, chest pain, headache, abdominal pain, n/v/d, back pain, urinary symptoms, leg swelling. Denies recent hospitalizations or antibiotic use, recent surgeries, recent travel, sick contacts. Echo 05/2017: LVEF 25-30 with global hypokinesia Cath 2015: non obstructive CAD PMD: Curtis Cards: Trisha PMH: see hpi PSH: see hpi Meds: see med rec Allergies: nkda Past History - Past Medical History Allergies/Adverse Reactions: Allergies Allergy/AdvReac Type Severity Reaction Status Date / Time No Known Allergies Allergy Verified 03/17/19 09:32 Home Medications: Ambulatory Orders Metoprolol Succinate [Toprol XL -] 50 mg PO DAILY 30 Days #30 tab.sr.24h Warfarin Na [Coumadin -] 5 mg PO DAILY@1800 06/18/17 Levothyroxine [Synthroid -] 25 mcg PO DAILY@0700 #30 tablet 09/23/18 Cardiac Disorders: Yes (cardiomyopathy; mural thrombus, defibrilator) CVA: Yes COPD: No HTN: Yes Hypercholesterolemia: Yes - Surgical History Cardiac Surgery: Yes (ICD) - Immunization History Immunization Up to Date: Yes - Psycho Social/Smoking Cessation Hx Smoking Status: No Smoking History: Never smoked Have you smoked in the past 12 months: No Number of Cigarettes Smoked Daily: 0 Information on smoking cessation initiated: No Hx Alcohol Use: No Drug/Substance Use Hx: No Substance Use Type: Alcohol Hx Substance Use Treatment: No Review of Systems - Review of Systems Constitutional: No: Chills, Fever, Weakness HEENTM: No: Symptoms Reported Respiratory: Yes: Cough, Orthopnea, Shortness of Breath Cardiac (ROS): No: Symptoms Reported ABD/GI: No: Symptoms Reported : No: Symptoms Reported Integumentary: No: Symptoms Reported Neurological: No: Symptoms reported *Physical Exam - Vital Signs Last Vital Signs Temp Pulse Resp BP Pulse Ox 98 H 16 156/104 H 97 03/17/19 08:35 03/17/19 08:35 03/17/19 08:35 03/17/19 08:35 - Physical Exam General Appearance: Yes: Nourished, Appropriately Dressed. No: Apparent Distress HEENT: positive: EOMI, CHAVEZ, Normal ENT Inspection Neck: positive: Trachea midline, Supple. negative: Lymphadenopathy (R), Lymphadenopathy (L) Respiratory/Chest: positive: Lungs Clear, Normal Breath Sounds. negative: Crackles, Rales, Rhonchi, Stridor, Wheezing Cardiovascular: positive: Regular Rhythm, Regular Rate, S1, S2. negative: Edema , JVD, Murmur Vascular Pulses: Dorsalis-Pedis (R): 2+, Doralis-Pedis (L): 2+ Gastrointestinal/Abdominal: positive: Normal Bowel Sounds, Soft. negative: Tender Musculoskeletal: negative: CVA Tenderness Extremity: positive: Normal Capillary Refill. 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 vitals: hypertenstion, saturating well on RA, normocardic. ddx includes but not limited to chf, acs, pna, ptx, pe, dissection, carditis low suspicion for PE (sob is positional, on Coumadin). upon examination, patient would be tachypneic and speak a few words before needing a breath when laying supine. echo 05/2017: lvef 25-30, global hk, nl rv, mild ar, rvsp 30-40 echo 08/2015: mod lve, mod-sev dec lvef, global hk, nl rv, mild AR, mild ao root dil 4.3 cm cath 07/2014: non obs cad (only <30% pRCA). 03/17/19 11:17 Bedside US shows dilated LV with poor contractility elevated BNP. trop 0/05 likely 2/2 demand. no white count, Cr at baseline. INR therapeutic ekg: sinues with 1st degree block with PVCs. no jana or depressions, no signs of acute ischemia. similar to ekg done 09/2018. patient continues to be dysnpeic despite treatments. Last echo 2y ago. not on diuretics. given lasix iv. admitted to tele. Discharge - Discharge Information Problems reviewed: Yes Clinical Impression/Diagnosis: Heart failure Qualifiers: Heart failure type: unspecified Heart failure chronicity: unspecified Qualified Code(s): I50.9 - Heart failure, unspecified Condition: Stable - Admission Yes - Follow up/Referral - Patient Discharge Instructions - Post Discharge Activity
[2019-03-17 10:16] LABS: BASO % 1.4 % (0-2.0); EOS % 1.1 % (0-4.5); HEMATOCRIT 46.1 % (35.4-49); LYMPH % 24.1 % (8-40); MCH 29.6 pg (25.7-33.7); MCHC 32.5 g/dl (32.0-35.9); MEAN CELL VOLUME 91.2 fl (80-96); MEAN PLT VOLUME 11.2 fl (7.5-11.1); MONO % 12.4 % (3.8-10.2); PLATELET COUNT 220 K/MM3 (134-434); RBC 5.05 M/mm3 (4.00-5.60); RDW 13.2 % (11.9-15.9); WHITE BLOOD COUNT 7.1 K/mm3 (4.0-10.0)
[2019-03-17 10:20] LABS: EPI CELLS 2.2 /HPF (0-5/HPF); HYALINE CASTS 19 /lpf (0-8); PH,URINE 5.5 (5.0-8.0); URINE APPEARANCE CLEAR; URINE BACTERIA 0.5 /hpf (NEGATIVE); URINE BILIRUBIN 1+ (NEGATIVE); URINE COLOR DK YELLOW; URINE GLUCOSE (UA) NEGATIVE (NEGATIVE); URINE KETONE TRACE (NEGATIVE); URINE LEUK ESTERASE NEGATIVE (NEGATIVE); URINE NITRITE NEGATIVE (NEGATIVE); URINE PROTEIN 2+ (NEGATIVE); URINE RBC 3 /hpf (0-4); URINE WBC 2 /hpf (0-5)
[2019-03-17 10:22] LABS: INR 2.54 (0.83-1.09); PROTHROMBIN TIME (PATIENT) 30.2 SEC (9.7-13.0)
--- NOTE | 2019-03-17 10:35 | PDOC ---
Attending Attestation - Resident Resident Name: Vidya Cornejo - ED Attending Attestation I have performed the following: I have examined & evaluated the patient, The case was reviewed & discussed with the resident, I agree w/resident's findings & plan, Exceptions are as noted - HPI HPI: 03/17/19 10:33 58 M with h/o afib on coumadin, CM/AICD, HTN, HLD, CKD, CVA, CHF, presenting with SOB and cough x 5 days. Pt reports orthopnea but denies ROCK. States that he has had cough productive of white phlegm. Denies F/C. Denies CP. Denies abdominal pain. Pt denies any new leg swelling. No recent travel/immobilization. - Physicial Exam PE: 03/17/19 10:34 "GENERAL: Awake, alert, and fully oriented, in no acute distress. HEAD: No signs of trauma EYES: PERRLA, EOMI, sclera anicteric, conjunctiva clear ENT: Auricles normal inspection, hearing grossly normal, nares patent, oropharynx clear without exudates. Moist mucosa NECK: Nontender, no stepoffs, Normal ROM, supple, no lymphadenopathy, JVD, or masses LUNGS: Breath sounds equal, clear to auscultation bilaterally. No wheezes, and no crackles HEART: Regular rate and rhythm, normal S1 and S2, no murmurs, rubs or gallops ABDOMEN: Soft, nontender, normoactive bowel sounds. No guarding, no rebound. No masses EXTREMITIES: Normal range of motion, no edema. No clubbing or cyanosis. No cords, erythema, or tenderness NEUROLOGICAL: Cranial nerves II through XII intact. 5/5 strength and sensation in all extremities, Normal speech, normal gait, normal cerebellar function SKIN: Warm, Dry, normal turgor, no rashes or lesions noted. - Medical Decision Making 03/17/19 10:34 58 M with cough, SOB, orthopnea. Suspect CHF exacerbation. - Labs, trop, BNP - CXR
[2019-03-17 10:39] LABS: ALBUMIN 3.7 g/dl (3.4-5.0); BILIRUBIN,TOTAL 0.7 mg/dL (0.2-1); BLOOD UREA NITROGEN 20.6 mg/dL (7-18); CALCIUM 9.9 mg/dL (8.5-10.1); MAGNESIUM 2.2 mg/dL (1.8-2.4); POTASSIUM 4.6 mmol/L (3.5-5.1); TOT PROT 6.7 g/dl (6.4-8.2)
[2019-03-17 11:10] LABS: N-TERMINAL BNP 18213.6 pg/ml (5-125)
[2019-03-17] MEDS ORDERED: FUROSEMIDE 40 MG/4 ML INJECTABLE VIAL IVPUSH ONE (11:11)
[2019-03-17] MEDS ORDERED: FUROSEMIDE 40 MG/4 ML INJECTABLE VIAL ONE (11:24)
--- NOTE | 2019-03-17 12:19 | EKG ---
Test Reason : Blood Pressure : / mmHG Vent. Rate : 071 BPM Atrial Rate : 071 BPM P-R Int : 212 ms QRS Dur : 132 ms QT Int : 438 ms P-R-T Axes : 049 003 135 degrees QTc Int : 475 ms SINUS RHYTHM WITH 1ST DEGREE A-V BLOCK WITH OCCASIONAL PREMATURE VENTRICULAR COMPLEXES POSSIBLE LEFT ATRIAL ENLARGEMENT NON-SPECIFIC INTRA-VENTRICULAR CONDUCTION BLOCK T WAVE ABNORMALITY, CONSIDER LATERAL ISCHEMIA ABNORMAL ECG WHEN COMPARED WITH ECG OF 19-SEP-2018 14:22, T WAVE INVERSION MORE EVIDENT IN LATERAL LEADS QT HAS LENGTHENED Confirmed by Fahad Falcon ([id number]) on 03/17/2019 12:19:01 PM Referred By: Confirmed By:Fahad Falcon
--- NOTE | 2019-03-17 12:50 | HP ---
Admitting History and Physical - Primary Care Physician PCP: Mavis Juarez - Admission Chief Complaint: sob History of Present Illness: - History of Present Illness Initial Comments: 03/17/19 09:45 58M with PMH Afib (Coumadin), Cardiomyopathy-AICD ([employer]), HTN, HLD , CKD, CVA presenting to ED with complaints of SOB and cough for the past 4-5d. Cough is productive of white phlegm. Patient states that he feels more short of breath when laying down, not with exertion or sitting up. Also endorses night sweats and chills. Denies fever, chest pain, headache, abdominal pain, n/v/d, back pain, urinary symptoms, leg swelling. Denies recent hospitalizations or antibiotic use, recent surgeries, recent travel, sick contacts. 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 Cardiovascular: Yes: AFIB, HTN, Hyperlipdemia, Other (nonischemic cardiomyopathy --status post AICD) Renal/: Yes: Renal Inusuff (CKD) - Past Surgical History Past Surgical History: Yes: AICD - Smoking History Smoking history: Never smoked Have you smoked in the past 12 months: No Aproximately how many cigarettes per day: 0 - Alcohol/Substance Use Hx Alcohol Use: No Home Medications - Allergies Allergies/Adverse Reactions: Allergies Allergy/AdvReac Type Severity Reaction Status Date / Time No Known Allergies Allergy Verified 03/17/19 09:32 - Home Medications Home Medications: Ambulatory Orders Metoprolol Succinate [Toprol XL -] 50 mg PO DAILY 30 Days #30 tab.sr.24h Warfarin Na [Coumadin -] 5 mg PO DAILY@1800 06/18/17 Levothyroxine [Synthroid -] 25 mcg PO DAILY@0700 #30 tablet 09/23/18 Physical Examination Vital Signs: Vital Signs Temperature Pulse Rate 73 03/17/19 10:59 Respiratory Rate 20 03/17/19 10:59 Blood Pressure 158/109 H 03/17/19 10:59 O2 Sat by Pulse Oximetry (%) 96 03/17/19 10:59 Constitutional: Yes: No Distress, Calm Cardiovascular: Yes: Pulse Irregular Respiratory: Yes: Diminished Gastrointestinal: Yes: Normal Bowel Sounds, Soft, Abdomen, Obese. No: Tenderness Edema: No Neurological: Yes: WNL Labs: CBC, BMP 03/17/19 09:30 03/17/19 09:30 Imaging - Results Chest X-ray: Image Reviewed (no infiltrates) EKG: Image Reviewed (sinus) Problem List - Problems (1) Heart failure Code(s): I50.9 - HEART FAILURE, UNSPECIFIED Qualifiers: Heart failure type: unspecified Heart failure chronicity: unspecified Qualified Code(s): I50.9 - Heart failure, unspecified (2) AF (paroxysmal atrial fibrillation) Code(s): I48.0 - PAROXYSMAL ATRIAL FIBRILLATION (3) LIANNE (acute kidney injury) Code(s): N17.9 - ACUTE KIDNEY FAILURE, UNSPECIFIED (4) DVT prophylaxis Code(s): LHE5008 - (5) Hypertension Code(s): I10 - ESSENTIAL (PRIMARY) HYPERTENSION Assessment/Plan CHF decompensation acute systolic s/p AICD -- IV Lasix BID -- check daily weights -- check I and O -- cardiology eval -- cardiac enzymes -- admit to telemetry Afib -- rate is controlled -- Coumadin per INR Hypothyroidism -- synthroid to be increased Acute on CKD -- on iv lasix BID -- monitor renal function on ov lasix -- acute renal failure on chronic likely due to CHF
[2019-03-17] MEDS: FUROSEMIDE 40 MG/4 ML INJECTABLE VIAL IVPUSH SCH (14:40)
--- NOTE | 2019-03-17 15:11 | CON.CARD ---
Consult Consult Specialty:: Cardiology Referred by:: Dr. Keny Juarez Reason for Consultation:: SOB - History of Present Illness Chief Complaint: SOB History of Present Illness: 58M with PMH: CVA/TIA nonisch CMP s/p ICD, h/o VF with shocks HTN CKD Presents to ER with 2 days worsened ROCK, cough, orthopnea, and markedly elevated BNP ( 1571 in September vs [address]4037 now). Received IV Lasix in ER with sx improvement. No CP, ICD shocks, no edema, no syncope. + abdominal distension. echo 05/2017: lvef 25-30, global hk, nl rv, mild ar, rvsp 30-40 echo 08/2015: mod lve, mod-sev dec lvef, global hk, nl rv, mild AR, mild ao root dil 4.3 cm cath 07/2014: non obs cad (only <30% pRCA). 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 Cardio/Vascular: Yes: AFIB, HTN, Hyperlipdemia, Other (nonischemic cardiomyopathy--status post AICD) Renal/: Yes: Renal Inusuff (CKD) Heme/Onc: No: Anemia, B12 Deficiency, Bleeding Disorder, Cancer, Current Chemotherapy, Current Radiation Therapy, Hemochromatosis, Hypercoaguable State, Myeloproliferative Synd, Sickle Cell Disease, Sickle Cell Trait, Thrombocytopenia, Other Infectious Disease: No: AIDS, C-Diff, Herpes Zoster, HIV, MRSA, STD's, Tuberculosis, VREF, Other Psych: No: Addictions, Anxiety, Bipolar, Depression, Panic, Psychosis, Schizophrenia, Other Musculoskeletal: No: Bursitis, Chronic low back pain, Hemiparesis, Hemiplegia, Osteoarthritis, Paraplegia, Other Rheumatology: No: Fibromyalgia, Gout, Lupus, Rheumatoid Arthritis, Sarcoidosis, Vasculitis, Other ENT: No: Allergic Rhinitis, Sinusitis, Other Endocrine: No: Logan's Disease, Vinh's Disease, Diabetes Insipidus, Diabetes Mellitus, Hyperparathyroidism, Hyperthyroidism, Hypothyroidism, Osteopenia, SIADH, Other - Past Surgical History Past Surgical History: Yes: AICD - Alcohol/Substance Use Hx Alcohol Use: No - Smoking History Smoking history: Never smoked Have you smoked in the past 12 months: No Aproximately how many cigarettes per day: 0 Home Medications - Allergies Allergies/Adverse Reactions: Allergies Allergy/AdvReac Type Severity Reaction Status Date / Time No Known Allergies Allergy Verified 03/17/19 09:32 - Home Medications Home Medications: Ambulatory Orders Metoprolol Succinate [Toprol XL -] 50 mg PO DAILY 30 Days #30 tab.sr.24h Warfarin Na [Coumadin -] 5 mg PO DAILY@1800 06/18/17 Levothyroxine [Synthroid -] 25 mcg PO DAILY@0700 #30 tablet 09/23/18 Family Medical History Family History: Unremarkable Review of Systems - Review of Systems Constitutional: reports: Weakness Cardiovascular: reports: No Symptoms Respiratory: reports: Exercise Intolerance, SOB on Exertion Gastrointestinal: reports: Other (distension) Neurological: reports: No Symptoms Endocrine: reports: No Symptoms Psychiatric: reports: No Symptoms - Risk Factors Known Risk Factors: Yes: Prior ME /Emb Stroke Vital Signs: Vital Signs Temperature 97.9 F 03/17/19 14:00 Pulse Rate 75 03/17/19 14:00 Respiratory Rate 18 03/17/19 14:00 Blood Pressure 135/98 03/17/19 14:00 O2 Sat by Pulse Oximetry (%) 95 03/17/19 14:00 Constitutional: Yes: No Distress, Calm Eyes: Yes: Conjunctiva Clear, EOM Intact HENT: Yes: Atraumatic, Normocephalic Neck: Yes: Trachea Midline Respiratory: Yes: CTA Bilaterally Gastrointestinal: Yes: Soft (NT, distended) JVD: Yes Carotid Bruit: No Heart Sounds: Yes: S1, S2 (rrr, no MRG) Edema: No (warm b/l) Peripheral Pulses WNL: Yes Neurological: Yes: Alert, Oriented - Other Data Labs, Other Data: CBC, BMP 03/17/19 09:30 03/17/19 09:30 INR, PTT INR 2.54 (0.83-1.09) H 03/17/19 09:30 Troponin, BNP 03/17/19 03/17/19 09:30 09:30 Troponin I 0.05 B-Natriuretic Peptide 62922.6 H Troponin, BNP 03/17/19 03/17/19 09:30 09:30 Troponin I 0.05 B-Natriuretic Peptide 38620.6 H Laboratory Tests 03/17/19 03/17/19 03/17/19 09:30 09:30 09:30 WBC 7.1 Hgb 15.0 Plt Count 220 INR Sodium 141 Potassium 4.6 Creatine Kinase 73 Troponin I 0.05 B-Natriuretic Peptide 03022.6 H TSH 6.30 H D 03/17/19 09:30 WBC Hgb Plt Count INR 2.54 H Sodium Potassium Creatine Kinase Troponin I B-Natriuretic Peptide TSH NSR , first degree AV block, Inc LBBB, intermittent V pacing, NSST, LAE Echo: Image Reviewed Prior Cardiac Procedures: Cardiac Catheterization Ejection Fraction %: LVEF < 40 % Imaging - Results Chest X-ray: Image Reviewed EKG: Image Reviewed Assessment/Plan IMP: Acute on chronic systolic CHF, unclear precipitant Non-ischemic CM s/p ICD H/o VT requiring device therapy, formerly on Amio H/o CVA w/ low EF on coumadin CKD REC: 1. Telemetry for IV Lasix, daily weights and BMP for close f/u renal fx and lytes 2. Echo 3. INR 2-3 (per prior notes, no documented AF but prior CVA with low EF treated w/ Warfarin) 4. Cont Toprol 5. Had been on Amio for VT episodes requiring device therapy, but was d/c'd due to LFT abnormalities. To f/u EP re possible resumption vs alternative AAD vs VT ablation. Cont Toprol/tele /aggressive lyte repletion. 6. Off VALDO/ARB due to CKD. Will follow. Thank you.
[2019-03-17] MEDS ORDERED: WARFARIN NA 5 MG TABLET (UD) ONE (19:26)
[2019-03-17] MEDS: WARFARIN NA 5 MG TABLET (UD) PO SCH (19:35)
[2019-03-18 01:21] VITALS: BMI 29.7
[2019-03-18] MEDS: FUROSEMIDE 40 MG/4 ML INJECTABLE VIAL IVPUSH SCH ×2 (06:16→13:32)
[2019-03-18] MEDS ORDERED: LEVOTHYROXINE NA 25 MCG TABLET (FP) PO SCH (07:00)
[2019-03-18 07:04] LABS: EOS % 1.3 % (0-4.5); HEMATOCRIT 43.8 % (35.4-49); HEMOGLOBIN 14.4 GM/dL (11.7-16.9); LYMPH % 25.8 % (8-40); MCHC 32.9 g/dl (32.0-35.9); MEAN CELL VOLUME 91.3 fl (80-96); MEAN PLT VOLUME 11.2 fl (7.5-11.1); NEUT % 59.9 % (42.8-82.8); PLATELET COUNT 198 K/MM3 (134-434); RDW 13.1 % (11.9-15.9); WHITE BLOOD COUNT 6.7 K/mm3 (4.0-10.0)
[2019-03-18 07:14] LABS: INR 2.82 (0.83-1.09); PROTHROMBIN TIME (PATIENT) 33.6 SEC (9.7-13.0)
[2019-03-18 07:34] LABS: ALBUMIN 3.4 g/dl (3.4-5.0); BILIRUBIN,TOTAL 0.8 mg/dL (0.2-1); BLOOD UREA NITROGEN 22.9 mg/dL (7-18); CALCIUM 9.1 mg/dL (8.5-10.1); CREATININE 1.9 mg/dL (0.55-1.3); POTASSIUM 4.2 mmol/L (3.5-5.1); TOT PROT 6.2 g/dl (6.4-8.2)
--- NOTE | 2019-03-18 10:25 | PN ---
Progress Note (short form) - Note Progress Note: s: sob stable, no chest pain, palps, dizziness, edema Current Medications Furosemide (Lasix Injection -) 40 mg IVPUSH BID@0600,1400 [facility] Last Admin: 03/18/19 06:16 Dose: 40 mg Levothyroxine Sodium (Synthroid -) 25 mcg PO DAILY@0700 [facility] Last Admin: 03/18/19 06:16 Dose: 25 mcg Metoprolol Succinate (Toprol Xl -) 50 mg PO DAILY [facility] Last Admin: 03/18/19 09:38 Dose: 50 mg Warfarin Sodium (Coumadin -) 5 mg PO DAILY@1800 [facility] Last Admin: 03/17/19 19:35 Dose: 5 mg Vital Signs Period Temp Pulse Resp BP Sys/Palmer Pulse Ox Last 24 Hr 97.8 F-98.3 F 72-93 18-20 135-159/98-109 95-98 Constitutional: Yes: No Distress, Calm Eyes: Yes: Conjunctiva Clear, EOM Intact HENT: Yes: Atraumatic, Normocephalic Neck: Yes: Trachea Midline Respiratory: Yes: CTA Bilaterally Gastrointestinal: Yes: Soft (NT, distended) JVD: Yes Carotid Bruit: No Heart Sounds: Yes: S1, S2 (rrr, no MRG) Edema: No (warm b/l) Peripheral Pulses WNL: Yes Neurological: Yes: Alert, Oriented NSR , first degree AV block, Inc LBBB, intermittent V pacing, NSST, LAE Echo: Image Reviewed Prior Cardiac Procedures: Cardiac Catheterization Ejection Fraction %: LVEF < 40 % Imaging - Results Chest X-ray: Image Reviewed EKG: Image Reviewed tele: sinus Assessment/Plan IMP: Acute on chronic systolic CHF, unclear precipitant Non-ischemic CM s/p ICD H/o VT requiring device therapy, formerly on Amio H/o CVA w/ low EF on coumadin CKD REC: 1. Continue IV Lasix, daily weights and BMP for close f/u renal fx and lytes 2. Echo pending 3. INR 2-3 (per prior notes, no documented AF but prior CVA with low EF treated w/ Warfarin) 4. Cont Toprol 5. Had been on Amio for VF episodes requiring device therapy, but was d/c'd due to LFT abnormalities. Was to f/u EP re possible resumption vs alternative AAD, missed appointment. Cont Toprol/tele /aggressive lyte repletion. 6. Off VALDO/ARB due to CKD.
--- NOTE | 2019-03-18 12:56 | EKG ---
Test Reason : Blood Pressure : / mmHG Vent. Rate : 086 BPM Atrial Rate : 086 BPM P-R Int : 218 ms QRS Dur : 128 ms QT Int : 394 ms P-R-T Axes : 062 010 144 degrees QTc Int : 471 ms SINUS RHYTHM WITH 1ST DEGREE A-V BLOCK WITH OCCASIONAL PREMATURE VENTRICULAR COMPLEXES POSSIBLE LEFT ATRIAL ENLARGEMENT LEFT BUNDLE BRANCH BLOCK ABNORMAL ECG WHEN COMPARED WITH ECG OF 19-SEP-2018 14:22, T WAVE INVERSION MORE EVIDENT IN LATERAL LEADS Confirmed by NORMAN TAYLOR MD ([id number]) on 03/18/2019 12:55:50 PM Referred By: Confirmed By:NORMAN TAYLOR MD
--- NOTE | 2019-03-18 12:58 | PN ---
Progress Note (short form) - Note Progress Note: feeling better Vital Signs - 24 hr 03/17/19 03/17/19 03/17/19 14:00 19:23 20:41 Temperature 97.9 F 98 F 98.0 F Pulse Rate 81 Pulse Rate [ 75 72 Apical] Respiratory 18 18 18 Rate Blood Pressure 145/100 Blood Pressure 135/98 139/98 [Left Arm] O2 Sat by Pulse 95 95 98 Oximetry (%) 03/18/19 03/18/19 03/18/19 01:00 06:00 09:00 Temperature 97.9 F 98.3 F 97.8 F Pulse Rate 93 H 91 H 90 Pulse Rate [ Apical] Respiratory 18 18 18 Rate Blood Pressure 159/105 H 153/107 H 153/98 Blood Pressure [Left Arm] O2 Sat by Pulse 96 96 Oximetry (%) Current Medications Generic Name Dose Route Start Last Admin Trade Name Freq PRN Reason Stop Dose Admin Furosemide 40 mg 03/17/19 14:00 03/18/19 06:16 Lasix Injection - IVPUSH 40 mg BID@0600,1400 MARIANA Administration Levothyroxine Sodium 25 mcg 03/18/19 07:00 03/18/19 06:16 Synthroid - PO 25 mcg DAILY@0700 MARIANA Administration Metoprolol Succinate 50 mg 03/18/19 10:00 03/18/19 09:38 Toprol Xl - PO 50 mg DAILY [facility]IA[facility] Administration Warfarin Sodium 5 mg 03/17/19 18:00 03/17/19 19:35 Coumadin - PO 5 mg DAILY@1800 [facility]IANA Administration Laboratory Results - last 24 hr 03/17/19 03/18/19 03/18/19 09:30 06:10 06:10 WBC 6.7 RBC 4.80 Hgb 14.4 Hct 43.8 MCV 91.3 MCH 30.0 MCHC 32.9 RDW 13.1 Plt Count 198 MPV 11.2 H Absolute Neuts (auto) 4.0 Neutrophils % 59.9 Lymphocytes % 25.8 Monocytes % 12.0 H Eosinophils % 1.3 Basophils % 1.0 Nucleated RBC % 0 PT with INR INR Sodium 141 Potassium 4.2 Chloride 108 H Carbon Dioxide 27 Anion Gap 6 L BUN 22.9 H Creatinine 1.9 H Est GFR (CKD-EPI)AfAm 43.75 Est GFR (CKD-EPI)NonAf 37.75 Random Glucose 95 Calcium 9.1 Total Bilirubin 0.8 AST 23 ALT 17 Alkaline Phosphatase 72 Total Protein 6.2 L Albumin 3.4 TSH 6.30 H D 03/18/19 06:10 WBC RBC Hgb Hct MCV MCH MCHC RDW Plt Count MPV Absolute Neuts (auto) Neutrophils % Lymphocytes % Monocytes % Eosinophils % Basophils % Nucleated RBC % PT with INR 33.60 H INR 2.82 H Sodium Potassium Chloride Carbon Dioxide Anion Gap BUN Creatinine Est GFR (CKD-EPI)AfAm Est GFR (CKD-EPI)NonAf Random Glucose Calcium Total Bilirubin AST ALT Alkaline Phosphatase Total Protein Albumin TSH S1S2 irregular Lungs decreased Abd-- soft, NT, obese no edema plan Coumadin per INR IV lasix BID monitor renal function daily weights Input and Output daily Problem List - Problems (1) Heart failure Code(s): I50.9 - HEART FAILURE, UNSPECIFIED Qualifiers: Heart failure type: unspecified Heart failure chronicity: unspecified Qualified Code(s): I50.9 - Heart failure, unspecified (2) AF (paroxysmal atrial fibrillation) Code(s): I48.0 - PAROXYSMAL ATRIAL FIBRILLATION (3) LIANNE (acute kidney injury) Code(s): N17.9 - ACUTE KIDNEY FAILURE, UNSPECIFIED
--- NOTE | 2019-03-18 15:27 | ECHO ---
Name: ROXANE COBIAN Exam:Adult Echocardiogram Study Date: 03/18/2019 10:20 AM Age: 58 yrs Reason For Study: CHF Height: 72 in Weight: 214 lb BSA: 2.2 m2 MMode/2D Measurements & Calculations IVSd: 1.3 cm Ao root diam: 4.3 cm LVIDd: 6.6 cm LA dimension: 3.8 cm LVIDs: 4.9 cm LVPWd: 1.0 cm EDV(Teich): 221.1 ml LVOT diam: 2.0 cm ESV(Teich): 113.2 ml LAV (MOD-bp): 104.0 ml Doppler Measurements & Calculations MV E max rj: 106.0 cm/sec Ao V2 max: 93.6 cm/sec MV dec time: 0.15 sec Ao max P.5 mmHg AI P1/2t: 435.8 msec MENA(V,D): 2.8 cm2 AI max rj: 383.1 cm/sec LV V1 max P.8 mmHg AI max P.8 mmHg LV V1 max: 84.4 cm/sec AI dec slope: 257.5 cm/sec2 MR max rj: 401.4 cm/sec TR max rj: 247.3 cm/sec MR max P.7 mmHg TR max P.0 mmHg PA V2 max: 55.7 cm/sec Med Peak E' Rj: 3.6 cm/sec PA max P.2 mmHg Med E/e': 29.5 Lat Peak E' Rj: 3.5 cm/sec Lat E/e': 30.4 PI Vmax: 101.8 cm/sec Procedure A two-dimensional transthoracic echocardiogram with color flow and Doppler was performed. Left Ventricle The left ventricle is severely dilated. Left ventricular systolic function is severely reduced. The transmitral spectral Doppler flow pattern is suggestive of restrictive physiology. There is severe gl obal hypokinesis of the left ventricle. Regional wall motion abnormalities cannot be excluded due to limit ed visualization. Septal motion is consistent with conduction abnormality. Right Ventricle The right ventricle is not well visualized. There is a pacemaker lead in the right ventricle. Atria Normal left and right atrial size and function. Mitral Valve There is mild mitral valve thickening. There is no mitral valve stenosis. There is mild to moderate m itral regurgitation. Tricuspid Valve The tricuspid valve is not well visualized. There is no tricuspid stenosis. There is mild tricuspid regurgitation. Right ventricular systolic pressure is normal. Aortic Valve The aortic valve is normal in structure and function. No hemodynamically significant valvular aortic stenosis. Moderate to severe aortic regurgitation. Pulmonic Valve The pulmonic valve is not well visualized. There is no pulmonic valvular stenosis. There is no pulmon ic valvular regurgitation. Great Vessels Mild aortic root dilatation. Pericardium/Pleura There is no pericardial effusion. Interpretation Summary Mild aortic root dilatation. The left ventricle is severely dilated. Left ventricular systolic function is severely reduced. Moderate to severe aortic regurgitation. Right ventricular systolic pressure is normal. There is mild tricuspid regurgitation. There is severe global hypokinesis of the left ventricle. Regional wall motion abnormalities cannot be excluded due to limited visualization. Septal motion is consistent with conduction abnormality. There is a pacemaker lead in the right ventricle. The transmitral spectral Doppler flow pattern is suggestive of restrictive physiology. There is mild to moderate mitral regurgitation. MD Umair Rocha 03/18/2019 03:26 PM
[2019-03-18] MEDS: WARFARIN NA 5 MG TABLET (UD) PO SCH (17:56)
[2019-03-19] MEDS: FUROSEMIDE 40 MG/4 ML INJECTABLE VIAL IVPUSH SCH ×2 (06:11→14:42)
[2019-03-19] MEDS: LEVOTHYROXINE NA 50 MCG TABLET (FP) PO SCH (06:11)
[2019-03-19 06:34] LABS: INR 3.16 (0.83-1.09); PROTHROMBIN TIME (PATIENT) 37.7 SEC (9.7-13.0)
[2019-03-19 06:42] LABS: BLOOD UREA NITROGEN 31.2 mg/dL (7-18); CALCIUM 8.5 mg/dL (8.5-10.1); POTASSIUM 3.8 mmol/L (3.5-5.1)
--- NOTE | 2019-03-19 11:14 | PN ---
Progress Note (short form) - Note Progress Note: s: sob stable, no chest pain, palps, dizziness, edema Current Medications Generic Name Dose Route Start Last Admin Trade Name Sandra PRN Reason Stop Dose Admin Furosemide 40 mg 03/17/19 14:00 03/19/19 06:11 Lasix Injection - IVPUSH 40 mg BID@0600,1400 MARIANA Administration Levothyroxine Sodium 50 mcg 03/18/19 12:59 03/19/19 06:11 Synthroid - PO 50 mcg DAILY@0700 MARIANA Administration Metoprolol Succinate 50 mg 03/18/19 10:00 03/19/19 09:24 Toprol Xl - PO 50 mg DAILY MARIANA Administration Warfarin Sodium 5 mg 03/17/19 18:00 03/18/19 17:56 Coumadin - PO 5 mg DAILY@1800 MARIANA Administration Vital Signs Period Temp Pulse Resp BP Sys/Palmer Pulse Ox Last 24 Hr 97.8 F-99.2 F 78-97 20-20 131-155/75-97 96-96 Constitutional: Yes: No Distress, Calm Eyes: Yes: Conjunctiva Clear, EOM Intact HENT: Yes: Atraumatic, Normocephalic Neck: Yes: Trachea Midline Respiratory: Yes: CTA Bilaterally Gastrointestinal: Yes: Soft (NT, distended) JVD: Yes Carotid Bruit: No Heart Sounds: Yes: S1, S2 (rrr, no MRG) Edema: No (warm b/l) Peripheral Pulses WNL: Yes Neurological: Yes: Alert, Oriented NSR , first degree AV block, Inc LBBB, intermittent V pacing, NSST, LAE Echo: Image Reviewed Prior Cardiac Procedures: Cardiac Catheterization Ejection Fraction %: LVEF < 40 % Imaging - Results Chest X-ray: Image Reviewed EKG: Image Reviewed tele: sinus echo 03/2019: lve, sev dec lvef, mod-sev ar, mild tr, nl rvsp, mild-mod mr, mod as, dil ao root Assessment/Plan IMP: Acute on chronic systolic CHF, unclear precipitant Non-ischemic CM s/p ICD H/o VT requiring device therapy, formerly on Amio H/o CVA w/ low EF on coumadin CKD REC: 1. vol status improving, continue IV Lasix, daily weights and BMP for close f/u renal fx and lytes. likely can change to po lasix tomorrow. 3. INR 2-3 (per prior notes, no documented AF but prior CVA with low EF treated w/ Warfarin) 4. Cont Toprol 5. Had been on Amio for VF episodes requiring device therapy, but was d/c'd due to LFT abnormalities. Was to f/u EP re possible resumption vs alternative AAD, missed appointment. Cont Toprol/tele /aggressive lyte repletion. 6. Off VALDO/ARB due to CKD.
--- NOTE | 2019-03-19 12:11 | PN ---
Progress Note (short form) - Note Progress Note: feeling better tells me he feels slightly unsteady while ambulating decreased SOB Vital Signs - 24 hr 03/18/19 03/18/19 03/19/19 17:00 20:38 01:22 Temperature 97.8 F 98.4 F Pulse Rate 81 78 Respiratory 20 20 Rate Blood Pressure 138/90 148/92 O2 Sat by Pulse 96 Oximetry (%) 03/19/19 03/19/19 05:50 09:00 Temperature 99.2 F 97.9 F Pulse Rate 97 H 87 Respiratory 20 20 Rate Blood Pressure 155/97 131/75 O2 Sat by Pulse 96 Oximetry (%) Current Medications Generic Name Dose Route Start Last Admin Trade Name Freq PRN Reason Stop Dose Admin Furosemide 40 mg 03/17/19 14:00 03/19/19 06:11 Lasix Injection - IVPUSH 40 mg BID@0600,1400 MARIANA Administration Levothyroxine Sodium 50 mcg 03/18/19 12:59 03/19/19 06:11 Synthroid - PO 50 mcg DAILY@0700 MARIANA Administration Metoprolol Succinate 50 mg 03/18/19 10:00 03/19/19 09:24 Toprol Xl - PO 50 mg DAILY MARIANA Administration Warfarin Sodium 5 mg 03/17/19 18:00 03/18/19 17:56 Coumadin - PO 5 mg DAILY@1800 MARIANA Administration Intake & Output 03/16/19 03/17/19 03/18/19 03/19/19 23:59 23:59 23:59 23:59 Intake Total 1040 500 Output Total 1300 1000 Balance -260 -500 Weight 518 lb 1.381 oz 218 lb 12.8 oz 215 lb 6.4 oz Laboratory Results - last 24 hr 03/19/19 03/19/19 05:55 05:55 PT with INR 37.70 H INR 3.16 H Sodium 139 Potassium 3.8 Chloride 105 Carbon Dioxide 27 Anion Gap 8 BUN 31.2 H Creatinine 2.0 H Est GFR (CKD-EPI)AfAm 41.12 Est GFR (CKD-EPI)NonAf 35.48 Random Glucose 114 H Calcium 8.5 S1S2 irregular Lungs decreased Abd-- soft, NT, obese no edema plan Coumadin per INR- hold today IV lasix BID-->likley po tomorrow renal function about the same monitor renal function daily weights Input and Output daily PT eval Problem List - Problems (1) Heart failure Code(s): I50.9 - HEART FAILURE, UNSPECIFIED Qualifiers: Heart failure type: unspecified Heart failure chronicity: unspecified Qualified Code(s): I50.9 - Heart failure, unspecified (2) AF (paroxysmal atrial fibrillation) Code(s): I48.0 - PAROXYSMAL ATRIAL FIBRILLATION (3) LIANNE (acute kidney injury) Code(s): N17.9 - ACUTE KIDNEY FAILURE, UNSPECIFIED (4) DVT prophylaxis Code(s): DEG6946 - (5) Hypertension Code(s): I10 - ESSENTIAL (PRIMARY) HYPERTENSION
[2019-03-20] MEDS: FUROSEMIDE 40 MG/4 ML INJECTABLE VIAL IVPUSH SCH (06:30)
[2019-03-20] MEDS: LEVOTHYROXINE NA 50 MCG TABLET (FP) PO SCH (06:30)
--- NOTE | 2019-03-20 07:11 | PN ---
Progress Note, Physician Chief Complaint: NICM s/p ICD, h/o VF, a/w acute on chronic systolic CHF Feeling better, less SOB, weight down, abdominal distension improved TELE: 16 beats NSVT, underlying NSR, LBBB; frequent VPCs and couplets History of Present Illness: weight down to 214lbs - Current Medication List Current Medications: Active Medications Furosemide (Lasix Injection -) 40 mg IVPUSH BID@0600,1400 [facility] Last Admin: 03/20/19 06:30 Dose: 40 mg Levothyroxine Sodium (Synthroid -) 50 mcg PO DAILY@0700 [facility] Last Admin: 03/20/19 06:30 Dose: 50 mcg Metoprolol Succinate (Toprol Xl -) 50 mg PO DAILY [facility] Last Admin: 03/19/19 09:24 Dose: 50 mg Warfarin Sodium (Coumadin -) 5 mg PO DAILY@1800 [facility] Last Admin: 03/18/19 17:56 Dose: 5 mg - Objective Vital Signs: Vital Signs Temperature 97.3 F L 03/20/19 01:57 Pulse Rate 86 03/20/19 01:57 Respiratory Rate 20 03/20/19 01:57 Blood Pressure 148/98 03/20/19 01:57 O2 Sat by Pulse Oximetry (%) 98 03/19/19 20:16 Constitutional: Yes: No Distress Cardiovascular: Yes: Regular Rate and Rhythm Respiratory: Yes: CTA Bilaterally Gastrointestinal: Yes: Soft (NT) Edema: No Neurological: Yes: Alert, Oriented Labs: CBC, BMP 03/18/19 06:10 03/19/19 05:55 INR, PTT INR 3.16 (0.83-1.09) H 03/19/19 05:55 - ....Imaging EKG: Image Reviewed Assessment/Plan Assessment/Plan IMP: Acute on chronic systolic CHF, unclear precipitant, clinically improved. Non-ischemic CM s/p ICD H/o VT requiring device therapy, formerly on Amio H/o CVA w/ low EF on coumadin CKD REC: 1. vol status improved. Switch to Lasix 40mg PO BID w/ K+ supp; plan for d/c in AM tomorrow if stable. 3. INR 2-3 (per prior notes, no documented AF but prior CVA with low EF treated w/ Warfarin) 4. Cont Toprol 5. Had been on Amio for VF episodes requiring device therapy, but was d/c'd due to LFT abnormalities. Was to f/u EP re possible resumption vs alternative AAD, missed appointment. Cont Toprol/tele /aggressive lyte repletion; check Mg2+ today. 6. Off VALDO/ARB due to CKD. 7. Runs NSVT, known. Replete lytes. Add evening dose Toprol XL both for BP control and for longish runs NSVT
[2019-03-20 07:48] LABS: BLOOD UREA NITROGEN 31.9 mg/dL (7-18); CALCIUM 9.2 mg/dL (8.5-10.1); CREATININE 1.9 mg/dL (0.55-1.3); POTASSIUM 3.8 mmol/L (3.5-5.1)
[2019-03-20 08:03] LABS: INR 2.71 (0.83-1.09); PROTHROMBIN TIME (PATIENT) 32.3 SEC (9.7-13.0)
[2019-03-20] MEDS ORDERED: PT OWN MED DRAWER 7, Y5N ONE (09:54)
[2019-03-20] MEDS: POTASSIUM CHLORIDE TABS 20 MEQ TABLET.ER (FP) PO SCH (11:02)
--- NOTE | 2019-03-20 11:37 | PN ---
Progress Note (short form) - Note Progress Note: pt seen/ examined chart reviewed awake/ comfortable feels better still gets sob with walking Vital Signs Temp 97.3 F L 03/20/19 01:57 Pulse 86 03/20/19 01:57 Resp 20 03/20/19 01:57 BP 148/98 03/20/19 01:57 Pulse Ox 98 03/19/19 20:16 Intake & Output 03/19/19 03/19/19 03/20/19 11:59 23:59 11:59 Intake Total 500 790 240 Output Total 1000 2250 Balance -500 -1460 240 Weight 215 lb 6.4 oz 214 lb 6.4 oz Intake: Oral 500 790 240 Output: Urine 1000 2250 Void 1000 2250 Other: Voiding Method Toilet Urinal # Unmeasured Voids Void 1 Bowel Movement No No Weight Measurement Method Standing Scale Standing Scale Active Medications Furosemide (Lasix -) 40 mg PO BID@0600,1400 [facility] Levothyroxine Sodium (Synthroid -) 50 mcg PO DAILY@0700 [facility] Last Admin: 03/20/19 06:30 Dose: 50 mcg Metoprolol Succinate (Toprol Xl -) 50 mg PO DAILY [facility] Last Admin: 03/20/19 11:01 Dose: 50 mg Metoprolol Succinate (Toprol Xl -) 25 mg PO DAILY@1800 [facility] Potassium Chloride (K-Dur -) 20 meq PO DAILY [facility] Last Admin: 03/20/19 11:02 Dose: 20 meq Warfarin Sodium (Coumadin -) 5 mg PO DAILY@1800 [facility] Last Admin: 03/18/19 17:56 Dose: 5 mg CBC, BMP 03/18/19 06:10 03/20/19 05:35 INR, PTT INR 2.71 (0.83-1.09) H 03/20/19 05:35 S1S2 irregular Lungs decreased Abd-- soft, NT, obese no edema plan Coumadin per INR- renal function about the same monitor renal function daily weights better cardiology f/u noted ambulate monitor bp will follow if stable - consider d/c in am Problem List - Problems (1) Heart failure Code(s): I50.9 - HEART FAILURE, UNSPECIFIED Qualifiers: Heart failure type: unspecified Heart failure chronicity: unspecified Qualified Code(s): I50.9 - Heart failure, unspecified (2) AF (paroxysmal atrial fibrillation) Code(s): I48.0 - PAROXYSMAL ATRIAL FIBRILLATION (3) LIANNE (acute kidney injury) Code(s): N17.9 - ACUTE KIDNEY FAILURE, UNSPECIFIED (4) DVT prophylaxis Code(s): [id number] - (5) Hypertension Code(s): I10 - ESSENTIAL (PRIMARY) HYPERTENSION
[2019-03-20 11:45] LABS: MAGNESIUM 2.3 mg/dL (1.8-2.4)
[2019-03-20] MEDS: FUROSEMIDE 40 MG TABLET (FP) PO SCH (13:34)
[2019-03-20] MEDS: WARFARIN NA 5 MG TABLET (UD) PO SCH (17:52)
[2019-03-20] MEDS ORDERED: metoPROLOL SUCCINATE 25 MG TAB.SR.24H (FP) PO SCH (18:00)
[2019-03-21] MEDS: LEVOTHYROXINE NA 50 MCG TABLET (FP) PO SCH (05:59)
[2019-03-21] MEDS: FUROSEMIDE 40 MG TABLET (FP) PO SCH (05:59)
[2019-03-21 08:42] VITALS: BP 107/95; PULSE 80; TEMP 97.7
[2019-03-21] MEDS: POTASSIUM CHLORIDE TABS 20 MEQ TABLET.ER (FP) PO SCH (09:16)
[2019-03-21 09:50] LABS: INR 2.68 (0.83-1.09); PROTHROMBIN TIME (PATIENT) 31.9 SEC (9.7-13.0)
--- NOTE | 2019-03-21 12:47 | DS ---
Physical Examination Vital Signs: Vital Signs Temperature 97.7 F 03/21/19 08:40 Pulse Rate 80 03/21/19 08:40 Respiratory Rate 18 03/21/19 08:42 Blood Pressure 107/95 03/21/19 08:40 O2 Sat by Pulse Oximetry (%) 97 03/21/19 08:42 Findings/Remarks: patient seen and examined. Feels much better and wants to go home. Denies chest pain or shortness of breath Constitutional: Yes: No Distress, Calm Eyes: Yes: Conjunctiva Clear Neck: Yes: Supple Cardiovascular: Yes: Regular Rate and Rhythm Respiratory: Yes: Diminished Gastrointestinal: Yes: Normal Bowel Sounds, Soft Edema: No Neurological: Yes: Alert Psychiatric: Yes: Alert Labs: CBC, BMP 03/18/19 06:10 03/20/19 05:35 Discharge Summary Problems reviewed: Yes Reason For Visit: SOB,HEART FAILURE Current Active Problems Heart failure (Acute) Hospital Course: 58M with PMH Afib (Coumadin), Cardiomyopathy-AICD ([employer]), HTN, HLD , CKD, CVA presenting to ED with complaints of SOB and cough for the past 4-5d. Cough is productive of white phlegm. Patient states that he feels more short of breath when laying down, not with exertion or sitting up patient found to be in CHF exacerbation Echocardiogram----showed severe global hypokinesia----severe LV dysfunction Treated with IV diuretics and monitor on the telemetry Cardiology followed improved Stable for discharge now on by mouth diuretics Diet also discussed with the patient Need close monitoring Close follow-up with cardiology---- Need to monitor renal function also Follow-up in office next week All above discussed in detail medications also reconciled Prescription sent to pharmacy as needed Patient in agreement with all above discussed with nursing staff also Condition: Stable - Instructions Referrals: Sulma Acevedo MD [Primary Care Provider] - - Home Medications Comprehensive Discharge Medication List: Ambulatory Orders Metoprolol Succinate [Toprol XL -] 50 mg PO DAILY 30 Days #30 tab.sr.24h Warfarin Na [Coumadin -] 5 mg PO DAILY@1800 06/18/17 Levothyroxine [Synthroid -] 25 mcg PO DAILY@0700 #30 tablet 09/23/18 Furosemide [Lasix -] 40 mg PO BID@0600,1400 30 Days #60 tablet 03/21/19 Metoprolol Succinate [Toprol XL -] 25 mg PO DAILY@1800 30 Days #30 tab.sr.24h Potassium Chloride [K-Dur -] 20 meq PO DAILY #30 tablet.er 03/21/19
--- NOTE | 2019-03-21 13:25 | PN ---
Progress Note (short form) - Note Progress Note: s: no chest pain, palps, dizziness, dyspnea. wants to go home Current Medications Furosemide (Lasix -) 40 mg PO BID@0600,1400 [facility] Last Admin: 03/21/19 05:59 Dose: 40 mg Levothyroxine Sodium (Synthroid -) 50 mcg PO DAILY@0700 [facility] Last Admin: 03/21/19 05:59 Dose: 50 mcg Metoprolol Succinate (Toprol Xl -) 50 mg PO DAILY [facility] Last Admin: 03/21/19 09:16 Dose: 50 mg Metoprolol Succinate (Toprol Xl -) 25 mg PO DAILY@1800 [facility] Last Admin: 03/20/19 17:51 Dose: 25 mg Potassium Chloride (K-Dur -) 20 meq PO DAILY [facility] Last Admin: 03/21/19 09:16 Dose: 20 meq Warfarin Sodium (Coumadin -) 5 mg PO DAILY@1800 [facility] Last Admin: 03/20/19 17:52 Dose: 5 mg Vital Signs Period Temp Pulse Resp BP Sys/Palmer Pulse Ox Last 24 Hr 97.6 F-98.3 F 71-85 18-20 107-150/88-95 96-97 Constitutional: Yes: No Distress Cardiovascular: Yes: Regular Rate and Rhythm Respiratory: Yes: CTA Bilaterally Gastrointestinal: Yes: Soft (NT) Edema: No Neurological: Yes: Alert, Oriented no jaundice, diaphoresis not agitated tele: sinus Assessment/Plan IMP: Acute on chronic systolic CHF, unclear precipitant, clinically improved. Non-ischemic CM s/p ICD H/o VT requiring device therapy, formerly on Amio H/o CVA w/ low EF on coumadin CKD REC: 1. vol status improved, continue PO lasix 3. INR 2-3 (per prior notes, no documented AF but prior CVA with low EF treated w/ Warfarin) 4. Cont Toprol 5. Had been on Amio for VF episodes requiring device therapy, but was d/c'd due to LFT abnormalities. Was to f/u EP re possible resumption vs alternative AAD, missed appointment. Cont toprol. 6. Off VALDO/ARB due to CKD. 7. Runs NSVT, known, cont bb, K supplement stable for dc from cardiac perspective.
== END 2019-03-21 13:54 | disposition home or self-care (01) | DRG 291 ==
LOC: JER 08:31 → JERBED 11:13 → J4W 03-18 01:05
PROVIDERS: ADMIT Internal Medicine; ATTEND Internal Medicine
DX: I13.0 Hypertensive heart and chronic kidney disease with heart failure and stage 1 through stage 4 chronic kidney disease, or unspecified chronic kidney disease (principal); I50.23 Acute on chronic systolic (congestive) heart failure; N17.9 Acute kidney failure, unspecified; I24.8 Other forms of acute ischemic heart disease; I42.9 Cardiomyopathy, unspecified; E78.5 Hyperlipidemia, unspecified; I48.0 Paroxysmal atrial fibrillation; I42.8 Other cardiomyopathies; E66.9 Obesity, unspecified; Z68.29 Body mass index [BMI] 29.0-29.9, adult; I44.0 Atrioventricular block, first degree; I44.7 Left bundle-branch block, unspecified; N18.9 Chronic kidney disease, unspecified; Z86.73 Personal history of transient ischemic attack (TIA), and cerebral infarction without residual deficits; Z95.810 Presence of automatic (implantable) cardiac defibrillator
CPT/HCPCS: 36415; 71046-TC-FY; 80048; 80053; 81003; 82550; 83735; 83880; 84443; 84484; 85025; 85610; 87086; 93005; 93010; 93306-TC; 97116-GP; 97161-GP; 99285-25

== ENCOUNTER 2019-08-06 09:32 | Emergency (ER) | payer OTHER ==
[2019-08-06] MEDS ORDERED: ACETAMINOPHEN 1000 MG/100 ML VIAL (NON FORMULARY) IVPB ONE (09:58)
[2019-08-06] MEDS ORDERED: ACETAMINOPHEN INJECTION 100 ML IVPB ONE (10:18)
[2019-08-06 10:27] LABS: BASO % 1.1 % (0-2.0); EOS % 1.1 % (0-4.5); HEMATOCRIT 46.4 % (35.4-49); HEMOGLOBIN 15.3 GM/dL (11.7-16.9); LYMPH % 19.3 % (8-40); MCH 30.1 pg (25.7-33.7); MCHC 33.1 g/dl (32.0-35.9); MEAN PLT VOLUME 10.7 fl (7.5-11.1); MONO % 7.7 % (3.8-10.2); NEUT % 70.8 % (42.8-82.8); PLATELET COUNT 173 K/MM3 (134-434); RDW 13.4 % (11.9-15.9)
--- NOTE | 2019-08-06 10:34 | PDOC ---
History of Present Illness - General History Source: Patient Exam Limitations: No Limitations - History of Present Illness Initial Comments: 59 yo M with a hx of CAD, arrhythmia (s/p defibrillator), CVA (7 years ago; no residual deficits), and HTN presents to the emergency department s/p syncope event that occurred today. Per the patient, he was entering his car to go for a cardiac procedure at [facility] at the request of Dr. Rico when he had sudden onset of lightheadedness and fell backwards passing out. Per the of the patient (who witnessed the syncope), she stated he was shaking "all over" for approximately 5 minutes and awoke after 6 minutes post termination of shaking. The patient was at baseline when he awoke. Currently, the patient has lightheadedness, headache, and shortness of breath and nausea. Denies the following: fevers, chills, abdominal pain, chest pain, back pain, neck pain, ears/nose/throat pain, dysuria, hematuria, diarrhea, and leg pain/swelling. Allergies: NKDA <Roberto Carlos Camilo - Last Filed: 08/06/19 17:21> <Ghazal Pope - Last Filed: 08/07/19 09:56> - General Chief Complaint: Syncope/Near Syncope Stated Complaint: FALL Time Seen by Provider: 08/06/19 09:44 Past History - Past Medical History Cardiac Disorders: Yes (cardiomyopathy; mural thrombus, defibrilator) CVA: Yes COPD: No HTN: Yes Hypercholesterolemia: Yes Thyroid Disease: Yes (hypothyroid) - Surgical History Cardiac Surgery: Yes (ICD) - Immunization History Immunization Up to Date: Yes - Psycho Social/Smoking Cessation Hx Smoking Status: No Smoking History: Never smoked Have you smoked in the past 12 months: No Number of Cigarettes Smoked Daily: 0 Hx Alcohol Use: No Drug/Substance Use Hx: No Substance Use Type: Alcohol Hx Substance Use Treatment: No <Roberto Carlos Camilo - Last Filed: 08/06/19 17:21> <Ghazal Pope - Last Filed: 08/07/19 09:56> - Past Medical History Allergies/Adverse Reactions: Allergies Allergy/AdvReac Type Severity Reaction Status Date / Time No Known Allergies Allergy Verified 03/17/19 09:32 Home Medications: Ambulatory Orders Warfarin Na [Coumadin -] 5 mg PO ASDIR 06/18/17 Levothyroxine [Synthroid -] 25 mcg PO DAILY@0700 #30 tablet 09/23/18 Furosemide [Lasix -] 40 mg PO BID@0600,1400 30 Days #60 tablet 03/21/19 Metoprolol Succinate [Toprol XL -] 12.5 mg PO DAILY 08/06/19 Review of Systems - Review of Systems Able to Perform ROS?: Yes Is the patient limited Kittitian proficient: No Constitutional: No: Chills, Diaphoresis, Fever, Weakness HEENTM: No: Eye Pain, Ear Pain, Nose Pain, Throat Pain, Mouth Pain Respiratory: No: Cough, Shortness of Breath, Hemoptysis Cardiac (ROS): Yes: Lightheadedness. No: Chest Pain, Palpitations ABD/GI: Yes: Nausea. No: Constipated, Diarrhea, Poor Appetite, Poor Fluid Intake, Rectal Bleeding, Vomiting, Abdominal cramping, Tarry Stools : No: Burning, Dysuria, Hematuria Musculoskeletal: No: Back Pain, Joint Pain, Neck Pain Integumentary: No: Bruising, Flushing, Lesions <Roberto Carlos Camilo - Last Filed: 08/06/19 17:21> *Physical Exam - Vital Signs Last Vital Signs Temp Pulse Resp BP Pulse Ox 85 20 148/93 99 08/06/19 10:03 08/06/19 10:03 08/06/19 10:03 08/06/19 10:03 - Physical Exam General Appearance: Yes: Nourished, Appropriately Dressed. No: Apparent Distress, Obese HEENT: positive: EOMI, CHAVEZ, Normal Voice, Symmetrical, Pharynx Normal, Hearing Grossly Normal, Other (tenderness to palpation in the parietal occipital region of the cranium. no depression. swelling noted without ecchymosis). negative: Pale Conjunctivae, Scleral Icterus (R), Scleral Icterus (L), Muffled/Hoarse voice, Pharyngeal Erythema, Tonsillar Exudate, Tonsillar Erythema, Nasal Congestion, Rhinorrhea, Sinus Tenderness, Orbits, Excessive drooling Neck: positive: Trachea midline, Supple. negative: Tender, Lymphadenopathy (R) , Lymphadenopathy (L), Tender lateral, Tender midline Respiratory/Chest: positive: Lungs Clear, Normal Breath Sounds. negative: Chest Tender, Respiratory Distress, Accessory Muscle Use, Rales, Rhonchi, Stridor Cardiovascular: positive: Regular Rhythm, Regular Rate, S1, S2. negative: Systolic Murmur Gastrointestinal/Abdominal: positive: Normal Bowel Sounds, Flat, Soft. negative : Tender Lymphatic: negative: Adenopathy Musculoskeletal: positive: Normal Inspection. negative: CVA Tenderness, Vertebral Tenderness Extremity: positive: Normal Capillary Refill, Normal Inspection, Normal Range of Motion. negative: Tender, Swelling, Calf Tenderness Integumentary: positive: Normal Color, Dry, Warm Neurologic: positive: commercial loan processor II-XII NML intact, Fully Oriented, Alert, Normal Mood/ Affect, Normal Response, Motor Strength 5/5, Finger to Nose (intact). negative : Facial Droop, Numbness <Roberto Carlos Camilo - Last Filed: 08/06/19 17:21> - Vital Signs Last Vital Signs Temp Pulse Resp BP Pulse Ox 98.4 F 79 20 129/90 98 08/06/19 13:06 08/06/19 13:06 08/06/19 13:06 08/06/19 13:06 08/06/19 12:15 <Ghazal Pope - Last Filed: 08/07/19 09:56> ED Treatment Course - LABORATORY CBC & Chemistry Diagram: 08/06/19 10:10 08/06/19 10:10 - Medications Given in the ED: ED Medications Discontinued Medications Generic Name Dose Route Start Last Admin Trade Name Jesúsq PRN Reason Stop Dose Admin Acetaminophen 1,000 mg 08/06/19 09:58 08/06/19 10:20 Ofirmev Injection - IVPB 08/06/19 09:59 1,000 mg ONCE ONE Administration <Roberto Carlos Camilo - Last Filed: 08/06/19 17:21> - LABORATORY CBC & Chemistry Diagram: 08/06/19 10:10 08/06/19 10:10 - ADDITIONAL ORDERS Additional order review: 08/06/19 10:10 RBC 5.10 MCV 91.0 MCHC 33.1 RDW 13.4 MPV 10.7 Neutrophils % 70.8 Lymphocytes % 19.3 D Monocytes % 7.7 Eosinophils % 1.1 Basophils % 1.1 - RADIOLOGY Radiology Studies Ordered: Category Date Time Status HEAD CT WITHOUT CONTRAST [CT] Stat CT Scan 08/06/19 09:58 Completed CHEST X-RAY PORTABLE* [RAD] Stat Radiology 08/06/19 09:58 Completed - Medications Given in the ED: ED Medications Discontinued Medications Generic Name Dose Route Start Last Admin Trade Name Sandra PRN Reason Stop Dose Admin Acetaminophen 1,000 mg 08/06/19 09:58 08/06/19 10:20 Ofirmev Injection - IVPB 08/06/19 09:59 1,000 mg ONCE ONE Administration Nicardipine HCl 25 mg/ 250 mls @ 50 mls/hr 08/06/19 11:00 08/06/19 11:19 Dextrose IVPB 5 mg/hr TITR MARIANA 50 mls/hr Administration Protocol 5 MG/HR Levetiracetam 1,000 mg 08/06/19 10:40 08/06/19 11:00 Keppra Injection - IVPB 08/06/19 10:41 1,000 mg ONCE ONE Administration Ondansetron HCl 4 mg 08/06/19 10:44 08/06/19 11:00 Zofran Injection IVPB 08/06/19 10:45 4 mg ONCE ONE Administration Phytonadione 10 mg 08/06/19 10:38 08/06/19 11:00 Aqua Mephyton Injection - IVPB 08/06/19 10:39 10 mg ONCE ONE Administration <Ghazal Popebautista - Last Filed: 08/07/19 09:56> Medical Decision Making - Critical Care Time Total Critical Care Time (minutes): 60 Critical Care Statement: The care of this patient involved high complexity decision making to prevent further life threatening deterioration of the patient 's condition and/or to evaluate & treat vital organ system(s) failure or risk of failure. - Medical Decision Making 59 yo M with a hx of CAD, arrhythmia (s/p defibrillator), CVA (7 years ago; no residual deficits), and HTN presents to the emergency department s/p syncope event that occurred today. Initial vitals: Initial Vital Signs Pulse Resp BP Pulse Ox 85 20 148/93 99 08/06/19 10:03 08/06/19 10:03 08/06/19 10:03 08/06/19 10:03 Work up Patient presents to the emergency department s/p syncope in the setting of known arrhythmia with ICD in place with seizure like convulsions shortly after the syncope with head trauma. concerns for potential ICH given the patient's mechanism of fall while being on coumadin. Of note, the patient denies taking aspirin. Last INR unknown per the patient. Patient's syncope ddx includes cardiogenic vs neurogenic vs metabolic vs hypovolemia vs infectious etiology I spoke to Dr. Rico who advised to have the patient transfered to [facility] with Dr. Quinones for continuation of his ablation that was scheduled for today. Laboratory Tests 08/06/19 08/06/19 08/06/19 10:10 10:10 10:10 WBC 6.0 RBC 5.10 Hgb 15.3 Hct 46.4 MCV 91.0 MCH 30.1 MCHC 33.1 RDW 13.4 Plt Count 173 MPV 10.7 Absolute Neuts (auto) 4.2 Neutrophils % 70.8 Lymphocytes % 19.3 D Monocytes % 7.7 Eosinophils % 1.1 Basophils % 1.1 Nucleated RBC % 0 PT with INR 23.40 H INR 1.97 H PTT (Actin FS) 42.1 H Sodium 140 Potassium 3.9 Chloride 107 Carbon Dioxide 24 Anion Gap 9 BUN 23.0 H Creatinine 1.9 H Est GFR (CKD-EPI)AfAm 43.44 Est GFR (CKD-EPI)NonAf 37.48 Random Glucose 154 H Calcium 9.2 Magnesium 2.1 Total Bilirubin 0.8 AST 32 ALT 28 Alkaline Phosphatase 93 Creatine Kinase 76 Troponin I 0.02 B-Natriuretic Peptide Total Protein 7.1 Albumin 3.9 08/06/19 10:10 WBC RBC Hgb Hct MCV MCH MCHC RDW Plt Count MPV Absolute Neuts (auto) Neutrophils % Lymphocytes % Monocytes % Eosinophils % Basophils % Nucleated RBC % PT with INR INR PTT (Actin FS) Sodium Potassium Chloride Carbon Dioxide Anion Gap BUN Creatinine Est GFR (CKD-EPI)AfAm Est GFR (CKD-EPI)NonAf Random Glucose Calcium Magnesium Total Bilirubin AST ALT Alkaline Phosphatase Creatine Kinase Troponin I B-Natriuretic Peptide 8267.8 H Total Protein Albumin Patient's head CT reports the following: left posterior tentorial acute SDH 3.8 mm thickness at maximal point with left occipital chronic post ischemic encephalomalacia. No midline shift noted Patient's INR 1.97. Patient currently has nausea and given zofran 10 mg of IV K and 4 units of FFP (no Kcentra in pharmacy). Patient's BP initially on re-evaluation was 148/101. Will begin nicardipine drip for goal of <140/90. I spoke to Dr. Rico to alert him of the changes in care plan in regards to the ICH I spoke to [facility] transfer team. The patient was accepted for transfer by ED physician Dr. Barron, Neurosurgery attending Dr. Feliz and neurosurgery resident Dr. Apodaca. Because of blood bank limitations, 2 units of FFP were thawed and given to the patient per protocol that only 2 units at a time. Patient was successfully transferred. <Roberto Carlos Camilo - Last Filed: 08/06/19 17:21> Discharge - Discharge Information Problems reviewed: Yes - Transfer to Acute Care Facility Receiving Facility Name: [email or web address] <Roberto Carlos Camilo - Last Filed: 08/06/19 17:21> <Ghazal oPpe - Last Filed: 08/07/19 09:56> - Discharge Information Clinical Impression/Diagnosis: Subdural hemorrhage, Dizziness, Syncope Condition: Guarded Disposition: TRANSFER ACUTE CARE/OTHER HOSP - Follow up/Referral Referrals: Sulma Acevedo MD [Primary Care Provider] - - Patient Discharge Instructions - Post Discharge Activity
[2019-08-06 10:35] LABS: INR 1.97 (0.83-1.09); PROTHROMBIN TIME (PATIENT) 23.4 SEC (9.7-13.0)
[2019-08-06 10:37] LABS: ACTIVATED PTT 42.1 SECONDS (25.2-36.5)
[2019-08-06] MEDS ORDERED: PHYTONADIONE 10 MG/1 ML AMP IVPB ONE (10:38)
[2019-08-06] MEDS ORDERED: levETIRAcetam 500 MG/5 ML INJECTION VIAL IVPB ONE ×2 (10:40→10:46)
[2019-08-06] MEDS ORDERED: ONDANSETRON 4 MG/2 ML VIAL IVPB ONE (10:44)
[2019-08-06] MEDS ORDERED: PHYTONADIONE 10 MG/1 ML AMP ONE (10:47)
[2019-08-06] MEDS ORDERED: niCARdipine HCL 25 MG/10 ML AMPUL IVPB ONE (10:54)
[2019-08-06 10:55] LABS: ALBUMIN 3.9 g/dl (3.4-5.0); BILIRUBIN,TOTAL 0.8 mg/dL (0.2-1); CALCIUM 9.2 mg/dL (8.5-10.1); CREATININE 1.9 mg/dL (0.55-1.3); MAGNESIUM 2.1 mg/dL (1.8-2.4); POTASSIUM 3.9 mmol/L (3.5-5.1); TOT PROT 7.1 g/dl (6.4-8.2)
--- NOTE | 2019-08-06 10:56 | PDOC ---
Attending Attestation - Resident Resident Name: Roberto Carlos Camilo - ED Attending Attestation I have performed the following: I have examined & evaluated the patient, The case was reviewed & discussed with the resident, I agree w/resident's findings & plan - HPI HPI: 08/06/19 10:56 59M with PMH Afib (Coumadin), CHF/Cardiomyopathy-AICD ([employer]), HTN, HLD, CKD, CVA presenting to ED with syncope at home, +head trauma along his occiput.. He is amnesic to the event, initially felt dizzy and nauseous, then passed out, falling to the ground and hitting his head. Family members witnessed him having generalized seizure like activity and was passed out x 5 minutes. He was planned for cardiac ablation for frequent runs of Vtach today at [facility]. Cards: Dr Rico 08/06/19 11:03 - Physicial Exam PE: 08/06/19 10:51 Agree with the resident's HPI and PE as documented in the electronic medical record. NAD, well appearing, GCS 15, +occipital swelling noted at site of trauma. alert , oriented appropriately, amnesic to event. EOMI, PERRL, nl conjunctiva, anicteric; neck supple. lungs clear, RRR, abdomen soft nontender. Back nontender. YUSUF x4, no focal neuro deficits. speech clear, 5 /5 prox and distal strength in all extrem. SILT in all extrem. No peripheral edema. normal color for ethnicity, WWP. - Critical Care Time Total Critical Care Time: 60 (ICH, syncope) Critical Care Statement: The care of this patient involved high complexity decision making to prevent further life threatening deterioration of the patient 's condition and/or to evaluate & treat vital organ system(s) failure or risk of failure. - Medical Decision Making 08/06/19 11:01 Vital Signs Temp Pulse Resp BP Pulse Ox 77 20 144/109 H 97 08/06/19 10:44 08/06/19 10:44 08/06/19 10:44 08/06/19 10:44 Patient was given Tylenol for headache and Zofran for current nausea, no vomiting. Continue with pain control. CT head shows a left occipital intracranial hemorrhage /SDH in the area of encephalomalacia and cerebellar infarction previously, c/w post traumatic head bleed.. In the setting of head trauma and ICH, on Coumadin will require reversal for major bleed. Vitamin K 10 mg IV, blood products including 4 units of FFP now as there is no PCC at institution here. Also will maintain SBP less than 140, his current blood pressure on repeat is 148/100. Will initiate nicardipine at 5 mg/hr Seizure precautions with IV Keppra 1 g loading, as patient did have syncope with seizure activity in the setting of his head trauma. discussed with cardiology, Dr Rico, who was planning to have pt seen at [place] for EP eval and ablation. now warrants NSG eval for traumatic head bleed, reversal for coumadin initiated 08/06/19 11:04 INR is 1.97, last Coumadin dose was last night per patient. CBC and electrolytes are within normal limits. Creatinine is at baseline at 1.9, electrolytes are within normal limits. Troponin is negative x1, reassuring, BNP is chronically elevated given his cardiomyopathy history. But also has renal insufficiency could also cause chronic elevation of the BNP. Transfer to [place], accepted had spoken with several consultants, including neurology/NSG, cardiology and ICU accepted by NSG Dr Apodaca consent and paperwork for transfer filled out, documented and discussed with patient and family. 08/06/19 11:23 transport with critical care /ACLS team in 35-40 minutes 08/06/19 11:25 Heart Score/ECG Review #1 ECG reviewed & interpreted by me at: 10:00 08/06/19 10:57 EKG sinus rhythm at 87 bpm, frequent PVCs, no interval abnormalities, narrow QRS , ST and T wave segments and morphology normal. Nonspecific T wave abnormalities
[2019-08-06] MEDS ORDERED: ONDANSETRON 4 MG/2 ML VIAL ONE (10:59)
[2019-08-06] MEDS ORDERED: NICARDIPINE 25 MG in DEXTROSE 5%-WATER - 240 ML IVPB SCH (11:00)
[2019-08-06 11:04] VITALS: BMI 26.2
[2019-08-06 11:58] VITALS: TEMP 98.4
[2019-08-06 13:10] VITALS: BP 129/90; PULSE 79
--- NOTE | 2019-08-07 12:50 | EKG ---
Test Reason : Blood Pressure : / mmHG Vent. Rate : 087 BPM Atrial Rate : 088 BPM P-R Int : 192 ms QRS Dur : 134 ms QT Int : 402 ms P-R-T Axes : 063 -22 139 degrees QTc Int : 483 ms NORMAL SINUS RHYTHM WITH FREQUENT PREMATURE VENTRICULAR COMPLEXES LEFT VENTRICULAR HYPERTROPHY WITH QRS WIDENING AND REPOLARIZATION ABNORMALITY CANNOT RULE OUT INFERIOR INFARCT , AGE UNDETERMINED LEFT AXIS DEVIATION ABNORMAL ECG Confirmed by DOUG VASQUES MD ([id number]) on 08/07/2019 12:49:41 PM Referred By: Confirmed By:DOUG VASQUES MD
== END 2019-08-06 13:00 | disposition short-term general hospital (02) ==
LOC: JER 09:32 → SUPCPDRO 09:32 → JER 13:00
PROC: 3E033NZ Introduction of Analgesics, Hypnotics, Sedatives into Peripheral Vein, Percutaneous Approach (ICD-10-PCS; principal; 2019-08-06)
PROC: 3E033GC Introduction of Other Therapeutic Substance into Peripheral Vein, Percutaneous Approach (ICD-10-PCS; 2019-08-06)
PROC: 3E033GC Introduction of Other Therapeutic Substance into Peripheral Vein, Percutaneous Approach (ICD-10-PCS; 2019-08-06)
PROC: 3E033GC Introduction of Other Therapeutic Substance into Peripheral Vein, Percutaneous Approach (ICD-10-PCS; 2019-08-06)
DX: I62.00 Nontraumatic subdural hemorrhage, unspecified (principal); W18.39XA Other fall on same level, initial encounter; Y93.89 Activity, other specified; Y92.89 Other specified places as the place of occurrence of the external cause; Y99.8 Other external cause status; I25.10 Atherosclerotic heart disease of native coronary artery without angina pectoris; I10 Essential (primary) hypertension; I25.2 Old myocardial infarction; I49.9 Cardiac arrhythmia, unspecified; Z95.810 Presence of automatic (implantable) cardiac defibrillator; E03.9 Hypothyroidism, unspecified; E78.00 Pure hypercholesterolemia, unspecified; Z86.73 Personal history of transient ischemic attack (TIA), and cerebral infarction without residual deficits; Z79.01 Long term (current) use of anticoagulants
CPT/HCPCS: 36415; 70450-TC; 71045-TC-FY; 80053; 82550; 83735; 83880; 84484; 85025; 85610; 85730; 86850; 86900; 86901; 93005; 93010; 99291; J0131; P9017

== ENCOUNTER 2019-12-21 13:28 | Emergency (ER) | payer OTHER ==
[2019-12-21 13:48] VITALS: BMI 29.0
--- NOTE | 2019-12-21 13:50 | PDOC ---
Rapid Medical Evaluation Chief Complaint: Abnormal Lab Results (Outside) Time Seen by Provider: 12/21/19 13:41 Medical Evaluation: Allergies Allergy/AdvReac Type Severity Reaction Status Date / Time No Known Allergies Allergy Verified 03/17/19 09:32 12/21/19 13:46 I have performed a brief in-person evaluation of this patient. The patient presents with a chief complaint of: sent in by Dr Mavis Vaughn for vitamin K due to high INR of [address] Mavis Harris request repeat INR and vitamink K of 2.5mg. pt sent in due to medication now available in any outpatient pharmacy. Pt denies any symptoms Pertinent physical exam findings: A&O x3 in NAD I have ordered the following: PT/ INR, cbc The patient will proceed to the ED for further evaluation. Discharge Disposition - Diagnosis Abnormal laboratory test result - Discharge Dispostion Condition at time of disposition: Stable - Referrals - Patient Instructions - Post Discharge Activity
[2019-12-21 14:34] LABS: BASO % 0.9 % (0-2.0); EOS % 1.4 % (0-4.5); HEMATOCRIT 45.2 % (35.4-49); HEMOGLOBIN 14.5 GM/dL (11.7-16.9); LYMPH % 21.1 % (8-40); MCH 29.5 pg (25.7-33.7); MEAN CELL VOLUME 92.2 fl (80-96); MEAN PLT VOLUME 9.4 fl (7.5-11.1); MONO % 10.4 % (3.8-10.2); NEUT % 66.2 % (42.8-82.8); PLATELET COUNT 256 K/MM3 (134-434); RDW 13.1 % (11.9-15.9); WHITE BLOOD COUNT 7.1 K/mm3 (4.0-10.0)
--- NOTE | 2019-12-21 14:39 | PDOC ---
History of Present Illness - General Chief Complaint: Abnormal Lab Results (Outside) Stated Complaint: LAB Time Seen by Provider: 12/21/19 13:41 - History of Present Illness Initial Comments: 59 yo male with PMH of A.Fib, CHF, CVA with residual left sided weakness, HTN, HLD presents after having an INR measurement of ~8 at his PCP. He does not currently have active bleeding and denied bloody stools and hematuria. He does endorse intermittent transient gingival bleeding within the last month that is currently inactive. He has been taking warfarin 5mg for the past 10 years but was discontinued 4 days ago to switch to another anticoagulant. He denies nausea, vomiting, cp, sob, trauma, falls. He follows with Dr. Harris for PCP and Dr. Caldera for Cards. Past History - Medical History Allergies/Adverse Reactions: Allergies Allergy/AdvReac Type Severity Reaction Status Date / Time No Known Allergies Allergy Verified 03/17/19 09:32 Home Medications: Ambulatory Orders Warfarin Na [Coumadin -] 5 mg PO ASDIR 06/18/17 Levothyroxine [Synthroid -] 25 mcg PO DAILY@0700 #30 tablet 09/23/18 Furosemide [Lasix -] 40 mg PO BID@0600,1400 30 Days #60 tablet 03/21/19 Metoprolol Succinate [Toprol XL -] 12.5 mg PO DAILY 08/06/19 Cardiac Disorders: Yes (cardiomyopathy; mural thrombus, defibrilator) CVA: Yes COPD: No HTN: Yes Hypercholesterolemia: Yes Thyroid Disease: Yes (hypothyroid) - Surgical History Cardiac Surgery: Yes (ICD) - Immunization History Immunization Up to Date: Yes - Psycho-Social/Smoking History Smoking Status: No Smoking History: Former smoker Have you smoked in the past 12 months: No Number of Cigarettes Smoked Daily: 0 Information on smoking cessation initiated: No - Substance Abuse Hx (Audit-C & DAST Scrn) How often the patient has a drink containing alcohol: Monthly or less Number of drinks the patient has on a typical day: 1 or 2 How often the patient has six or more drinks on one occasion: Less than monthly Score: In Men: 4 or > Positive; In Women: 3 or > Positive: 2 Screen Result (Pos requires Nsg. Audit-10AR): Negative In the last yr the pt used illegal drug/Rx for NonMed reason: No Score: Yes response is considered Positive: 0 Screen Result (Positive result requires Nsg. DAST-10): Negative Review of Systems - Review of Systems Able to Perform ROS?: Yes Constitutional: No: Chills, Fever, Weakness HEENTM: No: Nose Bleeding (Denies oral bleeding) Respiratory: No: Cough, Shortness of Breath Cardiac (ROS): No: Chest Pain, Edema, Palpitations ABD/GI: No: Diarrhea, Nausea, Rectal Bleeding, Vomiting : No: Dysuria, Hematuria, Pain Musculoskeletal: No: Muscle Pain, Muscle Weakness Integumentary: No: Lesions, Rash Neurological: No: Headache, Dizziness Psychiatric: No: Anxiety, Depression Endocrine: No: Intolerance to Cold, Intolerance to Heat *Physical Exam - Vital Signs Last Vital Signs Temp Pulse Resp BP Pulse Ox 98.7 F 99 H 20 99/72 97 12/21/19 13:29 12/21/19 13:29 12/21/19 13:29 12/21/19 13:29 12/21/19 13:29 - Physical Exam General Appearance: Yes: Appropriately Dressed. No: Apparent Distress HEENT: positive: EOMI, Normal Voice Respiratory/Chest: positive: Lungs Clear, Normal Breath Sounds. negative: Respiratory Distress Cardiovascular: positive: Regular Rhythm, Regular Rate, S1, S2. negative: Edema, JVD Gastrointestinal/Abdominal: positive: Normal Bowel Sounds, Flat, Soft. negative: Tender, Guarding, Rebound, Tenderness Extremity: positive: Normal Capillary Refill, Normal Inspection, Normal Range of Motion Integumentary: positive: Normal Color, Dry, Warm Neurologic: positive: Fully Oriented, Alert, Normal Mood/Affect ED Treatment Course - LABORATORY CBC & Chemistry Diagram: 12/21/19 14:23 12/21/19 14:23 Medical Decision Making - Medical Decision Making 59 yo male with PMH of A.Fib on comadin presents with elevated INR of 8 without active signs of bleeding. CBC, CMP were... Repeat INR was measured at 10.12. He was given PO Vitamin K 5mg based on literature of INR >10 without active bleeding. He was instructed to follow up with his PCP upon discharge to monitor his INR and assess his bleeding and clotting risk. 12/21/19 16:02 Discharge - Discharge Information Problems reviewed: Yes Clinical Impression/Diagnosis: Abnormal laboratory test result, Elevated INR Condition: Stable Disposition: HOME - Admission No - Follow up/Referral Referrals: Sulma Acevedo MD [Primary Care Provider] - - Patient Discharge Instructions Patient Printed Discharge Instructions: DI for Warfarin Therapy Additional Instructions: You were evaluated today for an elevated INR. We measured a repeat INR of 10.1 and administered vitamin k (5mg) via oral route. Return to the ED if condition worsens and/or you experience bleeding (nasal, oral, urine, stool, skin etc). Follow up with your PCP as soon as possible for lobsterman control of your anticoagulants and to repeat your INR. - Post Discharge Activity
[2019-12-21 14:58] LABS: PROTHROMBIN TIME (PATIENT) 122.3 SEC (9.7-13.0)
[2019-12-21 15:03] LABS: INR 10.12 (0.83-1.09)
[2019-12-21] MEDS ORDERED: PHYTONADIONE 5 MG TABLET PO ONE (15:06)
[2019-12-21] MEDS ORDERED: PHYTONADIONE 5 MG TABLET ONE (15:21)
[2019-12-21 15:23] LABS: BILIRUBIN,TOTAL 0.4 mg/dL (0.2-1); BLOOD UREA NITROGEN 41.3 mg/dL (7-18); CALCIUM 9.3 mg/dL (8.5-10.1); CREATININE 2.8 mg/dL (0.55-1.3); POTASSIUM 4.4 mmol/L (3.5-5.1); TOT PROT 7.1 g/dl (6.4-8.2)
[2019-12-21 15:41] VITALS: BP 112/82; PULSE 84; TEMP 98.2
--- NOTE | 2019-12-21 15:51 | PDOC ---
Documentation entered by Vita Rivera SCRIBE, acting as scribe for Charito Wilhelm MD. Charito Wilhelm MD: This documentation has been prepared by the naniibNicole baum Sydney, SCRIBE, under my direction and personally reviewed by me in its entirety. I confirm that the documentation accurately reflects all work, treatment, procedures, and medical decision making performed by me. Attending Attestation - Resident Resident Name: AngelJoel - ED Attending Attestation I have performed the following: I have examined & evaluated the patient, The case was reviewed & discussed with the resident, I agree w/resident's findings & plan, Exceptions are as noted - HPI HPI: 12/21/19 14:59 The patient is a 59 year old male with a significant PMH of Afib (on Coumadin), CHF, CVA, HTN, HLD who presents to the emergency department, from his PCPs office, for further evaluation after a routine INR measurement of approximately 8. As per patient, Dr. Mavis Vaughn had referred him to the ED to follow-up on his lab results and to receive some vitamin K. The patient denies chest pain, shortness of breath, headache and dizziness, fever, chills, nausea, vomiting, diarrhea, constipation, or abnormal stools. Denies any other symptoms. Allergies: NKDA PCP: Dr. Vaughn - Physicial Exam PE: 12/21/19 15:39 GENERAL: well-appearing, very pleasant, A/Ox4, no distress, answers questions appropriately, sitting in chair in vertical room, cane at his side HEENT: wearing face mask, PERRLA, EOMI, moist mucous membranes, no conjunctival pallor, no gingival bleeding NECK/BACK: no midline ttp, no spinal stepoff or deformity, no hematoma, full ROM, neck supple CARDIOVASCULAR: regular rate/rhythm, no MGR, strong peripheral pulses, capillary refill <2 seconds, extremities wwp, no edema LUNGS/RESPIRATORY: no respiratory distress, CTAB GI/ABDOMEN: symmetric [id number], normoactive BS, soft, no ttp, no midline pulsatile masses : no CVA tenderness MSK/EXTREMITIES: no muscle atrophy, no acute deformity SKIN: warm and dry, no pallor, no jaundice, no rash, no pathologic-appearing bruising, no skin breakdown, no cuts, no lesions NEUROLOGICAL: GCS 15, CN II-XII grossly intact, 5/5 strength proximally and distally, no facial droop - Medical Decision Making 12/21/19 15:40 59YOM with h/o A-fib on Coumadin who p/w rising INR measured in on outpatient labs to be >8. Patient states asymptomatic except mild bleeding in his gums intermittently which is not uncommon for him. Initial Vital Signs Temp Pulse Resp BP Pulse Ox 98.7 F 99 H 20 99/72 97 12/21/19 13:29 12/21/19 13:29 12/21/19 13:29 12/21/19 13:29 12/21/19 13:29 Most likely supratherapeutic INR with Coumadin dose needing to be adjusted by outpatient providers. Labs ordered as below and patient will be given vitamin K PO. Laboratory Results 12/21/19 12/21/19 14:23 14:23 PT with INR 122.30 H INR 10.12 H* PTT (Actin FS) 77.0 H Sodium 138 Potassium 4.4 Chloride 105 Carbon Dioxide 21 Anion Gap 11 BUN 41.3 H Creatinine 2.8 H Est GFR (CKD-EPI)AfAm 27.18 Est GFR (CKD-EPI)NonAf 23.46 Random Glucose 120 H Calcium 9.3 Total Bilirubin 0.4 AST 60 H ALT 97 H Alkaline Phosphatase 99 Total Protein 7.1 Albumin 4.0 12/21/19 14:23 RBC 4.90 MCV 92.2 MCHC 32.0 RDW 13.1 MPV 9.4 D Neutrophils % 66.2 Lymphocytes % 21.1 Monocytes % 10.4 H Eosinophils % 1.4 Basophils % 0.9 Labs per baseline CKD and LFT values. INR 10.1 and patient will be given 5 mg vitamin K PO, and will hold his Coumadin dose until he can be see by his PCP tomorrow morning (as previously scheduled). He is comfortable with this plan, return precautions are discussed, he will follow up tomorrow. Discharge - Discharge Information Problems reviewed: Yes Clinical Impression/Diagnosis: Abnormal laboratory test result, Elevated INR Condition: Stable Disposition: HOME - Admission No - Follow up/Referral Referrals: Sulma Acevedo MD [Primary Care Provider] - - Patient Discharge Instructions Patient Printed Discharge Instructions: DI for Warfarin Therapy Additional Instructions: You were evaluated today for an elevated INR. We measured a repeat INR of 10.1 and administered vitamin k (5mg) via oral route. Return to the ED if condition worsens and/or you experience bleeding (nasal, oral, urine, stool, skin etc). Follow up with your PCP as soon as possible for bed bug exterminator control of your INR. - Post Discharge Activity
== END 2019-12-21 15:49 | disposition home or self-care (01) ==
LOC: JER 13:28
DX: R79.9 Abnormal finding of blood chemistry, unspecified (principal); R79.1 Abnormal coagulation profile
CPT/HCPCS: 36415; 80053; 85025; 85610; 85730; 99283-25

== ENCOUNTER 2020-09-03 10:41 | Inpatient (IN) | payer OTHER ==
[2020-09-03 11:58] LABS: BASO % 0.7 % (0-2.0); EOS % 0.7 % (0-4.5); HEMATOCRIT 41.4 % (35.4-49); HEMOGLOBIN 13.5 GM/dL (11.7-16.9); LYMPH % 9.4 % (8-40); MCH 30.6 pg (25.7-33.7); MCHC 32.6 g/dl (32.0-35.9); MEAN CELL VOLUME 93.9 fl (80-96); MEAN PLT VOLUME 9.9 fl (7.5-11.1); MONO % 12.2 % (3.8-10.2); PLATELET COUNT 199 K/MM3 (134-434); RBC 4.41 M/mm3 (4.00-5.60); RDW 13.2 % (11.9-15.9); WHITE BLOOD COUNT 9.2 K/mm3 (4.0-10.0)
[2020-09-03 12:10] LABS: INR 3.57 (0.83-1.09); PROTHROMBIN TIME (PATIENT) 42.3 SEC (9.7-13.0)
[2020-09-03 12:24] LABS: ALBUMIN 3.6 g/dl (3.4-5.0)
[2020-09-03 12:25] LABS: BLOOD UREA NITROGEN 38.1 mg/dL (7-18)
[2020-09-03 12:29] LABS: BILIRUBIN,TOTAL 0.5 mg/dL (0.2-1); TOT PROT 6.6 g/dl (6.4-8.2)
[2020-09-03 12:35] LABS: LACTIC ACID 2.2 mmol/L (0.4-2.0)
[2020-09-03] MEDS ORDERED: SODIUM CHLORIDE 1,000 ML IV SCH (13:45)
[2020-09-04] MEDS: LEVOTHYROXINE NA 25 MCG TABLET (FP) PO SCH (06:00)
[2020-09-04 07:31] LABS: BASO % 0.6 % (0-2.0); EOS % 1.4 % (0-4.5); HEMATOCRIT 36.7 % (35.4-49); HEMOGLOBIN 12.1 GM/dL (11.7-16.9); LYMPH % 17.1 % (8-40); MCHC 32.9 g/dl (32.0-35.9); MEAN CELL VOLUME 94.4 fl (80-96); MEAN PLT VOLUME 9.8 fl (7.5-11.1); MONO % 15.9 % (3.8-10.2); PLATELET COUNT 156 K/MM3 (134-434); RBC 3.89 M/mm3 (4.00-5.60); RDW 12.9 % (11.9-15.9); WHITE BLOOD COUNT 7.4 K/mm3 (4.0-10.0)
[2020-09-04 07:49] LABS: INR 2.41 (0.83-1.09); PROTHROMBIN TIME (PATIENT) 28.9 SEC (9.7-13.0)
[2020-09-04 07:57] LABS: ALBUMIN 3.2 g/dl (3.4-5.0); CALCIUM 8.5 mg/dL (8.5-10.1)
[2020-09-04 07:58] LABS: BLOOD UREA NITROGEN 32.9 mg/dL (7-18)
[2020-09-04 08:00] LABS: CREATININE 2.3 mg/dL (0.55-1.3)
[2020-09-04 08:01] LABS: BILIRUBIN,TOTAL 0.7 mg/dL (0.2-1)
[2020-09-04 08:02] LABS: TOT PROT 5.6 g/dl (6.4-8.2)
[2020-09-04 08:08] LABS: BILIRUBIN,DIRECT 0.2 mg/dL (0.0-0.2); BILIRUBIN,TOTAL 0.6 mg/dL (0.2-1); TOT PROT 5.5 g/dl (6.4-8.2)
[2020-09-04] MEDS: PANTOPRAZOLE SODIUM 40 MG VIAL IVPUSH SCH (10:10)
[2020-09-04] MEDS: AMIODARONE HCL 200 MG TABLET PO SCH (21:10)
[2020-09-04] MEDS: levETIRAcetam 500 MG TABLET (FP) PO SCH (21:10)
[2020-09-05] MEDS: LEVOTHYROXINE NA 25 MCG TABLET (FP) PO SCH (06:34)
[2020-09-05 07:44] LABS: HEMATOCRIT 37.8 % (35.4-49); HEMOGLOBIN 12.7 GM/dL (11.7-16.9); MCH 31.2 pg (25.7-33.7); MCHC 33.5 g/dl (32.0-35.9); MEAN PLT VOLUME 9.5 fl (7.5-11.1); PLATELET COUNT 170 K/MM3 (134-434); RBC 4.07 M/mm3 (4.00-5.60); RDW 12.8 % (11.9-15.9); WHITE BLOOD COUNT 7.1 K/mm3 (4.0-10.0)
[2020-09-05 07:46] LABS: ALBUMIN 3.2 g/dl (3.4-5.0); CALCIUM 8.6 mg/dL (8.5-10.1)
[2020-09-05 07:49] LABS: BILIRUBIN,DIRECT 0.2 mg/dL (0.0-0.2); CREATININE 2.2 mg/dL (0.55-1.3)
[2020-09-05 07:51] LABS: BILIRUBIN,TOTAL 0.6 mg/dL (0.2-1); TOT PROT 5.7 g/dl (6.4-8.2)
[2020-09-05 07:53] LABS: INR 1.85 (0.83-1.09)
[2020-09-05] MEDS: VALSARTAN 40 MG TABLET PO SCH (09:49)
[2020-09-05] MEDS: levETIRAcetam 500 MG TABLET (FP) PO SCH ×2 (09:49→22:26)
[2020-09-05] MEDS: METOPROLOL TARTRATE 50 MG TABLET (FP) PO SCH (09:49)
[2020-09-05] MEDS: AMIODARONE HCL 200 MG TABLET PO SCH ×2 (09:49→22:26)
[2020-09-05] MEDS: PANTOPRAZOLE SODIUM 40 MG VIAL IVPUSH SCH (09:49)
[2020-09-05] MEDS: SPIRONOLACTONE 25 MG TABLET PO SCH (09:49)
[2020-09-05] MEDS: MEXILETINE HCL 200 MG PO SCH ×2 (09:50→22:26)
[2020-09-05] MEDS: LIPASE/PROTEASE/AMYLASE 36,000 UNIT CAPSULE PO SCH ×2 (12:25→17:07)
[2020-09-05] MEDS: POLYETHYLENE GLYCOL 3350 119 GM BTL PO SCH (12:26)
[2020-09-05] MEDS: metroNIDAZOLE 250 MG TABLET PO SCH ×2 (13:38→22:26)
[2020-09-06] MEDS: LEVOTHYROXINE NA 25 MCG TABLET (FP) PO SCH (06:29)
[2020-09-06] MEDS: metroNIDAZOLE 250 MG TABLET PO SCH ×3 (06:29→22:33)
[2020-09-06 07:58] LABS: BASO % 0.9 % (0-2.0); HEMATOCRIT 39.8 % (35.4-49); HEMOGLOBIN 13.1 GM/dL (11.7-16.9); LYMPH % 22.7 % (8-40); MCH 31.2 pg (25.7-33.7); MCHC 32.8 g/dl (32.0-35.9); MEAN CELL VOLUME 95.1 fl (80-96); MEAN PLT VOLUME 10.1 fl (7.5-11.1); MONO % 16.3 % (3.8-10.2); NEUT % 58.1 % (42.8-82.8); PLATELET COUNT 176 K/MM3 (134-434); RBC 4.19 M/mm3 (4.00-5.60); RDW 12.9 % (11.9-15.9); WHITE BLOOD COUNT 9.7 K/mm3 (4.0-10.0)
[2020-09-06 08:10] LABS: ALBUMIN 3.2 g/dl (3.4-5.0)
[2020-09-06 08:13] LABS: BILIRUBIN,DIRECT 0.1 mg/dL (0.0-0.2)
[2020-09-06 08:15] LABS: BILIRUBIN,TOTAL 0.4 mg/dL (0.2-1)
[2020-09-06] MEDS: MEXILETINE HCL 200 MG PO SCH ×2 (10:26→22:42)
[2020-09-06] MEDS: LIPASE/PROTEASE/AMYLASE 36,000 UNIT CAPSULE PO SCH ×3 (10:27→18:30)
[2020-09-06] MEDS: VALSARTAN 40 MG TABLET PO SCH (10:27)
[2020-09-06] MEDS: SPIRONOLACTONE 25 MG TABLET PO SCH (10:27)
[2020-09-06] MEDS: AMIODARONE HCL 200 MG TABLET PO SCH ×2 (10:27→22:33)
[2020-09-06] MEDS: METOPROLOL TARTRATE 50 MG TABLET (FP) PO SCH (10:28)
[2020-09-06] MEDS: POLYETHYLENE GLYCOL 3350 119 GM BTL PO SCH (10:29)
[2020-09-06] MEDS: PANTOPRAZOLE SODIUM 40 MG VIAL IVPUSH SCH (10:30)
[2020-09-06] MEDS: levETIRAcetam 500 MG TABLET (FP) PO SCH ×2 (10:30→22:33)
[2020-09-06 13:03] LABS: INR 1.47 (0.83-1.09); PROTHROMBIN TIME (PATIENT) 17.6 SEC (9.7-13.0)
[2020-09-07] MEDS: metroNIDAZOLE 250 MG TABLET PO SCH ×3 (05:37→21:46)
[2020-09-07] MEDS: LEVOTHYROXINE NA 25 MCG TABLET (FP) PO SCH (06:22)
[2020-09-07 07:24] LABS: HEMATOCRIT 37.8 % (35.4-49); HEMOGLOBIN 12.5 GM/dL (11.7-16.9); MCH 30.9 pg (25.7-33.7); MCHC 32.9 g/dl (32.0-35.9); MEAN CELL VOLUME 93.7 fl (80-96); PLATELET COUNT 171 K/MM3 (134-434); RBC 4.04 M/mm3 (4.00-5.60); RDW 12.9 % (11.9-15.9); WHITE BLOOD COUNT 8.5 K/mm3 (4.0-10.0)
[2020-09-07 07:27] LABS: INR 1.35 (0.83-1.09); PROTHROMBIN TIME (PATIENT) 16.2 SEC (9.7-13.0)
[2020-09-07 08:26] LABS: CALCIUM 8.5 mg/dL (8.5-10.1)
[2020-09-07 08:27] LABS: BLOOD UREA NITROGEN 21.7 mg/dL (7-18)
[2020-09-07 08:30] LABS: BILIRUBIN,DIRECT 0.1 mg/dL (0.0-0.2)
[2020-09-07 08:31] LABS: BILIRUBIN,TOTAL 0.5 mg/dL (0.2-1); TOT PROT 5.5 g/dl (6.4-8.2)
[2020-09-07] MEDS ORDERED: WARFARIN NA 5 MG TABLET PO ONE (10:01)
[2020-09-07] MEDS: VALSARTAN 40 MG TABLET PO SCH (10:04)
[2020-09-07] MEDS: LIPASE/PROTEASE/AMYLASE 36,000 UNIT CAPSULE PO SCH ×3 (10:04→17:56)
[2020-09-07] MEDS: levETIRAcetam 500 MG TABLET (FP) PO SCH ×2 (10:05→21:46)
[2020-09-07] MEDS: AMIODARONE HCL 200 MG TABLET PO SCH ×2 (10:05→21:46)
[2020-09-07] MEDS: POLYETHYLENE GLYCOL 3350 119 GM BTL PO SCH (10:05)
[2020-09-07] MEDS: SPIRONOLACTONE 25 MG TABLET PO SCH (10:05)
[2020-09-07] MEDS: METOPROLOL TARTRATE 50 MG TABLET (FP) PO SCH (10:05)
[2020-09-07] MEDS: PANTOPRAZOLE SODIUM 40 MG VIAL IVPUSH SCH (10:07)
[2020-09-07] MEDS ORDERED: SENNOSIDES 8.6MG TABLET (FP) PO PRN (11:24)
[2020-09-07] MEDS: MEXILETINE HCL 200 MG PO SCH ×2 (13:51→21:47)
[2020-09-07] MEDS ORDERED: PT OWN MED DRAWER 7, Y5N ONE (22:04)
[2020-09-08] MEDS: POLYETHYLENE GLYCOL 3350 119 GM BTL PO SCH ×3 (00:15→22:18)
[2020-09-08] MEDS: LEVOTHYROXINE NA 25 MCG TABLET (FP) PO SCH (06:15)
[2020-09-08] MEDS: metroNIDAZOLE 250 MG TABLET PO SCH ×3 (06:15→22:16)
[2020-09-08 07:38] LABS: HEMATOCRIT 39.2 % (35.4-49); HEMOGLOBIN 12.8 GM/dL (11.7-16.9); MCH 30.9 pg (25.7-33.7); MCHC 32.7 g/dl (32.0-35.9); MEAN CELL VOLUME 94.4 fl (80-96); MEAN PLT VOLUME 9.8 fl (7.5-11.1); PLATELET COUNT 182 K/MM3 (134-434); RBC 4.15 M/mm3 (4.00-5.60); RDW 13.3 % (11.9-15.9); WHITE BLOOD COUNT 8.2 K/mm3 (4.0-10.0)
[2020-09-08 07:46] LABS: INR 1.17 (0.83-1.09); PROTHROMBIN TIME (PATIENT) 14.3 SEC (9.7-13.0)
[2020-09-08 08:04] LABS: CALCIUM 8.5 mg/dL (8.5-10.1)
[2020-09-08 08:05] LABS: ALBUMIN 3.2 g/dl (3.4-5.0); BLOOD UREA NITROGEN 21.7 mg/dL (7-18)
[2020-09-08 08:08] LABS: CREATININE 2.1 mg/dL (0.55-1.3)
[2020-09-08 08:09] LABS: BILIRUBIN,TOTAL 0.5 mg/dL (0.2-1); TOT PROT 5.8 g/dl (6.4-8.2)
[2020-09-08] MEDS ORDERED: PT OWN MED DRAWER 7, Y5N ONE ×3 (09:54→16:57)
[2020-09-08] MEDS: PANTOPRAZOLE 40 MG TABLET PO SCH (09:56)
[2020-09-08] MEDS: MEXILETINE HCL 200 MG PO SCH ×2 (09:56→22:16)
[2020-09-08] MEDS: levETIRAcetam 500 MG TABLET (FP) PO SCH ×2 (09:56→22:16)
[2020-09-08] MEDS: LIPASE/PROTEASE/AMYLASE 36,000 UNIT CAPSULE PO SCH ×3 (09:56→17:05)
[2020-09-08] MEDS: AMIODARONE HCL 200 MG TABLET PO SCH ×2 (11:35→22:16)
[2020-09-08] MEDS: METOPROLOL TARTRATE 50 MG TABLET (FP) PO SCH (11:35)
[2020-09-08] MEDS: SPIRONOLACTONE 25 MG TABLET PO SCH (11:35)
[2020-09-08] MEDS: VALSARTAN 40 MG TABLET PO SCH (11:35)
[2020-09-08] MEDS ORDERED: MAGNESIUM HYDROX 2400MG/30ML ORAL SUSPENSION 30 ML CUP PO ONE (11:56)
[2020-09-08 13:45] LABS: HEMATOCRIT 37.8 % (35.4-49); HEMOGLOBIN 12.6 GM/dL (11.7-16.9); MCH 30.9 pg (25.7-33.7); MCHC 33.2 g/dl (32.0-35.9); PLATELET COUNT 166 K/MM3 (134-434); RBC 4.07 M/mm3 (4.00-5.60); RDW 13.2 % (11.9-15.9)
[2020-09-08] MEDS ORDERED: WARFARIN NA 7.5 MG TABLET PO SCH (18:00)
[2020-09-08] MEDS ORDERED: WARFARIN NA 5 MG TABLET PO SCH (18:00)
[2020-09-08] MEDS ORDERED: ENOXAPARIN NA (PORCINE) 100 MG/1 ML DISP.SYRIN SQ SCH (22:00)
[2020-09-09] MEDS: LEVOTHYROXINE NA 25 MCG TABLET (FP) PO SCH (06:50)
[2020-09-09] MEDS: metroNIDAZOLE 250 MG TABLET PO SCH ×3 (06:50→21:29)
[2020-09-09] MEDS: MEXILETINE HCL 200 MG PO SCH ×2 (09:11→21:29)
[2020-09-09] MEDS: LIPASE/PROTEASE/AMYLASE 36,000 UNIT CAPSULE PO SCH ×3 (09:12→17:04)
[2020-09-09] MEDS: POLYETHYLENE GLYCOL 3350 119 GM BTL PO SCH ×2 (09:12→23:00)
[2020-09-09] MEDS: levETIRAcetam 500 MG TABLET (FP) PO SCH ×2 (09:12→21:29)
[2020-09-09] MEDS: PANTOPRAZOLE 40 MG TABLET PO SCH (09:12)
[2020-09-09] MEDS: METOPROLOL TARTRATE 50 MG TABLET (FP) PO SCH (10:43)
[2020-09-09] MEDS: SPIRONOLACTONE 25 MG TABLET PO SCH (10:43)
[2020-09-09] MEDS: VALSARTAN 40 MG TABLET PO SCH (10:43)
[2020-09-09] MEDS: AMIODARONE HCL 200 MG TABLET PO SCH ×2 (10:43→21:29)
[2020-09-09 11:11] LABS: HEMATOCRIT 38.4 % (35.4-49); HEMOGLOBIN 12.8 GM/dL (11.7-16.9); MCH 31.1 pg (25.7-33.7); MCHC 33.3 g/dl (32.0-35.9); MEAN CELL VOLUME 93.6 fl (80-96); MEAN PLT VOLUME 10.2 fl (7.5-11.1); PLATELET COUNT 183 K/MM3 (134-434); RDW 13.4 % (11.9-15.9); WHITE BLOOD COUNT 6.6 K/mm3 (4.0-10.0)
[2020-09-09 11:20] LABS: INR 1.36 (0.83-1.09); PROTHROMBIN TIME (PATIENT) 16.6 SEC (9.7-13.0)
[2020-09-09] MEDS ORDERED: PT OWN MED DRAWER 7, Y5N ONE (23:46)
[2020-09-10] MEDS: metroNIDAZOLE 250 MG TABLET PO SCH ×3 (06:26→22:50)
[2020-09-10] MEDS: LEVOTHYROXINE NA 25 MCG TABLET (FP) PO SCH (06:26)
[2020-09-10] MEDS: MEXILETINE HCL 200 MG PO SCH ×2 (09:50→22:50)
[2020-09-10] MEDS: VALSARTAN 40 MG TABLET PO SCH (09:51)
[2020-09-10] MEDS: SPIRONOLACTONE 25 MG TABLET PO SCH (09:51)
[2020-09-10] MEDS: levETIRAcetam 500 MG TABLET (FP) PO SCH ×2 (09:51→22:50)
[2020-09-10] MEDS: PANTOPRAZOLE 40 MG TABLET PO SCH (09:51)
[2020-09-10] MEDS: LIPASE/PROTEASE/AMYLASE 36,000 UNIT CAPSULE PO SCH ×3 (09:51→16:43)
[2020-09-10] MEDS: POLYETHYLENE GLYCOL 3350 119 GM BTL PO SCH ×2 (09:52→22:51)
[2020-09-10] MEDS: AMIODARONE HCL 200 MG TABLET PO SCH ×2 (09:57→22:50)
[2020-09-10] MEDS: METOPROLOL TARTRATE 50 MG TABLET (FP) PO SCH (09:57)
[2020-09-10] MEDS ORDERED: PT OWN MED DRAWER 7, Y5N ONE (12:38)
[2020-09-10] MEDS: GABAPENTIN 100 MG CAPSULE PO SCH ×2 (14:40→22:50)
[2020-09-11] MEDS: LEVOTHYROXINE NA 25 MCG TABLET (FP) PO SCH (06:51)
[2020-09-11] MEDS: GABAPENTIN 100 MG CAPSULE PO SCH ×3 (06:51→22:36)
[2020-09-11] MEDS: metroNIDAZOLE 250 MG TABLET PO SCH ×3 (06:51→22:36)
[2020-09-11 08:28] LABS: EOS % 1.9 % (0-4.5); HEMATOCRIT 39.4 % (35.4-49); HEMOGLOBIN 12.7 GM/dL (11.7-16.9); LYMPH % 19.4 % (8-40); MCH 30.7 pg (25.7-33.7); MCHC 32.3 g/dl (32.0-35.9); MEAN PLT VOLUME 10.1 fl (7.5-11.1); NEUT % 60.7 % (42.8-82.8); PLATELET COUNT 172 K/MM3 (134-434); RBC 4.14 M/mm3 (4.00-5.60); RDW 13.5 % (11.9-15.9)
[2020-09-11 08:45] LABS: CALCIUM 8.7 mg/dL (8.5-10.1)
[2020-09-11 08:46] LABS: ALBUMIN 3.3 g/dl (3.4-5.0); BLOOD UREA NITROGEN 25.3 mg/dL (7-18)
[2020-09-11 08:49] LABS: CREATININE 2.3 mg/dL (0.55-1.3)
[2020-09-11 08:51] LABS: BILIRUBIN,TOTAL 0.4 mg/dL (0.2-1)
[2020-09-11] MEDS ORDERED: PT OWN MED DRAWER 7, Y5N ONE (08:59)
[2020-09-11] MEDS: AMIODARONE HCL 200 MG TABLET PO SCH ×2 (09:08→22:36)
[2020-09-11] MEDS: PANTOPRAZOLE 40 MG TABLET PO SCH (09:09)
[2020-09-11] MEDS: METOPROLOL TARTRATE 50 MG TABLET (FP) PO SCH (09:09)
[2020-09-11] MEDS: SPIRONOLACTONE 25 MG TABLET PO SCH (09:09)
[2020-09-11] MEDS: LIPASE/PROTEASE/AMYLASE 36,000 UNIT CAPSULE PO SCH ×3 (09:09→16:42)
[2020-09-11] MEDS: VALSARTAN 40 MG TABLET PO SCH (09:09)
[2020-09-11] MEDS: levETIRAcetam 500 MG TABLET (FP) PO SCH ×2 (09:09→22:36)
[2020-09-11] MEDS: MEXILETINE HCL 200 MG PO SCH ×2 (09:09→22:36)
[2020-09-11] MEDS ORDERED: BISACODYL 5 MG TABLET.DR (FP) PO ONE ×2 (11:59→17:00)
[2020-09-11] MEDS ORDERED: SODIUM PHOSPHATE/NA BIPHOS 133 ML ENEMA PR ONE (11:59)
[2020-09-11] MEDS ORDERED: MAGNESIUM CITRATE 300 ML BOTTLE PO ONE (11:59)
[2020-09-11] MEDS ORDERED: POLYETHYLENE GLYCOL 3350 255 GM BTL PO ONE (12:03)
[2020-09-11] MEDS: POLYETHYLENE GLYCOL 3350 119 GM BTL PO SCH (13:47)
[2020-09-11] MEDS ORDERED: SODIUM CHLORIDE NASAL SPRAY 44 ML BOTTLE NS PRN (16:09)
[2020-09-12] MEDS ORDERED: MINERAL OIL ENEMA 133 ML ENEMA PR ONE (04:00)
[2020-09-12] MEDS ORDERED: KETAMINE HCL 500 MG/10 ML VIAL ONE (07:08)
[2020-09-12] MEDS: metroNIDAZOLE 250 MG TABLET PO SCH (07:13)
[2020-09-12] MEDS: LEVOTHYROXINE NA 25 MCG TABLET (FP) PO SCH (07:14)
[2020-09-12] MEDS: GABAPENTIN 100 MG CAPSULE PO SCH ×3 (07:14→22:32)
[2020-09-12] MEDS ORDERED: LIDOCAINE HCL 2% JELLY 10 ML CARTRIDGE ONE (08:09)
[2020-09-12] MEDS ORDERED: LIDOCAINE HCL 2% 100 MG/5 ML DISP.SYRIN ONE ×2 (08:11→12:30)
[2020-09-12] MEDS ORDERED: LIDOCAINE HCL 2% (50ML VIAL) NR ONE (08:15)
[2020-09-12] MEDS: SPIRONOLACTONE 25 MG TABLET PO SCH (09:54)
[2020-09-12] MEDS: LIPASE/PROTEASE/AMYLASE 36,000 UNIT CAPSULE PO SCH ×3 (09:54→16:56)
[2020-09-12] MEDS: levETIRAcetam 500 MG TABLET (FP) PO SCH ×2 (09:54→22:32)
[2020-09-12] MEDS: PANTOPRAZOLE 40 MG TABLET PO SCH (09:54)
[2020-09-12] MEDS: VALSARTAN 40 MG TABLET PO SCH (09:54)
[2020-09-12] MEDS: AMIODARONE HCL 200 MG TABLET PO SCH ×2 (09:54→22:32)
[2020-09-12] MEDS: METOPROLOL TARTRATE 50 MG TABLET (FP) PO SCH (09:54)
[2020-09-12] MEDS: MEXILETINE HCL 200 MG PO SCH ×2 (09:56→22:32)
[2020-09-12] MEDS ORDERED: HEPARIN NA (PORCINE) 5,000 UNITS/ML 1ML VIAL IVPUSH PRN ×2 (10:32)
[2020-09-12] MEDS: HEPARIN SOD,PORK IN 0.45% NACL 25,000 UNITS/500 ML INFUS.BAG IVPB SCH ×2 (11:52→14:28)
[2020-09-13] MEDS: HEPARIN SOD,PORK IN 0.45% NACL 25,000 UNITS/500 ML INFUS.BAG IVPB SCH ×2 (02:35→15:20)
[2020-09-13] MEDS: GABAPENTIN 100 MG CAPSULE PO SCH ×3 (06:19→22:15)
[2020-09-13] MEDS: LEVOTHYROXINE NA 25 MCG TABLET (FP) PO SCH (06:19)
[2020-09-13 08:56] LABS: BASO % 0.8 % (0-2.0); EOS % 1.2 % (0-4.5); HEMATOCRIT 38.1 % (35.4-49); HEMOGLOBIN 12.7 GM/dL (11.7-16.9); MCH 31.4 pg (25.7-33.7); MCHC 33.4 g/dl (32.0-35.9); MEAN CELL VOLUME 94.2 fl (80-96); MEAN PLT VOLUME 10.5 fl (7.5-11.1); MONO % 13.5 % (3.8-10.2); NEUT % 72.5 % (42.8-82.8); PLATELET COUNT 172 K/MM3 (134-434); RBC 4.04 M/mm3 (4.00-5.60); RDW 13.6 % (11.9-15.9); WHITE BLOOD COUNT 7.8 K/mm3 (4.0-10.0)
[2020-09-13 09:34] LABS: ALBUMIN 3.4 g/dl (3.4-5.0); BILIRUBIN,TOTAL 0.6 mg/dL (0.2-1); BLOOD UREA NITROGEN 22.2 mg/dL (7-18); CALCIUM 8.7 mg/dL (8.5-10.1); CREATININE 2.3 mg/dL (0.55-1.3); TOT PROT 6.1 g/dl (6.4-8.2)
[2020-09-13] MEDS: LIPASE/PROTEASE/AMYLASE 36,000 UNIT CAPSULE PO SCH ×3 (09:58→16:35)
[2020-09-13] MEDS: levETIRAcetam 500 MG TABLET (FP) PO SCH ×2 (09:59→22:15)
[2020-09-13] MEDS: AMIODARONE HCL 200 MG TABLET PO SCH ×2 (09:59→22:15)
[2020-09-13] MEDS: PANTOPRAZOLE 40 MG TABLET PO SCH (09:59)
[2020-09-13] MEDS: METOPROLOL TARTRATE 50 MG TABLET (FP) PO SCH (09:59)
[2020-09-13] MEDS: SPIRONOLACTONE 25 MG TABLET PO SCH (09:59)
[2020-09-13] MEDS: VALSARTAN 40 MG TABLET PO SCH (09:59)
[2020-09-13] MEDS: MEXILETINE HCL 200 MG PO SCH ×2 (10:00→22:15)
[2020-09-14] MEDS: GABAPENTIN 100 MG CAPSULE PO SCH ×3 (06:01→21:34)
[2020-09-14] MEDS: LEVOTHYROXINE NA 25 MCG TABLET (FP) PO SCH (06:01)
[2020-09-14 08:09] LABS: HEMATOCRIT 40.1 % (35.4-49); HEMOGLOBIN 13.1 GM/dL (11.7-16.9); MCH 31.1 pg (25.7-33.7); MCHC 32.7 g/dl (32.0-35.9); MEAN CELL VOLUME 95.2 fl (80-96); MEAN PLT VOLUME 10.7 fl (7.5-11.1); PLATELET COUNT 185 K/MM3 (134-434); RBC 4.21 M/mm3 (4.00-5.60); RDW 13.6 % (11.9-15.9); WHITE BLOOD COUNT 9.6 K/mm3 (4.0-10.0)
[2020-09-14] MEDS: AMIODARONE HCL 200 MG TABLET PO SCH ×2 (09:41→21:34)
[2020-09-14] MEDS: METOPROLOL TARTRATE 50 MG TABLET (FP) PO SCH (09:41)
[2020-09-14] MEDS: VALSARTAN 40 MG TABLET PO SCH (09:41)
[2020-09-14] MEDS: PANTOPRAZOLE 40 MG TABLET PO SCH (09:41)
[2020-09-14] MEDS: SPIRONOLACTONE 25 MG TABLET PO SCH (09:41)
[2020-09-14] MEDS: LIPASE/PROTEASE/AMYLASE 36,000 UNIT CAPSULE PO SCH ×3 (09:42→17:00)
[2020-09-14] MEDS: MEXILETINE HCL 200 MG PO SCH ×2 (09:43→21:34)
[2020-09-14] MEDS: levETIRAcetam 500 MG TABLET (FP) PO SCH ×2 (09:43→21:34)
[2020-09-14] MEDS: HEPARIN SOD,PORK IN 0.45% NACL 25,000 UNITS/500 ML INFUS.BAG IVPB SCH (15:09)
[2020-09-14] MEDS ORDERED: WARFARIN NA 7.5 MG TABLET PO SCH (18:00)
[2020-09-15] MEDS: GABAPENTIN 100 MG CAPSULE PO SCH ×3 (06:04→23:24)
[2020-09-15] MEDS: LEVOTHYROXINE NA 25 MCG TABLET (FP) PO SCH (06:04)
[2020-09-15 07:51] LABS: HEMATOCRIT 39.8 % (35.4-49); HEMOGLOBIN 12.9 GM/dL (11.7-16.9); MCH 31.1 pg (25.7-33.7); MCHC 32.5 g/dl (32.0-35.9); MEAN CELL VOLUME 95.7 fl (80-96); MEAN PLT VOLUME 10.4 fl (7.5-11.1); PLATELET COUNT 199 K/MM3 (134-434); RBC 4.16 M/mm3 (4.00-5.60); WHITE BLOOD COUNT 10.3 K/mm3 (4.0-10.0)
[2020-09-15 07:59] LABS: INR 1.14 (0.83-1.09); PROTHROMBIN TIME (PATIENT) 13.7 SEC (9.7-13.0)
[2020-09-15 08:02] LABS: ACTIVATED PTT 68.7 SECONDS (25.2-36.5)
[2020-09-15] MEDS: PANTOPRAZOLE 40 MG TABLET PO SCH (10:04)
[2020-09-15] MEDS: VALSARTAN 40 MG TABLET PO SCH (10:04)
[2020-09-15] MEDS: levETIRAcetam 500 MG TABLET (FP) PO SCH ×2 (10:04→23:24)
[2020-09-15] MEDS: MEXILETINE HCL 200 MG PO SCH ×2 (10:04→23:24)
[2020-09-15] MEDS: SPIRONOLACTONE 25 MG TABLET PO SCH (10:04)
[2020-09-15] MEDS: AMIODARONE HCL 200 MG TABLET PO SCH ×2 (10:04→23:24)
[2020-09-15] MEDS: METOPROLOL TARTRATE 50 MG TABLET (FP) PO SCH (10:04)
[2020-09-15] MEDS: LIPASE/PROTEASE/AMYLASE 36,000 UNIT CAPSULE PO SCH ×3 (10:05→17:28)
[2020-09-15] MEDS ORDERED: PT OWN MED DRAWER 7, Y5N ONE ×3 (11:52→21:17)
[2020-09-15] MEDS: HEPARIN SOD,PORK IN 0.45% NACL 25,000 UNITS/500 ML INFUS.BAG IVPB SCH (15:44)
[2020-09-15] MEDS ORDERED: SODIUM CHLORIDE 1,000 ML IV SCH (17:45)
[2020-09-15] MEDS ORDERED: ASPIRIN 81 MG CHEWABLE TABLETS PO ONE (18:09)
[2020-09-15] MEDS ORDERED: ASPIRIN 325 MG ENTERIC COATED TABLET (FP) PO ONE (18:14)
[2020-09-15] MEDS ORDERED: ATORVASTATIN CA 80 MG TABLET (FP) PO ONE (18:14)
[2020-09-15] MEDS ORDERED: LACTATED RINGERS SOLUTION 1,000 ML/1,000 ML INFUS.BAG IV SCH ×2 (18:15→22:06)
[2020-09-15 21:09] LABS: BASO % 0.6 % (0-2.0); EOS % 1.3 % (0-4.5); HEMOGLOBIN 12.8 GM/dL (11.7-16.9); LYMPH % 14.6 % (8-40); MCH 30.7 pg (25.7-33.7); MEAN CELL VOLUME 95.9 fl (80-96); MEAN PLT VOLUME 10.8 fl (7.5-11.1); MONO % 14.1 % (3.8-10.2); NEUT % 69.4 % (42.8-82.8); PLATELET COUNT 161 K/MM3 (134-434); RBC 4.18 M/mm3 (4.00-5.60); RDW 14.1 % (11.9-15.9); WHITE BLOOD COUNT 7.4 K/mm3 (4.0-10.0)
[2020-09-15 21:18] LABS: INR 1.1 (0.83-1.09); PROTHROMBIN TIME (PATIENT) 13.5 SEC (9.7-13.0)
[2020-09-15 21:21] LABS: ACTIVATED PTT 63.5 SECONDS (25.2-36.5)
[2020-09-15 21:29] LABS: CHLORIDE 112 mmol/L (98-107); SODIUM 139 mmol/L (136-145)
[2020-09-15 21:32] LABS: ANION GAP 7 MMOL/L (8-16); CALCIUM 8.6 mg/dL (8.5-10.1); CO2 21 mmol/L (21-32); GLUCOSE,RANDOM 88 mg/dL (74-106)
[2020-09-15 21:33] LABS: ALBUMIN 3.2 g/dl (3.4-5.0); BLOOD UREA NITROGEN 21.6 mg/dL (7-18)
[2020-09-15 21:35] LABS: CREATININE 2.3 mg/dL (0.55-1.3); SGPT/ALT 75 U/L (13-61); TRIGLYCERIDES 102 mg/dL (0-150)
[2020-09-15 21:36] LABS: CHOLESTEROL 229 mg/dL (50-200); LDL CHOLESTEROL (ONLY SJRH) 130 mg/dL (5-100); SGOT/AST 64 U/L (15-37)
[2020-09-15 21:37] LABS: BILIRUBIN,TOTAL 0.3 mg/dL (0.2-1); TOT PROT 5.8 g/dl (6.4-8.2)
[2020-09-15 21:38] LABS: ALK PHOS 81 U/L (45-117); HDL CHOLESTEROL 64 mg/dL (40-60)
[2020-09-15] MEDS ORDERED: SODIUM CHLORIDE NASAL SPRAY 44 ML BOTTLE NS PRN (22:06)
[2020-09-16] MEDS: levETIRAcetam 500 MG TABLET (FP) PO SCH ×3 (00:35→21:08)
[2020-09-16] MEDS: MEXILETINE HCL 200 MG PO SCH ×3 (00:35→21:10)
[2020-09-16] MEDS: AMIODARONE HCL 200 MG TABLET PO SCH ×3 (00:35→21:07)
[2020-09-16] MEDS: GABAPENTIN 100 MG CAPSULE PO SCH ×4 (00:36→21:08)
[2020-09-16] MEDS ORDERED: PT OWN MED DRAWER 7, Y5N ONE (02:53)
[2020-09-16] MEDS: LEVOTHYROXINE NA 25 MCG TABLET (FP) PO SCH (06:23)
[2020-09-16] MEDS: LIPASE/PROTEASE/AMYLASE 36,000 UNIT CAPSULE PO SCH ×3 (07:57→17:49)
[2020-09-16 08:20] LABS: HEMATOCRIT 37.5 % (35.4-49); HEMOGLOBIN 12.2 GM/dL (11.7-16.9); MCH 30.9 pg (25.7-33.7); MCHC 32.6 g/dl (32.0-35.9); MEAN CELL VOLUME 94.9 fl (80-96); MEAN PLT VOLUME 10.4 fl (7.5-11.1); PLATELET COUNT 150 K/MM3 (134-434); RBC 3.95 M/mm3 (4.00-5.60); RDW 14.1 % (11.9-15.9); WHITE BLOOD COUNT 7.9 K/mm3 (4.0-10.0)
[2020-09-16 08:25] LABS: INR 1.23 (0.83-1.09); PROTHROMBIN TIME (PATIENT) 14.8 SEC (9.7-13.0)
[2020-09-16 08:27] LABS: ACTIVATED PTT 29.4 SECONDS (25.2-36.5)
[2020-09-16] MEDS: VALSARTAN 40 MG TABLET PO SCH (09:57)
[2020-09-16] MEDS: PANTOPRAZOLE 40 MG TABLET PO SCH (09:57)
[2020-09-16] MEDS: METOPROLOL TARTRATE 50 MG TABLET (FP) PO SCH (09:58)
[2020-09-16] MEDS: SPIRONOLACTONE 25 MG TABLET PO SCH (09:58)
[2020-09-16] MEDS ORDERED: HEPARIN NA (PORCINE) 5,000 UNITS/ML 1ML VIAL IVPUSH PRN ×2 (10:29)
[2020-09-16] MEDS: HEPARIN SOD,PORK IN 0.45% NACL 25,000 UNITS/500 ML INFUS.BAG IVPB SCH ×2 (11:00→17:40)
[2020-09-17 01:13] LABS: INR 1.32 (0.83-1.09); PROTHROMBIN TIME (PATIENT) 15.9 SEC (9.7-13.0)
[2020-09-17 01:16] LABS: ACTIVATED PTT 65.6 SECONDS (25.2-36.5)
[2020-09-17] MEDS: GABAPENTIN 100 MG CAPSULE PO SCH ×3 (06:08→21:48)
[2020-09-17] MEDS: LEVOTHYROXINE NA 25 MCG TABLET (FP) PO SCH (06:08)
[2020-09-17 07:47] LABS: HEMATOCRIT 37.4 % (35.4-49); HEMOGLOBIN 12.5 GM/dL (11.7-16.9); INR 1.29 (0.83-1.09); MCH 31.5 pg (25.7-33.7); MCHC 33.4 g/dl (32.0-35.9); MEAN CELL VOLUME 94.3 fl (80-96); MEAN PLT VOLUME 10.5 fl (7.5-11.1); PLATELET COUNT 181 K/MM3 (134-434); PROTHROMBIN TIME (PATIENT) 15.5 SEC (9.7-13.0); RBC 3.97 M/mm3 (4.00-5.60); RDW 13.9 % (11.9-15.9)
[2020-09-17 07:50] LABS: ACTIVATED PTT 79.4 SECONDS (25.2-36.5)
[2020-09-17] MEDS: LIPASE/PROTEASE/AMYLASE 36,000 UNIT CAPSULE PO SCH ×3 (08:20→18:03)
[2020-09-17] MEDS: HEPARIN SOD,PORK IN 0.45% NACL 25,000 UNITS/500 ML INFUS.BAG IVPB SCH ×3 (08:20→21:47)
[2020-09-17 09:31] LABS: ALBUMIN 3.3 g/dl (3.4-5.0); BILIRUBIN,TOTAL 0.4 mg/dL (0.2-1); BLOOD UREA NITROGEN 20.5 mg/dL (7-18); CALCIUM 8.8 mg/dL (8.5-10.1); CREATININE 2.3 mg/dL (0.55-1.3); TOT PROT 5.8 g/dl (6.4-8.2)
[2020-09-17] MEDS: SPIRONOLACTONE 25 MG TABLET PO SCH (10:19)
[2020-09-17] MEDS: VALSARTAN 40 MG TABLET PO SCH (10:19)
[2020-09-17] MEDS: levETIRAcetam 500 MG TABLET (FP) PO SCH ×2 (10:19→21:48)
[2020-09-17] MEDS: PANTOPRAZOLE 40 MG TABLET PO SCH (10:19)
[2020-09-17] MEDS: METOPROLOL TARTRATE 50 MG TABLET (FP) PO SCH (10:20)
[2020-09-17] MEDS: AMIODARONE HCL 200 MG TABLET PO SCH ×2 (10:20→21:48)
[2020-09-17] MEDS: MEXILETINE HCL 200 MG PO SCH ×2 (10:25→21:52)
[2020-09-17] MEDS ORDERED: WARFARIN NA 2 MG TABLET PO SCH (18:00)
[2020-09-18] MEDS: GABAPENTIN 100 MG CAPSULE PO SCH (06:23)
[2020-09-18] MEDS: LEVOTHYROXINE NA 25 MCG TABLET (FP) PO SCH (06:23)
[2020-09-18 08:22] LABS: INR 1.3 (0.83-1.09); PROTHROMBIN TIME (PATIENT) 15.6 SEC (9.7-13.0)
[2020-09-18 08:25] LABS: ACTIVATED PTT 66.3 SECONDS (25.2-36.5)
[2020-09-18 08:32] LABS: HEMATOCRIT 34.9 % (35.4-49); HEMOGLOBIN 11.6 GM/dL (11.7-16.9); MCH 31.3 pg (25.7-33.7); MCHC 33.1 g/dl (32.0-35.9); MEAN CELL VOLUME 94.6 fl (80-96); MEAN PLT VOLUME 10.3 fl (7.5-11.1); PLATELET COUNT 167 K/MM3 (134-434); RBC 3.69 M/mm3 (4.00-5.60); WHITE BLOOD COUNT 7.6 K/mm3 (4.0-10.0)
[2020-09-18 09:23] LABS: ALBUMIN 2.9 g/dl (3.4-5.0); BILIRUBIN,TOTAL 0.4 mg/dL (0.2-1); BLOOD UREA NITROGEN 19.5 mg/dL (7-18); CALCIUM 8.7 mg/dL (8.5-10.1); CREATININE 2.1 mg/dL (0.55-1.3); TOT PROT 5.3 g/dl (6.4-8.2)
[2020-09-18] MEDS: PANTOPRAZOLE 40 MG TABLET PO SCH (09:50)
[2020-09-18] MEDS: METOPROLOL TARTRATE 50 MG TABLET (FP) PO SCH (09:50)
[2020-09-18] MEDS: VALSARTAN 40 MG TABLET PO SCH (09:50)
[2020-09-18] MEDS: SPIRONOLACTONE 25 MG TABLET PO SCH (09:50)
[2020-09-18] MEDS: LIPASE/PROTEASE/AMYLASE 36,000 UNIT CAPSULE PO SCH ×3 (09:50→17:01)
[2020-09-18] MEDS: levETIRAcetam 500 MG TABLET (FP) PO SCH ×2 (09:50→21:55)
[2020-09-18] MEDS: AMIODARONE HCL 200 MG TABLET PO SCH ×2 (09:50→21:55)
[2020-09-18] MEDS: MEXILETINE HCL 200 MG PO SCH ×2 (10:59→21:57)
[2020-09-18] MEDS: HEPARIN SOD,PORK IN 0.45% NACL 25,000 UNITS/500 ML INFUS.BAG IVPB SCH ×2 (11:31→18:09)
[2020-09-18] MEDS ORDERED: PT OWN MED DRAWER 7, Y5N ONE ×2 (12:18→16:51)
[2020-09-18] MEDS: WARFARIN NA 3 MG TABLET PO SCH (17:01)
[2020-09-19] MEDS ORDERED: PT OWN MED DRAWER 7, Y5N ONE (05:48)
[2020-09-19] MEDS: LEVOTHYROXINE NA 25 MCG TABLET (FP) PO SCH (06:38)
[2020-09-19 07:34] LABS: INR 1.35 (0.83-1.09); PROTHROMBIN TIME (PATIENT) 16.2 SEC (9.7-13.0)
[2020-09-19 07:35] LABS: HEMATOCRIT 36.1 % (35.4-49); HEMOGLOBIN 11.9 GM/dL (11.7-16.9); MCH 31.3 pg (25.7-33.7); MEAN CELL VOLUME 94.9 fl (80-96); MEAN PLT VOLUME 10.5 fl (7.5-11.1); PLATELET COUNT 166 K/MM3 (134-434); RDW 13.8 % (11.9-15.9); WHITE BLOOD COUNT 8.5 K/mm3 (4.0-10.0)
[2020-09-19 07:37] LABS: ACTIVATED PTT 70.3 SECONDS (25.2-36.5)
[2020-09-19] MEDS: LIPASE/PROTEASE/AMYLASE 36,000 UNIT CAPSULE PO SCH ×3 (09:00→17:28)
[2020-09-19] MEDS: AMIODARONE HCL 200 MG TABLET PO SCH ×2 (10:59→21:32)
[2020-09-19] MEDS: SPIRONOLACTONE 25 MG TABLET PO SCH (10:59)
[2020-09-19] MEDS: PANTOPRAZOLE 40 MG TABLET PO SCH (10:59)
[2020-09-19] MEDS: METOPROLOL TARTRATE 50 MG TABLET (FP) PO SCH (10:59)
[2020-09-19] MEDS: MEXILETINE HCL 200 MG PO SCH ×2 (10:59→21:32)
[2020-09-19] MEDS: HEPARIN SOD,PORK IN 0.45% NACL 25,000 UNITS/500 ML INFUS.BAG IVPB SCH ×2 (11:00→21:31)
[2020-09-19] MEDS: levETIRAcetam 500 MG TABLET (FP) PO SCH ×2 (11:00→21:32)
[2020-09-19] MEDS: VALSARTAN 40 MG TABLET PO SCH (11:00)
[2020-09-19] MEDS: WARFARIN NA 3 MG TABLET PO SCH (17:28)
[2020-09-20] MEDS: LEVOTHYROXINE NA 25 MCG TABLET (FP) PO SCH (06:15)
[2020-09-20 10:24] LABS: EOS % 1.8 % (0-4.5); HEMATOCRIT 36.3 % (35.4-49); HEMOGLOBIN 11.8 GM/dL (11.7-16.9); LYMPH % 12.3 % (8-40); MCH 30.5 pg (25.7-33.7); MCHC 32.4 g/dl (32.0-35.9); MEAN CELL VOLUME 94.2 fl (80-96); MEAN PLT VOLUME 10.1 fl (7.5-11.1); MONO % 13.5 % (3.8-10.2); NEUT % 71.4 % (42.8-82.8); PLATELET COUNT 164 K/MM3 (134-434); RBC 3.86 M/mm3 (4.00-5.60); RDW 13.9 % (11.9-15.9); WHITE BLOOD COUNT 6.6 K/mm3 (4.0-10.0)
[2020-09-20] MEDS: LIPASE/PROTEASE/AMYLASE 36,000 UNIT CAPSULE PO SCH ×3 (10:29→17:42)
[2020-09-20] MEDS: PANTOPRAZOLE 40 MG TABLET PO SCH (10:29)
[2020-09-20] MEDS: levETIRAcetam 500 MG TABLET (FP) PO SCH ×2 (10:29→21:22)
[2020-09-20] MEDS: VALSARTAN 40 MG TABLET PO SCH (10:29)
[2020-09-20] MEDS: METOPROLOL TARTRATE 50 MG TABLET (FP) PO SCH (10:29)
[2020-09-20] MEDS: AMIODARONE HCL 200 MG TABLET PO SCH ×2 (10:29→21:22)
[2020-09-20] MEDS: SPIRONOLACTONE 25 MG TABLET PO SCH (10:29)
[2020-09-20] MEDS: MEXILETINE HCL 200 MG PO SCH ×2 (10:30→21:22)
[2020-09-20] MEDS: HEPARIN SOD,PORK IN 0.45% NACL 25,000 UNITS/500 ML INFUS.BAG IVPB SCH ×2 (10:30→22:25)
[2020-09-20 10:41] LABS: INR 1.43 (0.83-1.09); PROTHROMBIN TIME (PATIENT) 17.1 SEC (9.7-13.0)
[2020-09-20 10:44] LABS: ACTIVATED PTT 48.4 SECONDS (25.2-36.5); CALCIUM 8.8 mg/dL (8.5-10.1)
[2020-09-20 10:45] LABS: ALBUMIN 2.9 g/dl (3.4-5.0)
[2020-09-20 10:48] LABS: CREATININE 2.3 mg/dL (0.55-1.3)
[2020-09-20 10:50] LABS: BILIRUBIN,TOTAL 0.4 mg/dL (0.2-1); TOT PROT 5.4 g/dl (6.4-8.2)
[2020-09-20] MEDS ORDERED: PT OWN MED DRAWER 7, Y5N ONE (11:41)
[2020-09-20] MEDS: WARFARIN NA 3 MG TABLET PO SCH (17:42)
[2020-09-20 18:37] LABS: URINE APPEARANCE CLEAR; URINE BILIRUBIN NEGATIVE (NEGATIVE); URINE COLOR YELLOW; URINE GLUCOSE (UA) NEGATIVE (NEGATIVE); URINE KETONE NEGATIVE (NEGATIVE); URINE LEUK ESTERASE NEGATIVE (NEGATIVE); URINE NITRITE NEGATIVE (NEGATIVE); URINE PROTEIN NEGATIVE (NEGATIVE); URINE UROBILINOGEN 0.2 mg/dL (0.2-1.0)
[2020-09-21] MEDS ORDERED: PT OWN MED DRAWER 7, Y5N ONE ×3 (05:27→11:34)
[2020-09-21] MEDS: LEVOTHYROXINE NA 25 MCG TABLET (FP) PO SCH (06:13)
[2020-09-21 07:23] LABS: INR 1.46 (0.83-1.09); PROTHROMBIN TIME (PATIENT) 17.5 SEC (9.7-13.0)
[2020-09-21 07:24] LABS: HEMATOCRIT 40.4 % (35.4-49); HEMOGLOBIN 13.2 GM/dL (11.7-16.9); MCHC 32.7 g/dl (32.0-35.9); MEAN CELL VOLUME 94.8 fl (80-96); MEAN PLT VOLUME 10.6 fl (7.5-11.1); PLATELET COUNT 195 K/MM3 (134-434); RBC 4.26 M/mm3 (4.00-5.60); RDW 14.1 % (11.9-15.9); WHITE BLOOD COUNT 9.2 K/mm3 (4.0-10.0)
[2020-09-21] MEDS: LIPASE/PROTEASE/AMYLASE 36,000 UNIT CAPSULE PO SCH ×3 (08:00→16:41)
[2020-09-21] MEDS: SPIRONOLACTONE 25 MG TABLET PO SCH (10:26)
[2020-09-21] MEDS: VALSARTAN 40 MG TABLET PO SCH (10:26)
[2020-09-21] MEDS: levETIRAcetam 500 MG TABLET (FP) PO SCH ×2 (10:26→21:34)
[2020-09-21] MEDS: METOPROLOL TARTRATE 50 MG TABLET (FP) PO SCH (10:26)
[2020-09-21] MEDS: PANTOPRAZOLE 40 MG TABLET PO SCH (10:27)
[2020-09-21] MEDS: HEPARIN SOD,PORK IN 0.45% NACL 25,000 UNITS/500 ML INFUS.BAG IVPB SCH ×2 (10:27→23:45)
[2020-09-21] MEDS: AMIODARONE HCL 200 MG TABLET PO SCH ×2 (10:27→21:34)
[2020-09-21] MEDS: MEXILETINE HCL 200 MG PO SCH ×2 (10:27→22:55)
[2020-09-21] MEDS: WARFARIN NA 2 MG TABLET PO SCH (17:01)
[2020-09-22] MEDS: LEVOTHYROXINE NA 25 MCG TABLET (FP) PO SCH (06:04)
[2020-09-22 07:47] LABS: HEMOGLOBIN 11.5 GM/dL (11.7-16.9); MCH 30.7 pg (25.7-33.7); MCHC 32.1 g/dl (32.0-35.9); MEAN CELL VOLUME 95.8 fl (80-96); MEAN PLT VOLUME 11.4 fl (7.5-11.1); PLATELET COUNT 158 K/MM3 (134-434); RBC 3.76 M/mm3 (4.00-5.60); RDW 14.2 % (11.9-15.9); WHITE BLOOD COUNT 7.1 K/mm3 (4.0-10.0)
[2020-09-22 08:36] LABS: BILIRUBIN,TOTAL 0.4 mg/dL (0.2-1); BLOOD UREA NITROGEN 23.6 mg/dL (7-18); CALCIUM 8.6 mg/dL (8.5-10.1); CREATININE 2.2 mg/dL (0.55-1.3); TOT PROT 5.2 g/dl (6.4-8.2)
[2020-09-22] MEDS: LIPASE/PROTEASE/AMYLASE 36,000 UNIT CAPSULE PO SCH ×3 (09:14→18:08)
[2020-09-22] MEDS: AMIODARONE HCL 200 MG TABLET PO SCH ×2 (09:15→21:15)
[2020-09-22] MEDS: MEXILETINE HCL 200 MG PO SCH ×3 (09:15→22:15)
[2020-09-22] MEDS: SPIRONOLACTONE 25 MG TABLET PO SCH (09:15)
[2020-09-22] MEDS: VALSARTAN 40 MG TABLET PO SCH (09:15)
[2020-09-22] MEDS: PANTOPRAZOLE 40 MG TABLET PO SCH (09:15)
[2020-09-22] MEDS: METOPROLOL TARTRATE 50 MG TABLET (FP) PO SCH (09:15)
[2020-09-22] MEDS: levETIRAcetam 500 MG TABLET (FP) PO SCH ×2 (09:15→21:15)
[2020-09-22 10:09] LABS: INR 1.84 (0.83-1.09); PROTHROMBIN TIME (PATIENT) 21.9 SEC (9.7-13.0)
[2020-09-22] MEDS: HEPARIN SOD,PORK IN 0.45% NACL 25,000 UNITS/500 ML INFUS.BAG IVPB SCH (10:40)
[2020-09-22] MEDS ORDERED: POLYETHYLENE GLYCOL 3350 119 GM BTL PO SCH (11:45)
[2020-09-22] MEDS ORDERED: PROPOFOL 20 ML ONE (13:05)
[2020-09-22] MEDS ORDERED: MIDAZOLAM HCL 2 MG/2 ML SINGLE DOSE VIAL ONE ×2 (13:05→13:38)
[2020-09-22] MEDS ORDERED: ceFAZolin SODIUM 1 GM VIAL ONE (13:37)
[2020-09-22] MEDS: MAGNESIUM CITRATE 300 ML BOTTLE PO SCH ×2 (16:46→23:20)
[2020-09-22] MEDS: WARFARIN NA 2 MG TABLET PO SCH (18:08)
[2020-09-22] MEDS ORDERED: PT OWN MED DRAWER 7, Y5N ONE (20:47)
[2020-09-23] MEDS: LEVOTHYROXINE NA 25 MCG TABLET (FP) PO SCH (06:26)
[2020-09-23] MEDS: HEPARIN SOD,PORK IN 0.45% NACL 25,000 UNITS/500 ML INFUS.BAG IVPB SCH ×2 (06:29→09:54)
[2020-09-23 08:25] LABS: INR 1.85 (0.83-1.09); PROTHROMBIN TIME (PATIENT) 22.4 SEC (9.7-13.0)
[2020-09-23] MEDS: SPIRONOLACTONE 25 MG TABLET PO SCH (09:52)
[2020-09-23] MEDS: VALSARTAN 40 MG TABLET PO SCH (09:52)
[2020-09-23] MEDS: METOPROLOL TARTRATE 50 MG TABLET (FP) PO SCH (09:52)
[2020-09-23] MEDS: AMIODARONE HCL 200 MG TABLET PO SCH ×2 (09:52→21:53)
[2020-09-23] MEDS: levETIRAcetam 500 MG TABLET (FP) PO SCH ×2 (09:52→21:53)
[2020-09-23] MEDS: PANTOPRAZOLE 40 MG TABLET PO SCH (09:52)
[2020-09-23] MEDS: LIPASE/PROTEASE/AMYLASE 36,000 UNIT CAPSULE PO SCH ×3 (09:53→17:54)
[2020-09-23] MEDS: MEXILETINE HCL 200 MG PO SCH ×2 (09:53→21:54)
[2020-09-23] MEDS: POLYETHYLENE GLYCOL 3350 119 GM BTL PO SCH ×2 (09:53→21:54)
[2020-09-23 13:09] VITALS: BMI 31.3
[2020-09-23] MEDS: WARFARIN NA 2 MG TABLET PO SCH (17:54)
[2020-09-24] MEDS: LEVOTHYROXINE NA 25 MCG TABLET (FP) PO SCH (06:28)
[2020-09-24] MEDS: LIPASE/PROTEASE/AMYLASE 36,000 UNIT CAPSULE PO SCH ×2 (09:36→12:36)
[2020-09-24] MEDS: levETIRAcetam 500 MG TABLET (FP) PO SCH (10:10)
[2020-09-24] MEDS: METOPROLOL TARTRATE 50 MG TABLET (FP) PO SCH (10:10)
[2020-09-24] MEDS: SPIRONOLACTONE 25 MG TABLET PO SCH (10:10)
[2020-09-24] MEDS: PANTOPRAZOLE 40 MG TABLET PO SCH (10:10)
[2020-09-24] MEDS: VALSARTAN 40 MG TABLET PO SCH (10:11)
[2020-09-24] MEDS: AMIODARONE HCL 200 MG TABLET PO SCH (10:11)
[2020-09-24] MEDS: MEXILETINE HCL 200 MG PO SCH (10:16)
[2020-09-24] MEDS: POLYETHYLENE GLYCOL 3350 119 GM BTL PO SCH (10:17)
[2020-09-24 10:24] LABS: INR 2.11 (0.83-1.09)
[2020-09-24 10:27] LABS: ACTIVATED PTT 33.3 SECONDS (25.2-36.5)
[2020-09-24 10:57] LABS: EOS % 1.6 % (0-4.5); HEMATOCRIT 39.2 % (35.4-49); HEMOGLOBIN 12.6 GM/dL (11.7-16.9); LYMPH % 9.5 % (8-40); MCHC 32.3 g/dl (32.0-35.9); MEAN PLT VOLUME 10.4 fl (7.5-11.1); MONO % 15.7 % (3.8-10.2); NEUT % 72.2 % (42.8-82.8); PLATELET COUNT 154 K/MM3 (134-434); RBC 4.08 M/mm3 (4.00-5.60); RDW 14.5 % (11.9-15.9); WHITE BLOOD COUNT 7.1 K/mm3 (4.0-10.0)
[2020-09-24 14:41] VITALS: BP 115/67; PULSE 120; TEMP 97.9
== END 2020-09-24 16:14 | disposition home or self-care (01) | DRG 988 ==
LOC: JER 10:41 → JERBED 13:15 → J7W 19:24 → J4W 09-15 21:47
PROVIDERS: ADMIT Internal Medicine; ATTEND Internal Medicine
PROC: 0DBM8ZX Excision of Descending Colon, Via Natural or Artificial Opening Endoscopic, Diagnostic (ICD-10-PCS; 2020-09-12)
PROC: 0W3P8ZZ Control Bleeding in Gastrointestinal Tract, Via Natural or Artificial Opening Endoscopic (ICD-10-PCS; 2020-09-12)
PROC: 06LY4CC Occlusion of Hemorrhoidal Plexus with Extraluminal Device, Percutaneous Endoscopic Approach (ICD-10-PCS; principal; 2020-09-12 07:30)
DX: D68.32 Hemorrhagic disorder due to extrinsic circulating anticoagulants (principal); K92.1 Melena; I69.354 Hemiplegia and hemiparesis following cerebral infarction affecting left non-dominant side; I42.8 Other cardiomyopathies; N17.9 Acute kidney failure, unspecified; I13.0 Hypertensive heart and chronic kidney disease with heart failure and stage 1 through stage 4 chronic kidney disease, or unspecified chronic kidney disease; I50.22 Chronic systolic (congestive) heart failure; G45.9 Transient cerebral ischemic attack, unspecified; K64.8 Other hemorrhoids; N18.9 Chronic kidney disease, unspecified; I48.91 Unspecified atrial fibrillation; Z79.01 Long term (current) use of anticoagulants; E78.5 Hyperlipidemia, unspecified; I44.7 Left bundle-branch block, unspecified; Z95.810 Presence of automatic (implantable) cardiac defibrillator; I25.10 Atherosclerotic heart disease of native coronary artery without angina pectoris; I48.0 Paroxysmal atrial fibrillation; E03.9 Hypothyroidism, unspecified; K63.5 Polyp of colon; G93.89 Other specified disorders of brain; K59.00 Constipation, unspecified; D12.1 Benign neoplasm of appendix; G62.9 Polyneuropathy, unspecified; R79.89 Other specified abnormal findings of blood chemistry
CPT/HCPCS: 36415; 70450-TC; 71045-TC-FY; 74019-TC-FY; 74176-TC; 76700-TC; 80048; 80053; 80061; 80076; 81003; 82272; 82550; 82728; 82962; 83516; 83550; 83605; 83690; 83721; 84484; 85025; 85027; 85610; 85730; 86038; 86850; 86900; 86901; 88305-TC; 93005; 93010; 97116-GP; 97161-GP; 99285-25; C9803; J1644; Q9967; U0003; U0005